=== PATIENT | female | born 1950 | race Caucasian/White ===

== ENCOUNTER 2017-11-03 16:42 | Inpatient (IN) | payer MEDICARE ==
[2017-11-03] MEDS ORDERED: SODIUM CHLORIDE 0.9% 500 ML IV STA (17:08)
[2017-11-03] MEDS ORDERED: SODIUM CHLORIDE 0.9% 1,000 ML IV STA (17:08)
[2017-11-03] MEDS ORDERED: ONDANSETRON 4 MG/2 ML VIAL IVP STA (17:08)
--- NOTE | 2017-11-03 17:12 | ED ---
Nausea/Vomiting/Diarrhea HPI - General Chief complaint: Nausea/Vomiting/Diarrhea Stated complaint: DIARRHEA, VOMITING Time Seen by Provider: 11/03/17 17:03 Source: patient, EMS Mode of arrival: EMS Limitations: no limitations - History of Present Illness Initial comments: 67-year-old female patient presents to the emergency department today for evaluation of vomiting and diarrhea. Patient reports that symptoms started around 5:30 this morning. Daughter reports that around midday she get a neurological checks message from her mother so she called. Reported that she had been vomiting and having diarrhea throughout the day. States that she went to check on her after work and found her on her knees neck to the bed. They're unsure how long she bent down there. Patient reports feeling very weak, having intermittent abdominal pain. Denies any hematemesis, hematochezia, melena. She denies any chest pain, shortness of breath, or dizziness. She denies any fevers or chills. Denies any hematuria, dysuria, urinary frequency, urinary urgency. Patient denies any recent rash, back pain, numbness, tingling, headache, visual changes, or any other complaints. - Related Data Home Medications Medication Instructions Recorded Confirmed ALPRAZolam [Xanax] 0.5 mg PO BID PRN 01/06/16 11/03/17 Aspirin 81 mg PO DAILY 01/06/16 11/03/17 Calcium Carbonate/Vitamin D3 2 tab PO DAILY 01/06/16 11/03/17 [Caltrate 600 Plus D3 Tablet] Fluticasone/Salmeterol [Advair 1 inhalation PO RT-BID 01/06/16 11/03/17 500-50 Diskus] Furosemide [Lasix] 40 mg PO DAILY 01/06/16 11/03/17 Hydrocortisone [Cortef] 10 mg PO BID 01/06/16 11/03/17 Metoprolol Tartrate 12.5 mg PO HS 01/06/16 11/03/17 Montelukast [Singulair] 10 mg PO HS 01/06/16 11/03/17 Multivitamins, Thera [Multivitamin 1 tab PO DAILY 01/06/16 11/03/17 (formulary)] Nitroglycerin Sl Tabs [Nitrostat] 0.4 mg SUBLINGUAL Q5M PRN 01/06/16 11/03/17 Omalizumab [Xolair] 150 mg SQ Q14D 01/06/16 11/03/17 Omeprazole 20 mg PO DAILY 01/06/16 11/03/17 Oxybutynin Chloride 5 mg PO BID 01/06/16 11/03/17 Potassium Chloride [Klor-Con 20] 20 meq PO DAILY 01/06/16 11/03/17 Levothyroxine Sodium [Synthroid] 75 mcg PO DAILY 11/03/17 11/03/17 Allergies Allergy/AdvReac Type Severity Reaction Status Date / Time codeine Allergy Rash/Hives, Verified 11/03/17 16:58 N/V ibuprofen Allergy Anaphylaxis Verified 11/03/17 16:58 lisinopril Allergy Rash/Hives Verified 11/03/17 16:58 naproxen [From Naprosyn] Allergy Anaphylaxis Verified 11/03/17 16:58 streptomycin Allergy Anaphylaxis Verified 11/03/17 16:58 alendronate sodium AdvReac Nausea & Verified 11/03/17 16:58 [From Fosamax] Vomiting Review of Systems ROS Statement: Those systems with pertinent positive or pertinent negative responses have been documented in the HPI. ROS Other: All systems not noted in ROS Statement are negative. Past Medical History Past Medical History: Asthma, COPD, Myocardial Infarction (NM) Additional Past Medical History / Comment(s): See Juan Luis's H&P,uses O2 @ 2 liters NC,urine incont.,daily steroid,pituitary tumor,blind rt eye,loss peripheral vision lt eye Last Myocardial Infarction Date:: 2012 History of Any Multi-Drug Resistant Organisms: MRSA Date of last positivie culture/infection: 2008 MDRO Source:: rt forehead Past Surgical History: Adenoidectomy, Appendectomy, Cholecystectomy, Heart Catheterization With Stent, Hysterectomy, Orthopedic Surgery, Tonsillectomy, Tubal Ligation Additional Past Surgical History / Comment(s): brain surg to remove pituitary tumor,expl lap,vaginal cyst removed,bladder susp,carpel tunnel joseph hands,surg lt foot x3,rt forehead bone removed due to mrsa, artificial cap placed to rt forehead,screws and plate remove from skull,lt cataract,lt breast bx,heart stents x2 Past Anesthesia/Blood Transfusion Reactions: Postoperative Nausea & Vomiting ( PONV) Additional Past Anesthesia/Blood Transfusion Reaction / Comment(s): no hx blood transfusion Date of Last Stent Placement:: 2--2013 Past Psychological History: Anxiety Smoking Status: Former smoker Past Alcohol Use History: None Reported Past Drug Use History: None Reported - Past Family History Mother Family Medical History: Cancer Additional Family Medical History / Comment(s): ovarian Father Family Medical History: COPD Additional Family Medical History / Comment(s): heart problems,emphysema Brother(s) Additional Family Medical History / Comment(s): cabg-4 vessels Sister(s) Family Medical History: Cancer Additional Family Medical History / Comment(s): kidney General Exam Limitations: no limitations General appearance: in no apparent distress, other (This is a well-developed, ill-appearing elderly female patient in no acute distress. Vital signs upon presentation are temperature 97.1F, pulse 113, respirations 18, blood pressure 117/58, pulse ox 94% on room air.) Eye exam: Present: normal appearance, PERRL, EOMI. Absent: scleral icterus, conjunctival injection, periorbital swelling ENT exam: Present: normal exam. Absent: mucous membranes moist (Dry mucous membranes) Respiratory exam: Present: normal lung sounds bilaterally. Absent: respiratory distress, wheezes, rales, rhonchi, stridor Cardiovascular Exam: Present: normal rhythm, tachycardia, normal heart sounds. Absent: systolic murmur, diastolic murmur, rubs, gallop, clicks GI/Abdominal exam: Present: soft, tenderness (Right and left lower quadrant tenderness), normal bowel sounds. Absent: distended, guarding, rebound, rigid Neurological exam: Present: oriented X3, CN II-XII intact. Absent: alert ( Drowsy) Psychiatric exam: Present: normal affect, normal mood Skin exam: Present: warm, dry, intact, normal color. Absent: rash Course Vital Signs 11/03/17 11/03/17 11/03/17 16:45 19:55 20:05 Temperature 97.1 F L 100.1 F H 100.1 F H Pulse Rate 113 H 109 H Respiratory 18 20 Rate Blood Pressure 117/58 124/59 O2 Sat by Pulse 94 L 94 L Oximetry 11/03/17 21:34 Temperature 102.0 F H Pulse Rate 109 H Respiratory 20 Rate Blood Pressure 124/59 O2 Sat by Pulse 96 Oximetry Medical Decision Making - Medical Decision Making 67-year-old female patient presents to the emergency department today for evaluation of vomiting and diarrhea. Patient did have some mild lower abdominal tenderness. Labs reviewed and showed a white blood cell count of 11.3 , BUN of 21, creatinine 1.29. Urinalysis was negative. Patient did develop a temperature towards and of her visit. She'll be admitted to the emergency department today for dehydration, acute on chronic renal failure, gastroenteritis. - Lab Data Result diagrams: 11/03/17 18:05 11/03/17 18:05 Lab Results 11/03/17 11/03/17 11/03/17 Range/Units 18:05 18:05 19:13 WBC 11.3 H (3.8-10.6) k/uL RBC 5.04 (3.80-5.40) m/uL Hgb 15.3 (11.4-16.0) gm/dL Hct 46.3 H (34.0-46.0) % MCV 91.9 (80.0-100.0) fL MCH 30.4 (25.0-35.0) pg MCHC 33.1 (31.0-37.0) g/dL RDW 12.4 (11.5-15.5) % Plt Count 239 (150-450) k/uL Neutrophils % 80 % Lymphocytes % 12 % Monocytes % 5 % Eosinophils % 2 % Basophils % 0 % Neutrophils # 9.1 H (1.3-7.7) k/uL Lymphocytes # 1.3 (1.0-4.8) k/uL Monocytes # 0.5 (0-1.0) k/uL Eosinophils # 0.3 (0-0.7) k/uL Basophils # 0.1 (0-0.2) k/uL Sodium 143 (137-145) mmol/L Potassium 4.3 (3.5-5.1) mmol/L Chloride 108 H (98-107) mmol/L Carbon Dioxide 24 (22-30) mmol/L Anion Gap 11 mmol/L BUN 21 H (7-17) mg/dL Creatinine 1.29 H (0.52-1.04) mg/dL Est GFR (CKD-EPI)AfAm 49 (>60 ml/min/1.73 sqM) Est GFR (CKD-EPI)NonAf 42 (>60 ml/min/1.73 sqM) Glucose 99 (74-99) mg/dL Calcium 8.2 L (8.4-10.2) mg/dL Total Bilirubin 0.6 (0.2-1.3) mg/dL AST 39 H (14-36) U/L ALT 31 (9-52) U/L Alkaline Phosphatase 62 (38-126) U/L Creatine Kinase 109 (30-135) U/L Total Protein 6.1 L (6.3-8.2) g/dL Albumin 3.6 (3.5-5.0) g/dL Amylase 51 (30-110) U/L Lipase 146 (23-300) U/L Urine Color Yellow Urine Appearance Clear (Clear) Urine pH 8.0 (5.0-8.0) Ur Specific [place] 1.012 (1.001-1.035) Urine Protein Trace H (Negative) Urine Glucose (UA) Negative (Negative) Urine Ketones Negative (Negative) Urine Blood Negative (Negative) Urine Nitrite Negative (Negative) Urine Bilirubin Negative (Negative) Urine Urobilinogen <2.0 (<2.0) mg/dL Ur Leukocyte Esterase Negative (Negative) - Radiology Data Radiology results: report reviewed, image reviewed Two-view x-ray of the abdomen shows bowel gas pattern is normal. There is no sign of intestinal obstruction or pneumoperitoneum. Fecal pattern is normal. There are clips from cholecystectomy. Lung bases are clear. There are no pathologic calcifications over the kidneys. Impression by Dr. Marinelli shows nonacute abdomen. Disposition Clinical Impression: Gastroenteritis, Altered mental status, unspecified Disposition: ADMITTED IP TO THIS [facility] Condition: Serious Decision to Admit Reason: Admit from EC Decision Date: 11/03/17 Decision Time: 19:52
[2017-11-03 18:22] LABS: Basophils # (A) 0.1 k/uL (0-0.2); Basophils % (A) 0 %; Eosinophils # (A) 0.3 k/uL (0-0.7); Eosinophils % (A) 2 %; HCT 46.3 % (34.0-46.0); HGB 15.3 gm/dL (11.4-16.0); Lymphocytes # (A) 1.3 k/uL (1.0-4.8); Lymphocytes % (A) 12 %; MCH 30.4 pg (25.0-35.0); MCHC 33.1 g/dL (31.0-37.0); MCV 91.9 fL (80.0-100.0); Mean Platelet Volume 9.5; Monocytes # (A) 0.5 k/uL (0-1.0); Monocytes % (A) 5 %; Neutrophils # (A) 9.1 k/uL (1.3-7.7); Neutrophils % (A) 80 %; Platelet Count 239 k/uL (150-450); RBC 5.04 m/uL (3.80-5.40); RDW 12.4 % (11.5-15.5); WBC 11.3 k/uL (3.8-10.6)
[2017-11-03 18:26] LABS: Albumin 3.6 g/dL (3.5-5.0); Calcium 8.2 mg/dL (8.4-10.2); Potassium 4.3 mmol/L (3.5-5.1); Total Bilirubin 0.6 mg/dL (0.2-1.3); Total Protein 6.1 g/dL (6.3-8.2)
--- NOTE | 2017-11-03 18:46 | XR ---
EXAMINATION TYPE: XR KUB DATE OF EXAM: 11/03/2017 COMPARISON: NONE HISTORY: Fever and weakness TECHNIQUE: 2 views FINDINGS: Bowel gas pattern is normal. There is no sign of intestinal obstruction or pneumoperitoneum . Fecal pattern is normal. There are clips from cholecystectomy. Lung bases are clear. There are no p athologic calcifications over the kidneys. IMPRESSION: Nonacute abdomen.
[2017-11-03 19:31] LABS: Appearance,Urine Clear (Clear); Bilirubin,Urine Negative (Negative); Blood,Urine Negative (Negative); Color,Urine Yellow; Glucose,Urine (UA) Negative (Negative); Ketones,Urine Negative (Negative); Leukocyte Esterase,Urine Negative (Negative); Nitrite,Urine Negative (Negative); Protein,Urine Trace (Negative); Specific Gravity,Urine 1.012 (1.001-1.035); Urobilinogen,Urine <2.0 mg/dL (<2.0)
[2017-11-03] MEDS ORDERED: NALOXONE 0.4 MG/ML 1 ML VIAL IV PRN (19:48)
[2017-11-03] MEDS ORDERED: ONDANSETRON 4 MG/2 ML VIAL IVP PRN (19:48)
[2017-11-03] MEDS ORDERED: ACETAMINOPHEN TAB 500 MG TAB PO STA (20:08)
[2017-11-04] MEDS: SODIUM CHLORIDE 0.9% 1,000 ML IV SCH ×5 (02:58→22:20)
[2017-11-04 09:00] LABS: Basophils # (A) 0.1 k/uL (0-0.2); Basophils % (A) 1 %; Eosinophils # (A) 0.2 k/uL (0-0.7); Eosinophils % (A) 3 %; HCT 40.5 % (34.0-46.0); HGB 13.6 gm/dL (11.4-16.0); Lymphocytes # (A) 1.9 k/uL (1.0-4.8); Lymphocytes % (A) 22 %; MCH 31.4 pg (25.0-35.0); MCHC 33.5 g/dL (31.0-37.0); MCV 93.5 fL (80.0-100.0); Mean Platelet Volume 8.9; Monocytes # (A) 0.5 k/uL (0-1.0); Monocytes % (A) 6 %; Neutrophils # (A) 5.9 k/uL (1.3-7.7); Neutrophils % (A) 68 %; Platelet Count 207 k/uL (150-450); RBC 4.33 m/uL (3.80-5.40); RDW 12.4 % (11.5-15.5); WBC 8.7 k/uL (3.8-10.6)
[2017-11-04 09:41] LABS: Albumin 2.8 g/dL (3.5-5.0); Calcium 7.1 mg/dL (8.4-10.2); Potassium 3.8 mmol/L (3.5-5.1); Total Bilirubin 0.6 mg/dL (0.2-1.3); Total Protein 5.1 g/dL (6.3-8.2)
[2017-11-04] MEDS ORDERED: NITROGLYCERIN SL TABS 0.4 MG TAB SUBLINGUAL PRN (13:15)
[2017-11-04] MEDS ORDERED: OMALIZUMAB 150 MG VIAL SQ SCH (13:15)
[2017-11-04] MEDS: ACETAMINOPHEN TAB 325 MG TAB PO PRN ×2 (14:33→21:19)
[2017-11-04] MEDS: HYDROCORTISONE SUCCINATE 100 MG/2 ML VIAL IV SCH ×2 (16:13→23:11)
--- NOTE | 2017-11-04 18:17 | HP ---
HISTORY AND PHYSICAL CHIEF COMPLAINTS: Nausea and vomiting, diarrhea. HISTORY OF PRESENT ILLNESS: This 67-year-old woman with a past medical history of multiple medical problems including asthma, COPD, history of myocardial infarction, history of steroid dependence adenoidectomy, bladder surgery, CAD stent, brain surgery removed, pituitary tumor, being followed by Dr. Ramon in the outpatient setting complaining of nausea and diarrhea for the last several days and the patient came to [facility] and admitted for further evaluation and treatment. There is no history of fever, rigors. No history of headache, loss of consciousness, seizures. PAST MEDICAL HISTORY: History of asthma, COPD, microinfarction, history of appendectomy, bladder surgery, CAD stent, anxiety. MEDICATIONS: Prior to admission include home medications are: 1. Lasix 40 mg p.o. daily. 2. Klor-Con 20 mEq p.o. daily. 3. Oxybutynin 5 mg p.o. b.i.d. 4. Omeprazole 20 mg p.o. daily. 5. Xolair 150 mg Q 14 days. 6. Nitrostat 0.4 sublingual p.r.n. 7. Multivitamins 1 p.o. daily. 8. Singular 10 mg q.h.s. 9. Metoprolol 12.5 mg q.h.s. 10.Synthroid 75 mcg. 11.Cortef 10 mg p.o. b.i.d. 12.Advair 500/50 1 puff b.i.d. 13.Caltrate 1 to 2 tablets p.o. daily. 14.Aspirin 81 mg p.o. 15.Xanax 0.5 p.o. b.i.d. p.r.n. ALLERGIES: ARE CODEINE, IBUPROFEN, LISINOPRIL, NAPROSYN, STREPTOMYCIN, FOSAMAX. FAMILY HISTORY: History of ovarian cancer. SOCIAL HISTORY: No history of smoking. No history of alcohol intake. Previous history of smoking. REVIEW OF SYSTEMS: ENT: No diminished vision. No diminished hearing. CARDIOVASCULAR: No angina or palpitations. Respiratory: No cough. GI: As mentioned earlier. : No dysuria or retention. NERVOUS SYSTEM: No numbness or weakness. Allergy/Immunology: No asthma or hayfever. Musculoskeletal as mentioned earlier. Hematology/Oncology: No history of anemia. Endocrine: Hypothyroidism. CONSTITUTIONAL: As mentioned earlier. Dermatology: Negative. Rheumatology: As mentioned earlier. Psychiatric: As mentioned earlier. PHYSICAL EXAMINATION: Alert, oriented times three, pulse 92, blood pressure 100/59, respiration 18, temperature 102.8, pulse ox 97% on room air. HEENT: Conjunctivae normal. Oral mucosa dry. Neck is no jugular venous distention. No carotid bruit. No lymph node enlargement. Cardiovascular: S1-S2 muffled. Respiratory: Breath sounds diminished in the bases. No rhonchi. No crackles. ABDOMEN: Soft, nontender. No mass palpable. Legs no edema and no swelling. NERVOUS SYSTEM: Higher functions as mentioned earlier. Moves all four limbs. No focal deficits. Lymphatics: No lymph nodes palpable in the neck, axillae or groin. SKIN: No ulcer, rashes or bleeding. LAB DATA: CBC within normal limits. Otherwise, creatinine is 1.30 and calcium is 7.1 and albumin is 2.8. ASSESSMENT: 1. Nausea and diarrhea possible acute gastroenteritis. 2. Fever for evaluation. 3. Increased creatinine with possibly chronic kidney stage 3. 4. History of pituitary insufficiency. 5. Asthma/chronic obstructive pulmonary disease. 6. History of myocardial infarction. 7. History of adenoidectomy. 8. History of coronary artery disease, stent. 9. History of brain surgery with pituitary tumor removal. 10.History of anxiety. 11.Remote history of nicotine dependence. RECOMMENDATIONS AND DISCUSSION: In this 67-year-old woman with a past history of multiple medical problems, we will monitor the patient closely, continue the current medications, continue symptomatic treatment. I recommend blood cultures and I would also recommend infectious disease evaluation. Otherwise, stress dose IV steroids have been planned at this time. Continue the rest of the medications. Continue IV fluids. We will also check random cortisols tomorrow. Otherwise, C difficile and urine testing is also done and acute hepatitis panel. Stool WBC stool culture. Guarded prognosis because of multiple complex medical issues. Further recommendations to follow. MMODL / IJN: [id number] /
[2017-11-04] MEDS: SYMBICORT 160-4.5 MCG INHALER INHALATION SCH (19:03)
[2017-11-04 20:14] LABS: Hepatitis A Antibody IgM Non-Reactive (Non-Reactive); Hepatitis B Core IgM Non-Reactive (Non-Reactive)
[2017-11-04] MEDS: MONTELUKAST 10 MG TAB PO SCH (21:13)
[2017-11-04] MEDS: OXYBUTYNIN CHLORIDE 5 MG TAB PO SCH (21:13)
[2017-11-04] MEDS: ALPRAZolam 0.5 MG TAB PO PRN (21:19)
[2017-11-04] MEDS: METOPROLOL TARTRATE 12.5 MG TAB PO SCH (23:10)
[2017-11-04] MEDS ORDERED: CEFTRIAXONE IVPB SCH (23:36)
[2017-11-04] MEDS ORDERED: SODIUM CHLORIDE 0.9% IVPB SCH (23:36)
[2017-11-05] MEDS: cefTRIAXone IN SWFI 1,000 MG/10 ML SYRINGE IVP SCH ×2 (00:42→23:57)
[2017-11-05] MEDS: metroNIDAZOLE-NS PMX 500 MG in SALINE 1 100ML.BAG IVPB SCH ×4 (00:52→23:53)
[2017-11-05] MEDS: SODIUM CHLORIDE 0.9% 1,000 ML IV SCH ×4 (04:50→20:55)
[2017-11-05] MEDS: LEVOTHYROXINE 75 MCG TAB PO SCH (04:51)
[2017-11-05] MEDS: SYMBICORT 160-4.5 MCG INHALER INHALATION SCH ×2 (06:58→19:41)
--- NOTE | 2017-11-05 07:18 | CONS ---
CONSULTATION DATE OF SERVICE: 11/04/2017. REASON FOR CONSULTATION: Infection. HISTORY OF PRESENT ILLNESS: The patient is a 67-year-old female who was brought into the ER at [facility] last night with chief complaints of intractable nausea and vomiting. Apparently symptoms started early in the morning and started initially with intractable nausea and vomiting. The patient unable to keep anything down followed by developing of diarrhea multiple loose stools. No blood or mucus in it. The patient denies significant abdominal pain though. The patient did mention that she was taken to a restaurant for her birthday the night before where she ate a hamburger. She was accompanied by her girlfriend, which is currently without any active symptoms. With these symptoms the patient has been brought into the ER. On arrival to the ER, the patient did have a low-grade fever of 100.1. Subsequently did spike a fever of 102, with a fever of 102.8 this afternoon that prompted this infectious disease consultation. Patient is hemodynamically stable though. White count slightly elevated at 11.3, 8.7 today and mild elevated BUN and creatinine. She did have stool for C. difficile, which came back negative. Influenza serology has been negative. Patient did receive Rocephin in the ER and none antibiotic was continued and infectious disease was consulted for further recommendation regarding antibiotic therapy. REVIEW OF SYSTEMS: CONSTITUTIONAL: Positive for weakness along with the fever. Eyes: No complaint. ENT: No complaint. Respiratory: No complaint. Cardiovascular no complaint. Genitourinary no complaint. Gastrointestinal: As per HPI: Musculoskeletal no complaint. Integumentary no complaint. Psychological no complaint. Endocrine no complaint. Neurological no complaint. PAST MEDICAL HISTORY: Significant for asthma and COPD, NC. Previous history of MRSA infection from the right forehead. PAST SURGICAL HISTORY: Adenoidectomy, appendectomy, cholecystectomy, PTCA with stent, tonsillectomy, tubal ligation, brain surgery, cyst removed, pituitary tumor. SOCIAL HISTORY: Remote history of smoking. No drinking or drug use. FAMILY HISTORY: Mother with history of ovarian cancer. Father with history of COPD and emphysema, brother with history of coronary artery disease. ALLERGIES: TO CODEINE, IBUPROFEN, LISINOPRIL, STREPTOMYCIN AND FOSAMAX. MEDICATIONS: Medication includes the patient is currently on: 1Ditropan. 3. Zofran. 4. Nitrostat. 5. Narcan. 6. Theragran. 7. Singulair. 8. Lopressor. 9. Synthroid. 10.Solu-Cortef. 11.Lasix. 12.Symbicort. 13.Xanax. 14.Tylenol. EXAMINATION: Blood pressure 95/58 with a pulse of 72, temperature 98.1, T-max 102.8. She is 95% on 2 L nasal cannula. General description is an elderly female, lying in bed in no distress. No tachypnea or accessory muscles of respiration use. HEENT: Shows no pallor or scleral icterus. Oral mucosal membranes dry. No significant erythema or thrush. Neck trachea central. No thyromegaly. Lungs unlabored breathing. Clear to auscultation. No wheeze or crackles. Heart S1, S2. Regular rate and rhythm. No loud murmur. ABDOMEN: Soft. She has mild tenderness right upper quadrant area. No guarding and no rigidity. No organomegaly. EXTREMITIES: No edema of the feet. Skin examination: No rash or mass palpable. Neurological: Patient is awake, alert, oriented x3. Mood and affect normal. LABS: Hemoglobin 13.6, white count 8.7. Admission white count was 11.1. BUN and creatinine was slightly elevated. Electrolytes has been normal. Urine is negative. Stool for C difficile is negative. Stool cultures currently pending. DIAGNOSTIC IMPRESSION AND PLAN: Patient admitted to the hospital with intractable nausea and vomiting along with diarrhea. The patient's symptoms started abruptly with vomiting. The patient has eaten hamburger the other day, night before likely pointing towards acute gastroenteritis to be likely responsible for this episode of a sepsis of gastrointestinal origin. The concern for possible gram-negative bacterial infection as the patient clinical has no other clinical focus of infection. PLAN: 1. We will start the patient on Rocephin 1 g daily, Flagyl 500 mg q.8 hours. 2. Begin aggressive IV fluid. 3. Depending upon the clinical response as well as cultures we will adjust her medications further if needed. Thank you for this consultation. We will follow this patient along with you. MMODL / IJN: [id number] / MTDD
[2017-11-05] MEDS: OXYBUTYNIN CHLORIDE 5 MG TAB PO SCH ×2 (08:12→20:51)
[2017-11-05] MEDS: HYDROCORTISONE SUCCINATE 100 MG/2 ML VIAL IV SCH ×3 (08:12→23:53)
[2017-11-05] MEDS: FUROSEMIDE 40 MG TAB PO SCH (08:12)
[2017-11-05 08:54] LABS: Basophils % (A) 0 %; Eosinophils % (A) 0 %; HCT 39.3 % (34.0-46.0); Lymphocytes # (A) 0.9 k/uL (1.0-4.8); Lymphocytes % (A) 14 %; MCH 30.9 pg (25.0-35.0); MCHC 33.1 g/dL (31.0-37.0); MCV 93.2 fL (80.0-100.0); Mean Platelet Volume 8.8; Monocytes # (A) 0.3 k/uL (0-1.0); Monocytes % (A) 4 %; Neutrophils # (A) 5.3 k/uL (1.3-7.7); Neutrophils % (A) 80 %; Platelet Count 174 k/uL (150-450); RBC 4.22 m/uL (3.80-5.40); RDW 12.3 % (11.5-15.5); WBC 6.6 k/uL (3.8-10.6)
[2017-11-05 09:05] LABS: Albumin 2.8 g/dL (3.5-5.0); Calcium 7.4 mg/dL (8.4-10.2); Potassium 4.1 mmol/L (3.5-5.1); Total Bilirubin 0.3 mg/dL (0.2-1.3); Total Protein 5.1 g/dL (6.3-8.2)
[2017-11-05] MEDS: MULTIVITAMINS, THERA 1 EACH TAB PO SCH (12:40)
--- NOTE | 2017-11-05 13:55 | P.PN ---
Subjective Progress Note Date: 11/05/17 Progress Note being dictated for Dr. Mcgee. Interval history: This a 67-year-old female admitted with nausea vomiting, renal failure, fever and multiple other medical issues. Maintained on IV antibiotics of Rocephin along with Flagyl as per infectious disease. Tested negative for C. difficile colitis. T-max 102.8. Blood cultures, urine cultures , stool occult pending. Maintained on IV fluid hydration with renal function improving. Continues on stress doses of steroids. Random cortisol level 24. Nausea and vomiting subsided, tolerating clear liquids today. Reports mild diarrhea this morning. Denies chest pain, palpitations or increasing shortness of breath. Objective - Vital Signs Vital signs: Vital Signs Temp 98.1 F 11/05/17 05:55 Pulse 82 11/05/17 05:55 Resp 16 11/05/17 05:55 BP 101/55 11/05/17 05:55 Pulse Ox 93 L 11/05/17 05:55 Intake & Output 11/04/17 11/05/17 11/05/17 18:59 06:59 18:59 Weight 79.5 kg Other: # Voids 3 3 # Bowel Movements 2 - Exam PHYSICAL EXAM: VITAL SIGNS: As above GENERAL: Lying in bed, tired appearing HEENT: Conjunctivae normal. eyes normal. Oral mucosa dry NECK: No JVD. No thyroid enlargement. No LNs CARDIOVASCULAR: S1, S2 muffled. No murmur RESPIRATION: Breath sounds diminished in the bases. No rhonchi or crackles. ABDOMEN: Soft, mild diffuse tenderness . No guarding. no masses palpable. Bowel sounds heard. LEGS: No edema. no swelling PSYCHIATRY: Alert and oriented -3, mood and affect normal. NERVOUS SYSTEM: Cranial N 2-12 grossly normal. Moves all 4 limbs. Diffuse weakness No focal deficits. Skin: no ulcer no rash Joints: No active swelling. No inflammation. Lymphatic system. No LN neck axilla or groin. Microbiology 11/04/17 17:40 Urine,Voided Urine Culture - Preliminary 11/04/17 09:00 Stool Stool for WBCs - Final 11/04/17 09:00 Stool Stool Culture - Preliminary - Labs CBC & Chem 7: 11/05/17 08:02 11/05/17 08:02 Labs: Abnormal Lab Results - Last 24 Hours (Table) 11/05/17 11/05/17 Range/Units 08:02 08:02 Lymphocytes # 0.9 L (1.0-4.8) k/uL Chloride 111 H (98-107) mmol/L Calcium 7.4 L (8.4-10.2) mg/dL AST 45 H (14-36) U/L Total Protein 5.1 L (6.3-8.2) g/dL Albumin 2.8 L (3.5-5.0) g/dL Microbiology - Last 24 Hours (Table) 11/04/17 17:40 Urine Culture - Preliminary Urine,Voided 11/04/17 09:00 Stool for WBCs - Final Stool 11/04/17 09:00 Stool Culture - Preliminary Stool Assessment and Plan Assessment: 1. Nausea, diarrhea, possible acute gastroenteritis 2 fevers for evaluation 3. Acute on possibly chronic renal failure stage III, improving with IV fluid hydration 4. History of pituitary insufficiency. Random cortisol level 24 prior to 10 AM. Plan: Continue on current medication regime , steroids, monitoring and symptomatic treatment. Follow cultures closely. Maintain IV fluid hydration. Antibiotics as per infectious disease. Increase ambulation as tolerated. The impression and plan of care has been dictated as directed. : I performed a history and examination of this patient, discussed the same with the dictator. I agree with the dictator's note ,documented as a scribe. Any additional findings or plans will be noted.
--- NOTE | 2017-11-05 16:24 | PN ---
PROGRESS NOTE DATE OF SERVICE: 11/05/2017. REASON FOR FOLLOWUP: Acute gastroenteritis, questionable food poisoning. INTERVAL HISTORY: The patient is afebrile. She is feeling better. Her nausea and vomiting has improved. She has not thrown up anything. Tolerating clear liquids. She did have some loose stools this morning, though denies any chest pain, shortness or breath or cough, no abdominal pain. EXAMINATION: Blood pressure 101/55, pulse 82, temperature 98.1. She is 93% on 2 L nasal cannula. General description is an elderly female, lying in bed in no distress. Respiratory system: Unlabored breathing, clear to auscultation anteriorly. Heart S1, S2. Regular rate and rhythm. Abdomen soft, no tenderness. No rigidity. Extremities: No edema of the feet. LABS: Hemoglobin is 13.2, white count 6.6 with a BUN of 9, creatinine 0.84. Stool for C difficile was negative. Stool culture currently pending. DIAGNOSTIC IMPRESSION AND PLAN: Patient admitted to the hospital with acute nausea, vomiting and diarrhea with question of possible food poisoning versus gastroenteritis viral versus bacteria. She is responding to Rocephin and Flagyl that will be continued while waiting for the stool culture to finalize. Slowly advance the diet. Continue supportive care. MMODL / IJN: [id number] /
[2017-11-05] MEDS: ALBUTEROL NEBULIZED 2.5 MG/3 ML INHALATION SCH (19:40)
[2017-11-05] MEDS: MONTELUKAST 10 MG TAB PO SCH (20:51)
[2017-11-05] MEDS: ALPRAZolam 0.5 MG TAB PO PRN (20:53)
[2017-11-05] MEDS: METOPROLOL TARTRATE 12.5 MG TAB PO SCH (20:55)
[2017-11-06] MEDS: LEVOTHYROXINE 75 MCG TAB PO SCH (06:32)
[2017-11-06] MEDS: SODIUM CHLORIDE 0.9% 1,000 ML IV SCH ×2 (06:33→12:56)
[2017-11-06] MEDS: SYMBICORT 160-4.5 MCG INHALER INHALATION SCH ×2 (06:55→19:28)
[2017-11-06] MEDS: ALBUTEROL NEBULIZED 2.5 MG/3 ML INHALATION SCH ×2 (06:57→19:28)
[2017-11-06] MEDS: FUROSEMIDE 40 MG TAB PO SCH (07:53)
[2017-11-06] MEDS: metroNIDAZOLE-NS PMX 500 MG in SALINE 1 100ML.BAG IVPB SCH ×3 (07:53→23:51)
[2017-11-06] MEDS: OXYBUTYNIN CHLORIDE 5 MG TAB PO SCH ×2 (07:53→20:42)
[2017-11-06] MEDS: HYDROCORTISONE SUCCINATE 100 MG/2 ML VIAL IV SCH ×3 (07:53→23:40)
[2017-11-06 08:32] LABS: Basophils % (A) 0 %; Eosinophils % (A) 0 %; HCT 35.2 % (34.0-46.0); HGB 11.8 gm/dL (11.4-16.0); Lymphocytes # (A) 1.1 k/uL (1.0-4.8); Lymphocytes % (A) 15 %; MCH 30.8 pg (25.0-35.0); MCHC 33.6 g/dL (31.0-37.0); MCV 91.5 fL (80.0-100.0); Mean Platelet Volume 9.7; Monocytes # (A) 0.3 k/uL (0-1.0); Monocytes % (A) 4 %; Neutrophils # (A) 6.1 k/uL (1.3-7.7); Neutrophils % (A) 80 %; Platelet Count 172 k/uL (150-450); RBC 3.84 m/uL (3.80-5.40); RDW 12.2 % (11.5-15.5); WBC 7.7 k/uL (3.8-10.6)
[2017-11-06 08:45] LABS: Albumin 2.8 g/dL (3.5-5.0); Anion Gap 11 mmol/L; Carbon Dioxide 20 mmol/L (22-30); Chloride 114 mmol/L (98-107); Glucose 116 mg/dL (74-99); Potassium 3.7 mmol/L (3.5-5.1); Sodium 145 mmol/L (137-145)
[2017-11-06 08:46] LABS: ALT 44 U/L (9-52); AST 51 U/L (14-36); Alkaline Phosphatase 61 U/L (38-126); Blood Urea Nitrogen 6 mg/dL (7-17); Calcium 7.9 mg/dL (8.4-10.2); Total Bilirubin 0.3 mg/dL (0.2-1.3)
[2017-11-06] MEDS: MULTIVITAMINS, THERA 1 EACH TAB PO SCH (12:56)
[2017-11-06] MEDS: ACETAMINOPHEN TAB 325 MG TAB PO PRN (18:49)
--- NOTE | 2017-11-06 19:28 | PN ---
PROGRESS NOTE DATE OF SERVICE: 11/06/2017. REASON FOR FOLLOWUP: Acute gastroenteritis, possible bacterial INTERVAL HISTORY: The patient is afebrile. The patient is breathing comfortably. Denies having any chest pain or shortness of breath. No cough. No abdominal pain. Her diarrhea has resolved. Did have soft bowel movement today. Able to tolerate a regular diet. PHYSICAL EXAMINATION: On examination blood pressure 103/49, pulse of 67, temperature of 96.7, he is 98 % on 2 L nasal cannula. General description is an elderly female lying in bed in no distress. Respiratory system: Unlabored breathing, clear to auscultation anteriorly. Heart S1, S2. Regular rate and rhythm. Abdomen soft, no tenderness. LABS: Hemoglobin 11.8, white count 7.7 with BUN of 6, creatinine 0.73. Stool cultures so far negative. DIAGNOSTIC IMPRESSION AND PLAN: Patient admitted to the hospital with acute nausea, vomiting and diarrhea, more likely related to the food poisoning or acute gastritis, could have been viral. The patient's symptom have resolved. May give a short course of oral Flagyl for about 3-5 days to finish her therapy. Continue supportive care. MMODL / IJN: [id number] / MTDD
[2017-11-06] MEDS: METOPROLOL TARTRATE 12.5 MG TAB PO SCH (20:41)
[2017-11-06] MEDS: MONTELUKAST 10 MG TAB PO SCH (20:42)
[2017-11-06] MEDS: ALPRAZolam 0.5 MG TAB PO PRN (20:44)
[2017-11-06] MEDS: cefTRIAXone IN SWFI 1,000 MG/10 ML SYRINGE IVP SCH (23:39)
--- NOTE | 2017-11-06 23:40 | P.PN ---
Subjective Progress Note Date: 11/06/17 Principal diagnosis: Acute gastroenteritis Ms. Keen is a 67-year-old female with a past medical history of CK D, Pitutiary insufficiency admitted to the hospital with a chief complaint of nausea vomiting or diarrhea. She is currently being treated for acute gastroenteritis with IV antibiotics in the form of Flagyl and ceftriaxone. Patient is clinically improving and states that her nausea and vomiting is better. Today she is lying in bed appears to be no acute distress no acute overnight issues. Review of systems; Patient denies having any chest pain, , palpitations, shortness of breath. No abdominal pain. Nausea and vomiting improved. No difficulty in breathing or cough. No fever chills or rigors. No dysuria or hematuria. Objective - Vital Signs Vital signs: Vital Signs Temp 96.7 F L 11/06/17 14:37 Pulse 67 11/06/17 14:37 Resp 16 11/06/17 14:37 BP 103/49 11/06/17 14:37 Pulse Ox 98 11/06/17 14:37 Intake & Output 11/06/17 11/06/17 11/07/17 06:59 18:59 06:59 Intake Total 1800 Balance 1800 Intake: Oral 1800 Other: Voiding Method Bedside Commode # Voids 5 4 1 # Bowel Movements 1 - Exam GENERAL EXAM GEN. APPEARANCE: alert, in no apparent distress HEAD EXAM: atraumatic, normocephalic, normal inspection EYE EXAM: normal appearance, PERRL, EOMI. Absent: scleral icterus, conjunctival injection, periorbital swelling ENT EXAM: normal exam, mucous membranes moist NECK EXAM: normal inspection. Absent: tenderness, meningismus, full ROM, lymphadenopathy RESPIRATORY EXAM: normal lung sounds bilaterally. Absent: respiratory distress , wheezes, rales, rhonchi, stridor CARDIOVASCULAR EXAM: regular rate, normal rhythm, normal heart sounds. Absent : systolic murmur, diastolic murmur, rubs, gallop, clicks GI/ABDOMINAL EXAM: soft, normal bowel sounds. Absent: distended, tenderness, guarding, rebound, rigid EXTREMITIES EXAM: normal inspection, full ROM, normal capillary refill. Absent : tenderness, pedal edema, joint swelling, calf tenderness NEUROLOGICAL EXAM: alert, oriented X3, CN II-XII intact, motor sensory deficit PSYCHIATRIC EXAM: normal affect, normal mood SKIN EXAM: warm, dry, intact, normal color. Absent: rash - Labs CBC & Chem 7: 11/07/17 09:42 11/07/17 09:42 Labs: Abnormal Lab Results - Last 24 Hours (Table) 11/06/17 Range/Units 07:38 Chloride 114 H (98-107) mmol/L Carbon Dioxide 20 L (22-30) mmol/L BUN 6 L (7-17) mg/dL Glucose 116 H (74-99) mg/dL Calcium 7.9 L (8.4-10.2) mg/dL AST 51 H (14-36) U/L Total Protein 5.0 L (6.3-8.2) g/dL Albumin 2.8 L (3.5-5.0) g/dL Microbiology - Last 24 Hours (Table) 11/04/17 13:39 Blood Culture - Preliminary Blood No Growth after 48 hours 11/04/17 09:00 Stool Culture - Preliminary Stool 11/04/17 17:40 Urine Culture - Final Urine,Voided Assessment and Plan Assessment: ASSESSMENT Acute gastroenteritis Acute on chronic kidney injury CK D stage III History of pituitary insufficiency History of MRSA infection History of asthma and COPD Moderate protein calorie malnutrition Plan: Patient will be continued on IV fluids and IV antibiotics and she is showing good response. If clinically patient is better anticipate discharge in the next 24 hours.
[2017-11-07] MEDS: SODIUM CHLORIDE 0.9% 1,000 ML IV SCH ×2 (04:18→12:51)
[2017-11-07] MEDS: LEVOTHYROXINE 75 MCG TAB PO SCH (06:24)
[2017-11-07 07:20] VITALS: BP 100/57; TEMP 97.1
[2017-11-07] MEDS: OXYBUTYNIN CHLORIDE 5 MG TAB PO SCH (08:47)
[2017-11-07] MEDS: HYDROCORTISONE SUCCINATE 100 MG/2 ML VIAL IV SCH (08:47)
[2017-11-07] MEDS: metroNIDAZOLE-NS PMX 500 MG in SALINE 1 100ML.BAG IVPB SCH (08:47)
[2017-11-07] MEDS: FUROSEMIDE 40 MG TAB PO SCH (08:47)
[2017-11-07] MEDS: ALBUTEROL NEBULIZED 2.5 MG/3 ML INHALATION SCH ×2 (09:18→09:57)
[2017-11-07] MEDS: SYMBICORT 160-4.5 MCG INHALER INHALATION SCH ×2 (09:18→09:57)
[2017-11-07 10:02] VITALS: RESP 20
[2017-11-07 10:14] VITALS: PULSE 68
[2017-11-07 10:15] LABS: Basophils % (A) 0 %; Eosinophils % (A) 1 %; HCT 35.9 % (34.0-46.0); HGB 11.9 gm/dL (11.4-16.0); Lymphocytes # (A) 1.6 k/uL (1.0-4.8); Lymphocytes % (A) 16 %; MCH 30.6 pg (25.0-35.0); MCHC 33.3 g/dL (31.0-37.0); MCV 91.8 fL (80.0-100.0); Mean Platelet Volume 10.5; Monocytes # (A) 0.6 k/uL (0-1.0); Monocytes % (A) 6 %; Neutrophils # (A) 7.4 k/uL (1.3-7.7); Neutrophils % (A) 76 %; Platelet Count 192 k/uL (150-450); RBC 3.91 m/uL (3.80-5.40); RDW 12.6 % (11.5-15.5); WBC 9.8 k/uL (3.8-10.6)
[2017-11-07 10:29] LABS: ALT 52 U/L (9-52); AST 52 U/L (14-36); Albumin 2.8 g/dL (3.5-5.0); Alkaline Phosphatase 53 U/L (38-126); Anion Gap 10 mmol/L; Blood Urea Nitrogen 8 mg/dL (7-17); Calcium 7.8 mg/dL (8.4-10.2); Carbon Dioxide 26 mmol/L (22-30); Chloride 113 mmol/L (98-107); Glucose 105 mg/dL (74-99); Potassium 3.1 mmol/L (3.5-5.1); Sodium 149 mmol/L (137-145); Total Bilirubin 0.5 mg/dL (0.2-1.3)
[2017-11-07] MEDS ORDERED: Potassium Replacement Protocol 1 EACH MISC MISCELLANE PRN (12:01)
[2017-11-07] MEDS: MULTIVITAMINS, THERA 1 EACH TAB PO SCH (12:53)
[2017-11-07] MEDS: POTASSIUM CHLORIDE ER 20 MEQ TAB.ER PO SCH ×2 (12:53→13:12)
--- NOTE | 2017-11-07 14:59 | PN ---
PROGRESS NOTE DATE OF SERVICE: 11/07/2017. REASON FOR FOLLOWUP VISIT: Acute gastroenteritis, question for food poisoning or viral. INTERVAL HISTORY: The patient is seen on this morning. The patient has been feeling better. She is breathing comfortably. Denies having any chest pain or shortness of breath or cough. No abdominal pain. She did have 1 slightly loose stool this morning though but no vomiting. EXAMINATION: Blood pressure is 100/57, pulse of 60, temperature 97.1. She is 97% on 2 L nasal cannula. General description is an elderly female lying in bed in no distress. Respiratory system: Unlabored breathing. Clear to auscultation anteriorly. Heart S1, S2. Regular rate and rhythm. Abdomen soft, no tenderness. LABS: Hemoglobin 11.9, white of 9.8. BUN of 8, creatinine 0.77. DIAGNOSTIC IMPRESSION AND PLAN: Patient with acute gastroenteritis, questionably food poisoning versus viral or bacterial, overall improvement on Rocephin and Flagyl with no resistant bacteria. Plan to finish therapy with oral Flagyl for about a week. Continue supportive care. MMODL / IJN: [id number] /
--- NOTE | 2017-11-07 23:47 | P.DS ---
Providers Date of admission: 11/04/17 21:19 Attending physician: Blair Perkins Consults: 11/04/17 12:54 Consult Physician Routine Consulting Provider: Giulia Patel Consult Reason/Comments: infection Do you want consulting provider notified?: Yes Primary care physician: Ora Ramon [facility] Course: Ms. Keen is a 67-year-old female with a past medical history of CKD, P due to insufficiency admitted to the hospital with a chief complaint of nausea vomiting or diarrhea. She is currently being treated for acute gastroenteritis with IV antibiotics in the form of Flagyl and ceftriaxone. Patient is clinically improving and states that her nausea and vomiting is better. Today she is lying in bed appears to be no acute distress no acute overnight issues. Patient was found to have a low potassium at 3.1 this morning will replace the progression and discharge her home. She is advised to complete the 5 day course of Flagyl and follow up with her PCP in 3-4 days. DISCHARGE DIAGNOSIS Acute gastroenteritis Acute on chronic kidney injury CK D stage III History of pituitary insufficiency History of MRSA infection History of asthma and COPD Moderate protein calorie malnutrition Patient Condition at Discharge: Stable Plan - Discharge Summary Discharge Rx Participant: No New Discharge Prescriptions: New metroNIDAZOLE [Flagyl] 500 mg PO Q8HR #15 tab No Action Nitroglycerin Sl Tabs [Nitrostat] 0.4 mg SUBLINGUAL Q5M PRN PRN Reason: Chest Pain Fluticasone/Salmeterol [Advair 500-50 Diskus] 1 inhalation PO RT-BID Multivitamins, Thera [Multivitamin (formulary)] 1 tab PO DAILY Metoprolol Tartrate 12.5 mg PO HS Calcium Carbonate/Vitamin D3 [Caltrate 600 Plus D3 Tablet] 2 tab PO DAILY Montelukast [Singulair] 10 mg PO HS ALPRAZolam [Xanax] 0.5 mg PO BID PRN PRN Reason: Anxiety Oxybutynin Chloride 5 mg PO BID Hydrocortisone [Cortef] 10 mg PO BID Furosemide [Lasix] 40 mg PO DAILY Potassium Chloride [Klor-Con 20] 20 meq PO DAILY Omeprazole 20 mg PO DAILY Aspirin 81 mg PO DAILY Omalizumab [Xolair] 150 mg SQ Q14D Levothyroxine Sodium [Synthroid] 75 mcg PO DAILY Albuterol Nebulized [Ventolin Nebulized] 1 neb INHALATION BID Discharge Medication List ALPRAZolam [Xanax] 0.5 mg PO BID PRN 01/06/16 [History] Aspirin 81 mg PO DAILY 01/06/16 [History] Calcium Carbonate/Vitamin D3 [Caltrate 600 Plus D3 Tablet] 2 tab PO DAILY [History] Fluticasone/Salmeterol [Advair 500-50 Diskus] 1 inhalation PO RT-BID 01/06/16 [ History] Furosemide [Lasix] 40 mg PO DAILY 01/06/16 [History] Hydrocortisone [Cortef] 10 mg PO BID 01/06/16 [History] Metoprolol Tartrate 12.5 mg PO HS 01/06/16 [History] Montelukast [Singulair] 10 mg PO HS 01/06/16 [History] Multivitamins, Thera [Multivitamin (formulary)] 1 tab PO DAILY 01/06/16 [History ] Nitroglycerin Sl Tabs [Nitrostat] 0.4 mg SUBLINGUAL Q5M PRN 01/06/16 [History] Omalizumab [Xolair] 150 mg SQ Q14D 01/06/16 [History] Omeprazole 20 mg PO DAILY 01/06/16 [History] Oxybutynin Chloride 5 mg PO BID 01/06/16 [History] Potassium Chloride [Klor-Con 20] 20 meq PO DAILY 01/06/16 [History] Levothyroxine Sodium [Synthroid] 75 mcg PO DAILY 11/03/17 [History] Albuterol Nebulized [Ventolin Nebulized] 1 neb INHALATION BID 11/05/17 [History] metroNIDAZOLE [Flagyl] 500 mg PO Q8HR #15 tab 11/06/17 [Rx] Follow up Appointment(s)/Referral(s): Ora Ramon MD [Primary Care Provider] - 1-2 days [facility] Visiting Nurse, [NON-STAFF] - Patient Instructions/Handouts: Gastroenteritis (DC)
--- NOTE | 2017-11-13 13:32 | CDI ---
Documentation Clarification Form Date: 11/13/2017 12:00:00 AM From: April Baker Phone: If you have question, contact Jenna Hamptonmegan, Director Of Undergraduate Admissions at Admit Date: 11/04/2017 9:19:00 PM Patient Name: Azul Laughlin Visit Number: [id number] Discharge Date: 11/07/17 ATTENTION: The Clinical Documentation Specialists (CDI) and [facility] Coding Staff appreciate your assistance in clarifying documentation. Please respond to the clarification below the line at the bottom and electronically sign. The CDI & [facility] Coding staff will review the response and follow-up if needed. Please note: Queries are made part of the Legal Health Record. If you have any questions, please contact the author of this message via ITS. Dr. Majo Duarte Ms Laughlin was admitted with Moderate protein calorie malnutrition is documented in the discharge summary. Labs: Total protein is noted to be as low as 5.0 and albumin is noted to be as low as 2.8 Dietary was not consulted and a specific plan of treatment indicated. Please clarify if you can confirm this diagnosis of moderate protein calorie malnutrition or if this condition was documented in error in your query response. Thank you for your time. MTDD
== END 2017-11-07 13:25 | disposition home health service (06) | DRG 392 ==
LOC: EC 16:42 → 4MS4W 21:13 → OBSVTOIN 11-04 21:19
PROVIDERS: ADMIT Internal Medicine; ATTEND Internal Medicine
DX: K52.9 Noninfective gastroenteritis and colitis, unspecified (principal); N17.9 Acute kidney failure, unspecified; E44.0 Moderate protein-calorie malnutrition; N18.3 Chronic kidney disease, stage 3 (moderate); E86.0 Dehydration; F41.9 Anxiety disorder, unspecified; I25.10 Atherosclerotic heart disease of native coronary artery without angina pectoris; J44.9 Chronic obstructive pulmonary disease, unspecified; H54.3 Unqualified visual loss, both eyes; Z79.82 Long term (current) use of aspirin; Z79.899 Other long term (current) drug therapy; Z79.890 Hormone replacement therapy; Z88.6 Allergy status to analgesic agent; Z88.5 Allergy status to narcotic agent; Z88.1 Allergy status to other antibiotic agents; Z88.8 Allergy status to other drugs, medicaments and biological substances; Z87.891 Personal history of nicotine dependence; Z86.14 Personal history of Methicillin resistant Staphylococcus aureus infection; Z90.49 Acquired absence of other specified parts of digestive tract; Z98.890 Other specified postprocedural states; Z82.49 Family history of ischemic heart disease and other diseases of the circulatory system; Z82.5 Family history of asthma and other chronic lower respiratory diseases; Z90.710 Acquired absence of both cervix and uterus; I25.2 Old myocardial infarction; Z95.5 Presence of coronary angioplasty implant and graft; Z79.51 Long term (current) use of inhaled steroids; Z98.51 Tubal ligation status
CPT/HCPCS: 36415; 74018; 80053; 80074; 81003; 82150; 82533; 82550; 83690; 85025; 87040; 87045; 87046; 87086; 87324; 87502; 89055; 94640; 96361; 96374; 99285

== ENCOUNTER → 2020-05-20 | Outpatient (CLI) | payer MEDICARE ==
--- NOTE | 2020-05-20 20:01 | CONS ---
CONSULTATION REASON FOR CONSULTATION: Nocturnal hallucinations. This is a very pleasant 69-year-old female patient who was referred to me for an ongoing problem of visual hallucinations that the patient has been experiencing for the past 8 months. Note that prior to that the patient had no issues with any form of visual hallucinations. The patient underwent pituitary tumor surgery back in 2007. Currently she is on thyroid hormone replacement and hydrocortisone replacement. 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 She also has chronic anxiety and she was receiving Xanax that was recently replaced by her primary care physician with Zoloft 50 mg p.o. daily. She is known to have coronary artery disease with previous coronary stenting and COPD/asthma. In terms of her hallucinations, these are essentially visual hallucinations that are occurring at nighttime. They seem to be hypnopompic hallucinations, as the patient claims to have these hallucinations when she wakes up. She sees people who are walking around in the room. At other times she sees people lying there with her. These individuals or these visual images do not talk, and she does not have any form of auditory hallucinations. Note that she has been also heard to talk on a few occasions while having these hallucinations. This has been recognized by family members. The patient herself has no recollections. No history of any sleep paralysis. No history of any cataplexy. No history of any narcolepsy. No history of any seizure disorder. No history of any dementia. The patient does not have any memory or cognitive impairment. The patient does not have any movement disorder to indicate Parkinson's disease. No history of alcoholism. No history of substance abuse. No history of head trauma. No history of any snoring. She does have a component of insomnia, and it takes her sometimes up to one hour to fall asleep. She goes to bed between 8 and 10 p.m., wakes up between 6 and 8 a.m. in the morning. She is averaging somewhere between 5 and 7 hours of sleep. 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 She drinks around 3 to 5 glasses of caffeinated beverages/coffee on a daily basis. No recent weight gain. She has no television or radio in her bedroom environment. She sleeps on her side, and she prefers that position. She does not take any form of naps during the day. No further impairment in her vision. No memory problems or any cognitive issues. No psychosis. No schizophrenia. No schizoaffective disorder. Her anxiety levels have also been stable at this point in time. PAST MEDICAL HISTORY: 1. Pituitary tumor, status post resection. 2. Coronary artery disease with previous coronary stenting. 3. COPD. 4. Bronchial asthma. 5. Hypothyroidism, currently on replacement. PAST SURGICAL HISTORY: Past surgical history includes a combination of surgeries, and these include tonsillectomy and adenectomy, appendectomy, exploratory laparotomy, hysterectomy, bladder suspension surgery, cholecystectomy, resection of a vaginal cyst, 3 foot surgeries, carpal tunnel in both hands, surgery for a broken wrist with insertion of a pin and plates, trigger finger surgery, brain tumor surgery for a pituitary adenoma in 2007, excision and drainage of an MRSA skin infection on the forehead, surgery for an artificial cap in the forehead and cardiac catheterization and insertion of coronary stent and insertion of a defibrillator. She has also undergone left eye cataract surgery in 2012, breast biopsy, and she has had 2 full pregnancies. SOCIAL HISTORY: No smoking for now. No history of alcoholism. No history of IV drugs. No history of any substance abuse. OUTPATIENT MEDICATION LIST: Outpatient medication list includes: 1. Hydrocortisone 10 mg twice a day. 2. Potassium 20 mEq once a day. 3. Lasix 40 mg p.o. daily. 4. Oxybutynin 5 mg twice a day. 5. Singulair 10 mg p.o. daily. 6. Aspirin 81 mg p.o. daily. 7. Synthroid 112 mcg p.o. daily. 8. Xanax has been discontinued. 9. Metoprolol 25 mg half tablet a day. 10.Omeprazole 20 mg one tablet a day. 11.Albuterol HFA on a p.r.n. basis. 12.Advair Diskus 500/50 one puff twice a day. 13.Calcium with vitamin D supplement. 14.Multivitamin. 15.Nitroglycerin. 16.Zoloft 50 mg p.o. daily. FAMILY HISTORY: Negative; noncontributory to above presentation. REVIEW OF SYSTEMS: Fourteen-point review of systems was done. Positive findings are all mentioned in the history of present illness. PHYSICAL EXAMINATION: VITAL SIGNS: BP is 131/77, pulse 88, respirations 16, temperature 97.7, saturation 96% on room air. Height is 5 feet 3 inches. Weight is 134, BMI 23.3. Neck size 14 inches. GENERAL APPEARANCE: Calm, comfortable. No acute distress. HEAD: Atraumatic, normocephalic. NECK: Supple. No JVD. No goiter or neck masses. LUNGS: Clear to auscultation. HEART: Heart sounds are regular rate and rhythm. Normal S1, S2. No S3, S4. No murmurs. ABDOMEN: Soft, nontender. No organomegaly. EXTREMITIES: No edema. No cyanosis or clubbing at this point in time. 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 The exact etiology is not clear. There is a broad variety of potential etiologies that can cause visual hallucination. My concern is that the patient has undergone previous brain surgery/pituitary surgery, and her pituitary surgery has caused significant amount of visual impairment, and vision impairment by itself has been associated with visual hallucinations, especially if they are also accompanied by other symptoms of pre-existing dementia, cognitive impairment. Unlikely for this patient to be having seizures based on the reported history. Other possibilities such as schizophrenia and schizoaffective disorder are felt to be less likely, as my encounter with the patient today in the office did not reveal or indicate any form of psychiatric disorder. Dementia of an Alzheimer's type or dementia with Lewy bodies and Parkinson's disease may cause this type of visual hallucination, and again this does not seem to be the case in this situation. Recurrent tumors of the brain need to be considered, as tumors of the brain can cause new-onset visual hallucinations. No indication of any drug effects. No indication for delirium or psychosis. Note that her symptoms are associated with some degree of insomnia, also. PLAN: Effective treatment of visual hallucinations at nighttime is dependent on the underlying cause. I think the patient's anxiety levels are low and probably not contributing to her symptoms. I do not see the role for any form of benzodiazepines at this point. No clear indication for any psychiatric disorder, delirium, psychosis. Will give the patient a trial of low-dose neuroleptic medications such as Seroquel, and I would suggest starting the patient on a 50 mg low dose, as previous evidence has showed that this medication can cause adequate control of hallucinations and at the same time be safe and efficacious. This will be given on a trial basis. Meanwhile, if the symptoms continue, it will be useful to get a CT scan of the brain and get a neurologic evaluation, including EEG, to make sure there is no other organic brain disorder contributing to her symptoms. I do not see the need for a sleep study. I gave the patient 30 days' worth of Seroquel 50 mg with refills, and she will see me back during this time to make final recommendations. MMKUNAL / IJN: [id number] /
== END | disposition home or self-care (01) ==
LOC: SLEEP 11:43
PROVIDERS: ATTEND Internal Medicine Critical Care Medicine
DX: G47.00 Insomnia, unspecified (principal); R44.1 Visual hallucinations; H54.7 Unspecified visual loss; R56.9 Unspecified convulsions; G30.9 Alzheimer's disease, unspecified; G20 Parkinson's disease; F02.80 Dementia in other diseases classified elsewhere, unspecified severity, without behavioral disturbance, psychotic disturbance, mood disturbance, and anxiety; Z79.51 Long term (current) use of inhaled steroids; Z79.52 Long term (current) use of systemic steroids; Z79.899 Other long term (current) drug therapy; Z79.82 Long term (current) use of aspirin
CPT/HCPCS: 99211

== ENCOUNTER → 2020-07-01 | Outpatient (CLI) | payer MEDICARE ==
--- NOTE | 2020-07-01 14:40 | PN ---
PROGRESS NOTE Azul is 69 and she is coming in for a followup. I saw this patient in consultation for nocturnal hallucinations. Please refer to my detailed note regarding this patient's symptoms of hallucination. Note that the patient has undergone a previous history of pituitary tumor resection. She is also known to have coronary artery disease, COPD/asthma and hypothyroidism. I started this patient on a low-dose Seroquel 50 mg at bedtime. This was given to her screening for symptoms of visual hallucinations at nighttime and this resulted in adequate control of her symptoms. For now, her visual hallucinations has near completely eliminated and resolved. She is waking up alert and refreshed during the day. She is going to bed around 9 p.m. and waking up 7 a.m. in the morning, averaging around 10 hours of sleep. No side effects related to medication. No agitation. No memory impairment. No cognitive impairment. No seizure activity. Her medications otherwise remain the same. PHYSICAL EXAMINATION: VITAL SIGNS: BP is 98/59, pulse is 88, respirations 18, temperature 97.1, saturation 98% on room air. Height is 5 feet 3 inches. Weight is 134. [place] score is 4, BMI 23.7. GENERAL APPEARANCE: Calm, comfortable. HEAD: Atraumatic, normocephalic. NECK: Supple. No JVD. No goiter or neck masses. LUNGS: Clear to auscultation. HEART: Heart sounds are regular rate and rhythm. Normal S1, S2. No S3. No murmur. ABDOMEN: Soft, nontender. No organomegaly. EXTREMITIES: No edema. No cyanosis or clubbing. NEUROLOGIC: The patient is awake and alert and there is no reported focal neurological deficit. IMPRESSION: Visual hallucination was treated with Seroquel. The patient is having nocturnal visual hallucination hypnopompic. May be a result of her previous brain surgery as the patient has undergone a previous pituitary surgery that can potentially cause visual impairment. No indication for any underlying dementia or cognitive dysfunction. No indication for any underlying psychosis with delirium. No indication for underlying dementia of Lewy bodies or Parkinson disease. PLAN: 1. The patient is responding very well with Seroquel. 2. Continue Seroquel low-dose 50 mg p.o. at bedtime. 3. Maintaining good sleep hygiene measures. 4. The patient will be referred back to her primary care physician who can periodically refill her medication. 5. I would suggest staying on Seroquel for now as the patient's sleep has improved and her visual hallucinations have completely subsided. MMRUBIAL / VASHTIN: [id number] /
== END | disposition home or self-care (01) ==
LOC: SLEEP 13:19
PROVIDERS: ATTEND Internal Medicine Critical Care Medicine
DX: R44.1 Visual hallucinations (principal); R44.2 Other hallucinations; Z99.89 Dependence on other enabling machines and devices

== ENCOUNTER 2021-10-22 17:15 | Inpatient (IN) | payer MEDICARE ==
[2021-10-22] MEDS ORDERED: MORPHINE SULFATE 4 MG/ML SYRINGE IV STA (18:42)
[2021-10-22] MEDS ORDERED: ONDANSETRON 4 MG/2 ML VIAL IVP STA (18:42)
--- NOTE | 2021-10-22 18:48 | ED ---
SOB HPI - General Chief Complaint: Shortness of Breath Stated Complaint: Back pain Time Seen by Provider: 10/22/21 18:34 Source: patient, RN notes reviewed Mode of arrival: wheelchair Limitations: no limitations - History of Present Illness Initial Comments: This is a pleasant 70-year-old female with a history of asthma, COPD, emphysema, myocardial infarction. Patient also has a history of congestive heart failure. Patient presents to the emergency room today with worsening pain to her upper back area. Patient states that she has a T8 compression fracture which was found on a recent admission. Patient also has increased work of breathing which she is actually relating to the pain. However patient has had several admissions for difficulty breathing secondary to CHF and COPD. She was just admitted to [facility] last week and was released on Tuesday after a 5 day stay. It was the daughter's understanding that she would go to rehabilitation because she cannot take care of her at home with the back injury. Patient cannot tolerate the pain despite being on [place] 10's every 4 hours.Pain is exacerbated by movement, alleviated by position and rest to some extent. Sharp in nature. Patient has had a nonproductive cough No headache, no fever or chills, no changes in vision or hearing, no sore throat or difficulty with speech, no neck pain, no abdominal pain, no nausea or vomiting, no changes in urination or bowel movements, no numbness or tingling, no extremity pain, no skin rashes or lesions. MD Complaint: shortness of breath - Related Data Home Medications Medication Instructions Recorded Confirmed Aspirin 81 mg PO DAILY 01/06/16 10/22/21 Furosemide [Lasix] 40 mg PO DAILY 01/06/16 10/22/21 Hydrocortisone [Cortef] 15 mg PO W/BRKFST 01/06/16 10/22/21 Metoprolol Tartrate 12.5 mg PO HS 01/06/16 10/22/21 Montelukast [Singulair] 10 mg PO HS 01/06/16 10/22/21 Multivitamins, Thera [Multivitamin 1 tab PO DAILY 01/06/16 10/22/21 (formulary)] Nitroglycerin Sl Tabs [Nitrostat] 0.4 mg SUBLINGUAL Q5M PRN 01/06/16 10/22/21 Omeprazole 20 mg PO DAILY 01/06/16 10/22/21 Oxybutynin Chloride 5 mg PO BID 01/06/16 10/22/21 Potassium Chloride [Klor-Con 20] 20 meq PO DAILY 01/06/16 10/22/21 Albuterol Nebulized [Ventolin 2.5 mg INHALATION RT-QID 11/05/17 10/22/21 Nebulized] Apixaban [Eliquis] 5 mg PO BID 10/22/21 10/22/21 Baclofen 10 mg PO TID PRN 10/22/21 10/22/21 Budesonide [Pulmicort] 0.5 mg INHALATION RT-BID 10/22/21 10/22/21 Cholecalciferol [Vitamin D3 (25 50 mcg PO DAILY 10/22/21 10/22/21 Mcg = 1000 Iu)] HYDROcodone/APAP 10-325MG [[place] 1 tab PO Q4HR PRN 10/22/21 10/22/21 10-325] Hydrocortisone [Cortef] 5 mg PO W/LUNCH 10/22/21 10/22/21 Levothyroxine Sodium [Synthroid] 112 mcg PO DAILY 10/22/21 10/22/21 Loratadine [Claritin] 10 mg PO HS 10/22/21 10/22/21 QUEtiapine [SEROquel] 50 mg PO HS 10/22/21 10/22/21 Sertraline [Zoloft] 100 mg PO DAILY 10/22/21 10/22/21 Allergies Allergy/AdvReac Type Severity Reaction Status Date / Time codeine Allergy Rash/Hives, Verified 10/22/21 21:09 N/V ibuprofen Allergy Anaphylaxis Verified 10/22/21 21:09 lisinopril Allergy Rash/Hives Verified 10/22/21 21:09 naproxen [From Naprosyn] Allergy Anaphylaxis Verified 10/22/21 21:09 streptomycin Allergy Anaphylaxis Verified 10/22/21 21:09 alendronate sodium AdvReac Nausea & Verified 10/22/21 21:09 [From Fosamax] Vomiting Review of Systems ROS Statement: Those systems with pertinent positive or pertinent negative responses have been documented in the HPI. ROS Other: All systems not noted in ROS Statement are negative. Past Medical History Past Medical History: Asthma, COPD, Myocardial Infarction ([place]) Additional Past Medical History / Comment(s): See [facility]'s H&P,uses O2 @ 2 liters NC,urine incont.,daily steroid,pituitary tumor,blind rt eye,loss peripheral vision lt eye Last Myocardial Infarction Date:: 2012 History of Any Multi-Drug Resistant Organisms: MRSA Date of last positivie culture/infection: 2008 MDRO Source:: rt forehead Past Surgical History: Adenoidectomy, Appendectomy, Bladder Surgery, Cholecystectomy, Heart Catheterization With Stent, Hysterectomy, Orthopedic Surgery, Tonsillectomy, Tubal Ligation Additional Past Surgical History / Comment(s): brain surg to remove pituitary tumor,expl lap,vaginal cyst removed,bladder susp,carpel tunnel joseph hands,surg lt foot x3,rt forehead bone removed due to mrsa, artificial cap placed to rt forehead,screws and plate remove from skull,lt cataract,lt breast bx,heart sten ts x2, defibulator placed 01-08-16 Past Anesthesia/Blood Transfusion Reactions: Postoperative Nausea & Vomiting (PONV) Additional Past Anesthesia/Blood Transfusion Reaction / Comment(s): no hx blood transfusion Date of Last Stent Placement:: 09-01-2012 Past Psychological History: Anxiety Smoking Status: Former smoker Past Alcohol Use History: None Reported Past Drug Use History: None Reported - Past Family History Mother Family Medical History: Cancer Additional Family Medical History / Comment(s): ovarian Father Family Medical History: COPD Additional Family Medical History / Comment(s): heart problems,emphysema Brother(s) Additional Family Medical History / Comment(s): cabg-4 vessels Sister(s) Family Medical History: Cancer Additional Family Medical History / Comment(s): kidney General Exam - General Exam Comments Initial Comments: Female in moderate distress secondary to shortness of breath and upper back pain. Limitations: no limitations General appearance: alert, in distress Head exam: Present: atraumatic, normocephalic, normal inspection Eye exam: Present: normal appearance, PERRL, EOMI. Absent: scleral icterus, conjunctival injection, periorbital swelling ENT exam: Present: normal exam, normal oropharynx, mucous membranes moist, normal external ear exam Neck exam: Present: normal inspection, full ROM. Absent: tenderness, meningismus, lymphadenopathy Respiratory exam: Present: respiratory distress, chest wall tenderness (Posteri or thoracic area, especially over the T8 area. No break in skin integrity. No erythema. No rash or lesion.), accessory muscle use. Absent: wheezes, rales, rhonchi, stridor Cardiovascular Exam: Present: regular rate, normal rhythm, normal heart sounds. Absent: systolic murmur, diastolic murmur, rubs, gallop, clicks GI/Abdominal exam: Present: soft, normal bowel sounds. Absent: distended, tenderness, guarding, rebound, rigid Extremities exam: Present: normal inspection, full ROM, normal capillary refill. Absent: tenderness, pedal edema, joint swelling, calf tenderness Back exam: Present: normal inspection, tenderness, paraspinal tenderness, vertebral tenderness. Absent: full ROM, CVA tenderness (R), CVA tenderness (L), muscle spasm, rash noted Neurological exam: Present: alert, oriented X3, CN II-XII intact Psychiatric exam: Present: normal affect, normal mood Skin exam: Present: warm, dry, intact, normal color. Absent: rash, cyanosis, diaphoretic, erythema, urticaria, vesicles Course Vital Signs 10/22/21 10/22/21 10/22/21 17:22 20:07 22:48 Temperature 97.5 F L Pulse Rate 108 H 89 102 H Respiratory 22 Rate Blood Pressure 133/76 116/66 119/75 O2 Sat by Pulse 94 L 95 95 Oximetry 10/22/21 10/22/21 23:25 23:30 Temperature Pulse Rate 88 88 Respiratory Rate Blood Pressure O2 Sat by Pulse Oximetry - Consultations Consultation #1: Case discussed with [facility] physician group. However, patient was deemed to be consistent with severe sepsis. Case discussed with Michelle from [facility] hospitalist group. She accepted admission. Procedures - Sepsis Sepsis Focused Exam #1 Time Sepsis Criteria Met: 20:41 Sepsis Focused Exam Date: 10/22/21 Sepsis Focused Exam Time: 21:47 Sepsis Focused Exam Complete: Yes Vital Signs & RN Notes Reviewed: Yes Capillary Refill: < 2 Seconds: Fingers, Toes Peripheral Pulses: Strong: Radial (R), Radial (L), Posterior Tibialis (R), Posterior Tibialis (L), Dorsalis Pedis (R), Dorsalis Pedis (L) Skin Color: Normal for Patient Respiratory Exam: rhonchi Cardiovascular Exam: tachycardia Sepsis Focused Exam #2 Sepsis Focused Exam Date: 10/23/21 Sepsis Focused Exam Time: 00:30 Sepsis Focused Exam Complete: Yes (Note that the patient's lactic acid was 2.7 on recheck. Patient never had ) Vital Signs & RN Notes Reviewed: Yes Capillary Refill: > 2 Seconds: Fingers, Toes Peripheral Pulses: Strong: Radial (R), Radial (L), Posterior Tibialis (R), Posterior Tibialis (L), Dorsalis Pedis (R), Dorsalis Pedis (L) Skin Color: Normal for Patient Respiratory Exam: normal lung sounds Cardiovascular Exam: tachycardia Medical Decision Making - Medical Decision Making Patient presents complaining of back pain which is going on about 2 weeks secondary to T8 compression fracture. Pain is sharp and located in the back, Zestril and movement. Also has increasing shortness of breath which is recurrent due to her COPD and CHF history. The case was discussed in detail with ED attending physician. Presentation, findings, treatment plan discussed in detail. Patient admitted to [facility] - Lab Data Result diagrams: 10/22/21 18:41 10/22/21 18:41 Lab Results 10/22/21 10/22/21 10/22/21 Range/Units 18:41 18:41 18:41 WBC 14.3 H (3.8-10.6) k/uL RBC 4.64 (3.80-5.40) m/uL Hgb 14.5 (11.4-16.0) gm/dL Hct 44.6 (34.0-46.0) % MCV 96.2 (80.0-100.0) fL MCH 31.3 (25.0-35.0) pg MCHC 32.5 (31.0-37.0) g/dL RDW 14.0 (11.5-15.5) % Plt Count 203 (150-450) k/uL MPV 8.4 Neutrophils % 88 % Lymphocytes % 6 % Monocytes % 4 % Eosinophils % 1 % Basophils % 1 % Neutrophils # 12.6 H (1.3-7.7) k/uL Lymphocytes # 0.8 L (1.0-4.8) k/uL Monocytes # 0.5 (0-1.0) k/uL Eosinophils # 0.2 (0-0.7) k/uL Basophils # 0.2 (0-0.2) k/uL PT 11.3 (9.0-12.0) sec INR 1.0 (<1.2) APTT 26.3 (22.0-30.0) sec Sodium 138 (137-145) mmol/L Potassium (3.5-5.1) mmol/L Chloride 107 (98-107) mmol/L Carbon Dioxide 24 (22-30) mmol/L Anion Gap 7 mmol/L BUN 18 H (7-17) mg/dL Creatinine 1.25 H (0.52-1.04) mg/dL Est GFR (CKD-EPI)AfAm 50 (>60 ml/min/1.73 sqM) Est GFR (CKD-EPI)NonAf 43 (>60 ml/min/1.73 sqM) Glucose 137 H (74-99) mg/dL Lactic Ac Sepsis Rflx Plasma Lactic Acid Saravanan (0.7-2.0) mmol/L Calcium 8.1 L (8.4-10.2) mg/dL Magnesium 2.5 H (1.6-2.3) mg/dL Total Bilirubin 1.2 (0.2-1.3) mg/dL AST 59 H (14-36) U/L ALT 38 H (4-34) U/L Alkaline Phosphatase 124 (38-126) U/L Troponin I (0.000-0.034) ng/mL C-Reactive Protein (<1.0) mg/dL NT-Pro-B Natriuret Pep pg/mL Total Protein 6.9 (6.3-8.2) g/dL Albumin 3.7 (3.5-5.0) g/dL Coronavirus (PCR) (Not Detectd) 10/22/21 10/22/21 10/22/21 Range/Units 18:41 18:41 19:22 WBC (3.8-10.6) k/uL RBC (3.80-5.40) m/uL Hgb (11.4-16.0) gm/dL Hct (34.0-46.0) % MCV (80.0-100.0) fL MCH (25.0-35.0) pg MCHC (31.0-37.0) g/dL RDW (11.5-15.5) % Plt Count (150-450) k/uL MPV Neutrophils % % Lymphocytes % % Monocytes % % Eosinophils % % Basophils % % Neutrophils # (1.3-7.7) k/uL Lymphocytes # (1.0-4.8) k/uL Monocytes # (0-1.0) k/uL Eosinophils # (0-0.7) k/uL Basophils # (0-0.2) k/uL PT (9.0-12.0) sec INR (<1.2) APTT (22.0-30.0) sec Sodium (137-145) mmol/L Potassium (3.5-5.1) mmol/L Chloride (98-107) mmol/L Carbon Dioxide (22-30) mmol/L Anion Gap mmol/L BUN (7-17) mg/dL Creatinine (0.52-1.04) mg/dL Est GFR (CKD-EPI)AfAm (>60 ml/min/1.73 sqM) Est GFR (CKD-EPI)NonAf (>60 ml/min/1.73 sqM) Glucose (74-99) mg/dL Lactic Ac Sepsis Rflx Plasma Lactic Acid Saravanan (0.7-2.0) mmol/L Calcium (8.4-10.2) mg/dL Magnesium (1.6-2.3) mg/dL Total Bilirubin (0.2-1.3) mg/dL AST (14-36) U/L ALT (4-34) U/L Alkaline Phosphatase (38-126) U/L Troponin I <0.012 (0.000-0.034) ng/mL C-Reactive Protein (<1.0) mg/dL NT-Pro-B Natriuret Pep 890 pg/mL Total Protein (6.3-8.2) g/dL Albumin (3.5-5.0) g/dL Coronavirus (PCR) Not Detected (Not Detectd) 10/22/21 10/22/21 10/22/21 Range/Units 20:20 20:54 21:33 WBC (3.8-10.6) k/uL RBC (3.80-5.40) m/uL Hgb (11.4-16.0) gm/dL Hct (34.0-46.0) % MCV (80.0-100.0) fL MCH (25.0-35.0) pg MCHC (31.0-37.0) g/dL RDW (11.5-15.5) % Plt Count (150-450) k/uL MPV Neutrophils % % Lymphocytes % % Monocytes % % Eosinophils % % Basophils % % Neutrophils # (1.3-7.7) k/uL Lymphocytes # (1.0-4.8) k/uL Monocytes # (0-1.0) k/uL Eosinophils # (0-0.7) k/uL Basophils # (0-0.2) k/uL PT (9.0-12.0) sec INR (<1.2) APTT (22.0-30.0) sec Sodium (137-145) mmol/L Potassium (3.5-5.1) mmol/L Chloride (98-107) mmol/L Carbon Dioxide (22-30) mmol/L Anion Gap mmol/L BUN (7-17) mg/dL Creatinine (0.52-1.04) mg/dL Est GFR (CKD-EPI)AfAm (>60 ml/min/1.73 sqM) Est GFR (CKD-EPI)NonAf (>60 ml/min/1.73 sqM) Glucose (74-99) mg/dL Lactic Ac Sepsis Rflx Y Plasma Lactic Acid Saravnaan 2.4 H* (0.7-2.0) mmol/L Calcium (8.4-10.2) mg/dL Magnesium (1.6-2.3) mg/dL Total Bilirubin (0.2-1.3) mg/dL AST (14-36) U/L ALT (4-34) U/L Alkaline Phosphatase (38-126) U/L Troponin I (0.000-0.034) ng/mL C-Reactive Protein 15.6 H (<1.0) mg/dL NT-Pro-B Natriuret Pep pg/mL Total Protein (6.3-8.2) g/dL Albumin (3.5-5.0) g/dL Coronavirus (PCR) (Not Detectd) - EKG Data -: EKG Interpreted by Me (As well as ED attending physician) EKG shows normal: sinus rhythm, axis (Left axis deviation), intervals (Normal intervals), QRS complexes (Left anterior fascicular block), ST-T waves (No acute changes) Rate: tachycardia EKG Comments: No comparison study Critical Care Time Critical Care Time: Yes Total Critical Care Time: 32 Critical Care Time: Reevaluation of patient. Reassessment. Assessment of the patient's response to treatment. Evaluation and diagnostic testing. Sepsis criteria. Disposition Clinical Impression: Left lower lobe pneumonia, Thoracic compression fracture, Intractable back pain, Lumbar compression fracture, Severe sepsis Narrative: Back pain with thoracic compression fracture, T8, by history, intractable back pain Disposition: ADMITTED IP TO THIS [facility] Time of Disposition: 20:11 Decision to Admit Reason: Admit from EC Decision Time: 20:11
[2021-10-22 19:06] LABS: Basophils # (A) 0.2 k/uL (0-0.2); Basophils % (A) 1 %; Eosinophils # (A) 0.2 k/uL (0-0.7); Eosinophils % (A) 1 %; HCT 44.6 % (34.0-46.0); HGB 14.5 gm/dL (11.4-16.0); Lymphocytes # (A) 0.8 k/uL (1.0-4.8); Lymphocytes % (A) 6 %; MCH 31.3 pg (25.0-35.0); MCHC 32.5 g/dL (31.0-37.0); MCV 96.2 fL (80.0-100.0); Mean Platelet Volume 8.4; Monocytes # (A) 0.5 k/uL (0-1.0); Monocytes % (A) 4 %; Neutrophils # (A) 12.6 k/uL (1.3-7.7); Neutrophils % (A) 88 %; Platelet Count 203 k/uL (150-450); RBC 4.64 m/uL (3.80-5.40); WBC 14.3 k/uL (3.8-10.6)
[2021-10-22 19:13] LABS: Albumin 3.7 g/dL (3.5-5.0); Calcium 8.1 mg/dL (8.4-10.2); Total Bilirubin 1.2 mg/dL (0.2-1.3); Total Protein 6.9 g/dL (6.3-8.2)
[2021-10-22 19:15] LABS: Partial Thromboplastin Time 26.3 sec (22.0-30.0); Prothrombin Time 11.3 sec (9.0-12.0)
[2021-10-22 19:31] LABS: Magnesium 2.5 mg/dL (1.6-2.3)
[2021-10-22] MEDS ORDERED: HYDROmorphone 0.5 MG/0.5 ML SYRINGE IVP STA (20:01)
--- NOTE | 2021-10-22 20:05 | XR ---
EXAMINATION TYPE: XR chest 2V DATE OF EXAM: 10/22/2021 7:46 PM COMPARISON:Chest radiographs from 01/09/2016 TECHNIQUE: XR chest 2V Frontal and lateral views of the chest. CLINICAL INDICATION:Female, 70 years old with history of difficulty breathing; FINDINGS: Lungs/Pleura: Hazy opacities within the left lung base are new from prior. There is increased lucency within the upper lungs. No evidence of pleural effusion or pneumothorax. Pulmonary vascularity: Unremarkable. Heart/mediastinum: Cardiomediastinal silhouette is unremarkable. Musculoskeletal: No acute osseous pathology. IMPRESSION: 1. Hazy opacities within left lung base are new from prior may represent atelectasis and/or evolving airspace disease. 2. COPD changes.
[2021-10-22] MEDS ORDERED: SODIUM CHLORIDE 0.9% 500 ML 500 ML IV STA (20:06)
[2021-10-22] MEDS ORDERED: AZITHROMYCIN 500 MG in SODIUM CHLORIDE 0.9% 250 ML IVPB STA (20:07)
[2021-10-22] MEDS ORDERED: PNEUMONIA PROTOCOL UTILIZED 1 EACH MISC PO PRN (20:07)
--- NOTE | 2021-10-22 21:26 | CT ---
EXAMINATION TYPE: CT angio chest CT DLP: 282.9 mGycm, Automated exposure control for dose reduction was used. DATE OF EXAM: 10/22/2021 8:49 PM COMPARISON: Chest radiograph from same day. CLINICAL INDICATION:Female, 70 years old with history of Dyspnea, tachycardia; Chest and back pain. TECHNIQUE/CONTRAST: CTA scan of the thorax is performed with IV Contrast, patient injected with 49ml mL of Isovue 370, pu lmonary embolism protocol. MIP images are created and reviewed. FINDINGS: Pulmonary Artery: There is no evidence for a filling defect within the pulmonary vasculature to sugge st acute pulmonary embolism. The pulmonary artery is of normal size. Lungs/Pleura: Left upper lobe lower consolidation changes superimposed on centrilobular emphysema. Airway: Large airways are patent. Heart: The heart is mildly enlarged for size. Cardiac conduction device with leads terminating in the right ventricle. Vasculature: No evidence of aortic aneurysm. Mild to moderate atherosclerotic disease throughout the arterial vasculature. Mediastinum: No gross evidence of adenopathy. Musculoskeletal:. Multilevel disc degeneration changes throughout the spine with T8 compression defor mity as well as L1 compression deformity with near complete height loss of L1 in at least 70% height loss of T8. Soft Tissues: Unremarkable. Lower neck: No significant findings. Upper Abdomen: The gallbladder is surgically absent. IMPRESSION: 1. No evidence of pulmonary embolism. 2. Consolidation changes within the inferior aspect of the left upper lobe superimposed on emphysema changes, correlate for pneumonia. 3. Compression deformities of T8 and L1 of at least 70% and near complete height loss of L1. These ap pear chronic. Correlation priors would be of benefit.
[2021-10-22] MEDS ORDERED: IPRATROPIUM-ALBUTEROL 3 ML NEB INHALATION STA (21:29)
[2021-10-22] MEDS ORDERED: ACETAMINOPHEN TAB 325 MG TAB PO PRN (22:19)
[2021-10-22] MEDS ORDERED: NALOXONE 0.4 MG/ML 1 ML VIAL IV PRN (22:19)
[2021-10-22] MEDS: SODIUM CHLORIDE 0.9% 1,000 ML IV SCH (22:42)
[2021-10-23] MEDS: HYDROmorphone 1 MG/ML 1 ML SYRINGE IVP PRN ×4 (04:04→17:19)
[2021-10-23 06:12] LABS: Basophils # (A) 0.1 k/uL (0-0.2); Basophils % (A) 1 %; Eosinophils # (A) 0.2 k/uL (0-0.7); Eosinophils % (A) 2 %; HCT 39.9 % (34.0-46.0); HGB 12.3 gm/dL (11.4-16.0); Hypochromasia Slight; Lymphocytes % (A) 18 %; MCH 30.9 pg (25.0-35.0); MCHC 30.8 g/dL (31.0-37.0); MCV 100.3 fL (80.0-100.0); Mean Platelet Volume 8.3; Monocytes # (A) 0.7 k/uL (0-1.0); Monocytes % (A) 6 %; Neutrophils % (A) 71 %; Platelet Count 175 k/uL (150-450); RBC 3.98 m/uL (3.80-5.40); RDW 13.8 % (11.5-15.5); WBC 11.2 k/uL (3.8-10.6)
[2021-10-23 06:29] LABS: Albumin 3.2 g/dL (3.5-5.0); Calcium 7.5 mg/dL (8.4-10.2); Magnesium 2.4 mg/dL (1.6-2.3); Total Bilirubin 0.5 mg/dL (0.2-1.3)
[2021-10-23] MEDS: SODIUM CHLORIDE 0.9% 1,000 ML IV SCH ×2 (07:24→17:15)
--- NOTE | 2021-10-23 08:30 | XR ---
EXAMINATION TYPE: XR chest 2V DATE OF EXAM: 10/23/2021 COMPARISON: 10/22/2021 TECHNIQUE: PA and lateral views submitted. HISTORY: Cough FINDINGS: Cardiac device seen and there is left lower lobe infiltrate and small effusion. Biapical pleural thic kening. There is a coarsened interstitium. Hyperinflation suggests COPD and there is degenerative suki nges of the spine. IMPRESSION: 1. COPD with left lower lobe infiltrate and small effusion stable.
[2021-10-23] MEDS: PANTOPRAZOLE 40 MG/10 ML VIAL IV SCH ×2 (08:38→08:40)
[2021-10-23] MEDS ORDERED: ENOXAPARIN 40 MG/0.4 ML SYRINGE SQ SCH (09:00)
[2021-10-23] MEDS ORDERED: NITROGLYCERIN SL TABS 0.4 MG TAB SUBLINGUAL PRN (09:08)
[2021-10-23] MEDS ORDERED: NON FORMULARY DRUG (Omeprazole [Omeprazole] 20 MG Capsule.Dr) PO SCH (09:15)
[2021-10-23] MEDS: ASPIRIN 81 MG PO SCH (09:29)
[2021-10-23] MEDS: MULTIVITAMINS, THERA 1 EACH TAB PO SCH (09:29)
[2021-10-23] MEDS: APIXABAN 5 MG TAB PO SCH ×2 (09:29→21:28)
[2021-10-23] MEDS: FUROSEMIDE 40 MG TAB PO SCH (09:29)
[2021-10-23] MEDS: CHOLECALCIFEROL 25 MCG (1000 IU) TABLET PO SCH (09:29)
[2021-10-23] MEDS: OXYBUTYNIN CHLORIDE 5 MG TAB PO SCH ×2 (09:29→21:28)
[2021-10-23] MEDS: SERTRALINE 100 MG TAB PO SCH (09:29)
[2021-10-23] MEDS: LEVOTHYROXINE 112 MCG TAB PO SCH (09:29)
[2021-10-23] MEDS: HYDROCORTISONE 10 MG TAB PO SCH ×2 (09:57→12:53)
[2021-10-23] MEDS: HYDROcodone/APAP 10-325MG 1 EACH TAB PO PRN (10:44)
[2021-10-23] MEDS: BACLOFEN 10 MG TAB PO PRN (10:45)
[2021-10-23] MEDS: ALBUTEROL NEBULIZED 2.5 MG/3 ML INHALATION SCH ×3 (11:59→19:33)
--- NOTE | 2021-10-23 14:08 | P.HPIM ---
History of Present Illness H&P Date: 10/23/21 Chief Complaint: Back pain Patient is a 70-year-old female with known history of asthma/COPD, history NC, on home oxygen at 2 L via nasal cannula, history of pituitary tumor status post resection, chronic renal insufficiency, coronary artery disease with history of stent placement, anxiety and appears active smoking and other multiple medical problems came to the ER with complaints of upper back pain. Patient states that she has a T8 compression fracture which was found during recent admission. Due to severe pain patient was also having trouble breathing and and was having shortness of breath due to severe pain. She was recently admitted to [facility] last week and was released after a 5-day stay. Apparently as per her daughter patient is not taking able to take care of herself at home with the back surgery. Patient is on [facility] tens every 4 hourly at home. No complaints of chest pain. No nausea vomiting abdominal pain or diarrhea. No cough or sputum production. Patient has been afebrile. Chest x-ray showed hazy opacities within the left lung base are new from prior may represent atelectasis and evolving airspace disease. COPD changes CT angiogram of the chest was done due to sharp pain showed no evidence of PE. Consolidation changes within the inferior aspect of the left upper lobe superimposed on emphysema changes correlate for pneumonia. Compression deformities of T8 and L1 of at least 70% and near complete height loss of L1. L1 . appears to be chronic. Laboratory data showed WBC 14.3 hemoglobin 14.5 and platelets 203 and neutrophils 12 Sodium 138 chloride 107 bicarb is 24 BUN 18 and creatinine 1.25 Calcium 8.1 magnesium 2.5 AST 59 ALT 38 alk phos 124 troponin less than 0.012 proBNP 890 Coronavirus PCR not detected Lactic acid 2.4 and CRP 15.6 Review of Systems Constitutional: Patient denies any fever or chills . No generalized weakness or weight loss. Abdomen: Patient denied nausea vomiting and diarrhea and abdominal pain. Cardiovascular: Patient denies any chest pain or short of breath no palpitations. Respiratory: Patient does have cough without any sputum production. Does have shortness of breath Neurologic: Patient denied any numbness or tingling headache. Musculoskeletal: Patient denies any complaints of joint swelling or deformity. Severe back pain. Skin: Negative Psychiatric: Negative Endocrine: No heat or cold intolerance. No recent weight gain. Genitourinary: No dysuria or hematuria. All other 14 point ROS negative except the above Past Medical History Past Medical History: Asthma, COPD, Myocardial Infarction ([place]) Additional Past Medical History / Comment(s): See Juan Luis's H&P,uses O2 @ 2 liters NC,urine incont.,daily steroid,pituitary tumor,blind rt eye,loss peripheral vision lt eye Last Myocardial Infarction Date:: 2012 History of Any Multi-Drug Resistant Organisms: MRSA Date of last positivie culture/infection: 2008 MDRO Source:: rt forehead Past Surgical History: Adenoidectomy, Appendectomy, Bladder Surgery, Cholecyst ectomy, Heart Catheterization With Stent, Hysterectomy, Orthopedic Surgery, Tonsillectomy, Tubal Ligation Additional Past Surgical History / Comment(s): brain surg to remove pituitary tumor,expl lap,vaginal cyst removed,bladder susp,carpel tunnel joseph hands,surg lt foot x3,rt forehead bone removed due to mrsa, artificial cap placed to rt forehead,screws and plate remove from skull,lt cataract,lt breast bx,heart stents x2, defibulator placed 01-08-16 Past Anesthesia/Blood Transfusion Reactions: Postoperative Nausea & Vomiting (PONV) Additional Past Anesthesia/Blood Transfusion Reaction / Comment(s): no hx blood transfusion Date of Last Stent Placement:: 09-01-2012 Past Psychological History: Anxiety Smoking Status: Former smoker Past Alcohol Use History: None Reported Past Drug Use History: None Reported - Past Family History Mother Family Medical History: Cancer Additional Family Medical History / Comment(s): ovarian Father Family Medical History: COPD Additional Family Medical History / Comment(s): heart problems,emphysema Brother(s) Additional Family Medical History / Comment(s): cabg-4 vessels Sister(s) Family Medical History: Cancer Additional Family Medical History / Comment(s): kidney Medications and Allergies Home Medications Medication Instructions Recorded Confirmed Type Aspirin 81 mg PO DAILY 01/06/16 10/22/21 History Furosemide [Lasix] 40 mg PO DAILY 01/06/16 10/22/21 History Hydrocortisone [Cortef] 15 mg PO W/BRKFST 01/06/16 10/22/21 History Metoprolol Tartrate 12.5 mg PO HS 01/06/16 10/22/21 History Montelukast [Singulair] 10 mg PO HS 01/06/16 10/22/21 History Multivitamins, Thera [Multivitamin 1 tab PO DAILY 01/06/16 10/22/21 History (formulary)] Nitroglycerin Sl Tabs [Nitrostat] 0.4 mg SUBLINGUAL Q5M PRN 01/06/16 10/22/21 History Omeprazole 20 mg PO DAILY 01/06/16 10/22/21 History Oxybutynin Chloride 5 mg PO BID 01/06/16 10/22/21 History Potassium Chloride [Klor-Con 20] 20 meq PO DAILY 01/06/16 10/22/21 History Albuterol Nebulized [Ventolin 2.5 mg INHALATION RT-QID 11/05/17 10/22/21 History Nebulized] Apixaban [Eliquis] 5 mg PO BID 10/22/21 10/22/21 History Baclofen 10 mg PO TID PRN 10/22/21 10/22/21 History Budesonide [Pulmicort] 0.5 mg INHALATION RT-BID 10/22/21 10/22/21 History Cholecalciferol [Vitamin D3 (25 50 mcg PO DAILY 10/22/21 10/22/21 History Mcg = 1000 Iu)] HYDROcodone/APAP 10-325MG [[facility] 1 tab PO Q4HR PRN 10/22/21 10/22/21 History 10-325] Hydrocortisone [Cortef] 5 mg PO W/LUNCH 10/22/21 10/22/21 History Levothyroxine Sodium [Synthroid] 112 mcg PO DAILY 10/22/21 10/22/21 History Loratadine [Claritin] 10 mg PO HS 10/22/21 10/22/21 History QUEtiapine [SEROquel] 50 mg PO HS 10/22/21 10/22/21 History Sertraline [Zoloft] 100 mg PO DAILY 10/22/21 10/22/21 History Allergies Allergy/AdvReac Type Severity Reaction Status Date / Time codeine Allergy Rash/Hives, Verified 10/22/21 21:09 N/V ibuprofen Allergy Anaphylaxis Verified 10/22/21 21:09 lisinopril Allergy Rash/Hives Verified 10/22/21 21:09 naproxen [From Naprosyn] Allergy Anaphylaxis Verified 10/22/21 21:09 streptomycin Allergy Anaphylaxis Verified 10/22/21 21:09 alendronate sodium AdvReac Nausea & Verified 10/22/21 21:09 [From Fosamax] Vomiting Physical Exam Vitals: Vital Signs Temp Pulse Pulse Resp BP BP Pulse Ox 10/23/21 07:12 98.7 F 78 17 118/61 96 10/23/21 00:20 97.9 F 99 19 144/77 96 10/22/21 23:30 88 10/22/21 23:25 88 10/22/21 22:48 102 H 22 119/75 95 10/22/21 20:07 89 22 116/66 95 10/22/21 17:22 97.5 F L 108 H 22 133/76 94 L Intake and Output 10/22/21 10/23/21 10/23/21 22:59 06:59 14:59 Other: Voiding Method Toilet # Voids 1 Weight 74.843 kg PHYSICAL EXAMINATION: Patient is lying in the bed comfortably, no acute distress, awake alert and oriented.. HEENT: Normocephalic. Neck is supple. Pupils reactive. Nostrils clear. Oral cavity is moist. Neck reveals no JVD, carotid bruits, or thyromegaly. CHEST EXAMINATION: Trachea is central. Symmetrical expansion. Bibasilar diminis hed sounds otherwise Lung carrion clear to auscultation and percussion. CARDIAC: Normal S1, S2 with no gallops. No murmurs ABDOMEN: Soft. Bowel sounds normal. No organomegaly. No abdominal bruits. Extremities: reveal no edema. No clubbing or cyanosis Neurologically awake, alert, oriented x3 with well-coordinated movements. No focal deficits noted Skin: No rash or skin lesions. Psychiatric: Coperative. Nonsuicidal Musculoskeletal: No joint swelling or deformity. Normal range of motion. Results CBC & Chem 7: 10/23/21 05:45 10/23/21 05:45 Labs: Abnormal Lab Results - Last 24 Hours (Table) 10/22/21 10/22/21 10/22/21 Range/Units 18:41 18:41 20:20 WBC 14.3 H (3.8-10.6) k/uL MCV (80.0-100.0) fL MCHC (31.0-37.0) g/dL Neutrophils # 12.6 H (1.3-7.7) k/uL Lymphocytes # 0.8 L (1.0-4.8) k/uL Chloride (98-107) mmol/L BUN 18 H (7-17) mg/dL Creatinine 1.25 H (0.52-1.04) mg/dL Glucose 137 H (74-99) mg/dL Plasma Lactic Acid Saravanan (0.7-2.0) mmol/L Calcium 8.1 L (8.4-10.2) mg/dL Magnesium 2.5 H (1.6-2.3) mg/dL AST 59 H (14-36) U/L ALT 38 H (4-34) U/L C-Reactive Protein 15.6 H (<1.0) mg/dL Total Protein (6.3-8.2) g/dL Albumin (3.5-5.0) g/dL 10/22/21 10/22/21 10/23/21 Range/Units 20:54 23:53 05:45 WBC 11.2 H (3.8-10.6) k/uL MCV 100.3 H (80.0-100.0) fL MCHC 30.8 L (31.0-37.0) g/dL Neutrophils # 8.0 H (1.3-7.7) k/uL Lymphocytes # (1.0-4.8) k/uL Chloride (98-107) mmol/L BUN (7-17) mg/dL Creatinine (0.52-1.04) mg/dL Glucose (74-99) mg/dL Plasma Lactic Acid Saravanan 2.4 H* 2.7 H* (0.7-2.0) mmol/L Calcium (8.4-10.2) mg/dL Magnesium (1.6-2.3) mg/dL AST (14-36) U/L ALT (4-34) U/L C-Reactive Protein (<1.0) mg/dL Total Protein (6.3-8.2) g/dL Albumin (3.5-5.0) g/dL 10/23/21 Range/Units 05:45 WBC (3.8-10.6) k/uL MCV (80.0-100.0) fL MCHC (31.0-37.0) g/dL Neutrophils # (1.3-7.7) k/uL Lymphocytes # (1.0-4.8) k/uL Chloride 108 H (98-107) mmol/L BUN (7-17) mg/dL Creatinine 1.13 H (0.52-1.04) mg/dL Glucose 70 L (74-99) mg/dL Plasma Lactic Acid Saravanan (0.7-2.0) mmol/L Calcium 7.5 L (8.4-10.2) mg/dL Magnesium 2.4 H (1.6-2.3) mg/dL AST 41 H (14-36) U/L ALT 35 H (4-34) U/L C-Reactive Protein (<1.0) mg/dL Total Protein 6.0 L (6.3-8.2) g/dL Albumin 3.2 L (3.5-5.0) g/dL Thrombosis Risk Factor Assmnt - DVT/VTE Prophylaxis DVT/VTE Prophylaxis: Pharmacologic Prophylaxis ordered - Choose All That Apply Any of the Below Risk Factors Present?: Yes Each Factor Represents 1 point: Abnormal pulmonary function (COPD) Other Risk Factors: Yes Each Risk Factor Represents 2 Points: Age 61-74 years Other congenital or acquired thrombophilia - If yes, enter type in comment: No Thrombosis Risk Factor Assessment Total Risk Factor Score: 3 Thrombosis Risk Factor Assessment Level: Moderate Risk Assessment and Plan Assessment: Acute on chronic back pain with T8 compression fracture. Changes seem to be chronic as per CTA chest. Left lower lobe pneumonia Sepsis secondary to above Mild acute kidney injury likely prerenal Mild transaminitis History NC Coronary disease with history of stent placement COPD on home oxygen at 2 L via nasal cannula History of pituitary tumor s/p resection. On Cortef Right eye blindness Anxiety Previous history of smoking DVT prophylaxis on Eliquis already. Plan: Patient will be continued on pain management with Dilaudid IV and gradually transition to by mouth. Continue with antibiotics ceftriaxone and azithromycin. Repeat chest x-ray showed left lower lobe infiltrate. Current with home medications and follow-up closely. ID was consulted. PT OT consulted. Prognosis is patient may need guarded. Patient may need rehab transfer. Time with Patient: Greater than 30
[2021-10-23 16:58] LABS: Glucose,Whole Blood 139 mg/dL (75-99)
[2021-10-23] MEDS: AZITHROMYCIN 500 MG TAB PO SCH (17:16)
[2021-10-23] MEDS: BUDESONIDE 0.5 MG/2 ML NEBU INHALATION SCH (19:34)
--- NOTE | 2021-10-23 21:24 | P.CONS ---
History of Present Illness - Reason for Consult Consult date: 10/23/21 Sepsis Requesting physician: Michelle Posada - Chief Complaint Left-sided chest pain x few days - History of Present Illness Patient is a 70-year female with a past medical significant for asthma/COPD history of CO and congestive heart failure presenting to the ER last evening for evaluation of the left lower chest pain patient mentioned symptom has been getting worse for few days before presentation to the hospital no history of any trauma has been complaining of pain to be sharp and worse with taking a deep breath intense is almost 8 out of 10 and no radiation patient also have a cough but not bringing up any sputum patient denies having any nausea or vomiting no abdominal pain or any diarrhea with the symptom the patient was evaluated by ER physician on arrival to the ER patient was afebrile patient did have white count of 14.3 with a left shift creatinine was mildly elevated liver enzymes mildly elevated COVID testing was negative urine for the general is negative blood cultures obtained which are currently pending sputum requested not collected patient did have a chest x-ray hazy opacity within the left lung base is new compared to previous exam patient did have a CT angiogram of the chest that was negative for PE, however did shows consolidative changes within the inferior aspect of the left upper lobe superimposed on emphysema patient was admitted to the hospital started on Rocephin and Zithromax infectious disease consulted for further management of antibiotic therapy Review of Systems Positive point has been mentioned in the HPI rest of the systems are negative Past Medical History Past Medical History: Asthma, COPD, Myocardial Infarction ([place]) Additional Past Medical History / Comment(s): See Juan Luis's H&P,uses O2 @ 2 liters NC,urine incont.,daily steroid,pituitary tumor,blind rt eye,loss peripheral vision lt eye Last Myocardial Infarction Date:: 2012 History of Any Multi-Drug Resistant Organisms: MRSA Year Discovered:: 2008 MDRO Source:: rt forehead Past Surgical History: Adenoidectomy, Appendectomy, Bladder Surgery, Cholecystectomy, Heart Catheterization With Stent, Hysterectomy, Orthopedic Surgery, Tonsillectomy, Tubal Ligation Additional Past Surgical History / Comment(s): brain surg to remove pituitary tumor,expl lap,vaginal cyst removed,bladder susp,carpel tunnel joseph hands,surg lt foot x3,rt forehead bone removed due to mrsa, artificial cap placed to rt for ehead,screws and plate remove from skull,lt cataract,lt breast bx,heart stents x2, defibulator placed 01-08-16 Past Anesthesia/Blood Transfusion Reactions: Postoperative Nausea & Vomiting (PONV) Additional Past Anesthesia/Blood Transfusion Reaction / Comm: no hx blood transfusion Date of Last Stent Placement:: 09-01-2012 Past Psychological History: Anxiety Smoking Status: Former smoker Past Alcohol Use History: None Reported Past Drug Use History: None Reported - Past Family History Mother Family Medical History: Cancer Additional Family Medical History / Comment(s): ovarian Father Family Medical History: COPD Additional Family Medical History / Comment(s): heart problems,emphysema Brother(s) Additional Family Medical History / Comment(s): cabg-4 vessels Sister(s) Family Medical History: Cancer Additional Family Medical History / Comment(s): kidney Medications and Allergies Home Medications Medication Instructions Recorded Confirmed Type Aspirin 81 mg PO DAILY 01/06/16 10/22/21 History Furosemide [Lasix] 40 mg PO DAILY 01/06/16 10/22/21 History Hydrocortisone [Cortef] 15 mg PO W/BRKFST 01/06/16 10/22/21 History Metoprolol Tartrate 12.5 mg PO HS 01/06/16 10/22/21 History Montelukast [Singulair] 10 mg PO HS 01/06/16 10/22/21 History Multivitamins, Thera [Multivitamin 1 tab PO DAILY 01/06/16 10/22/21 History (formulary)] Nitroglycerin Sl Tabs [Nitrostat] 0.4 mg SUBLINGUAL Q5M PRN 01/06/16 10/22/21 History Omeprazole 20 mg PO DAILY 01/06/16 10/22/21 History Oxybutynin Chloride 5 mg PO BID 01/06/16 10/22/21 History Potassium Chloride [Klor-Con 20] 20 meq PO DAILY 01/06/16 10/22/21 History Albuterol Nebulized [Ventolin 2.5 mg INHALATION RT-QID 11/05/17 10/22/21 History Nebulized] Apixaban [Eliquis] 5 mg PO BID 10/22/21 10/22/21 History Baclofen 10 mg PO TID PRN 10/22/21 10/22/21 History Budesonide [Pulmicort] 0.5 mg INHALATION RT-BID 10/22/21 10/22/21 History Cholecalciferol [Vitamin D3 (25 50 mcg PO DAILY 10/22/21 10/22/21 History Mcg = 1000 Iu)] HYDROcodone/APAP 10-325MG [[place] 1 tab PO Q4HR PRN 10/22/21 10/22/21 History 10-325] Hydrocortisone [Cortef] 5 mg PO W/LUNCH 10/22/21 10/22/21 History Levothyroxine Sodium [Synthroid] 112 mcg PO DAILY 10/22/21 10/22/21 History Loratadine [Claritin] 10 mg PO HS 10/22/21 10/22/21 History QUEtiapine [SEROquel] 50 mg PO HS 10/22/21 10/22/21 History Sertraline [Zoloft] 100 mg PO DAILY 10/22/21 10/22/21 History Allergies Allergy/AdvReac Type Severity Reaction Status Date / Time codeine Allergy Rash/Hives, Verified 10/22/21 21:09 N/V ibuprofen Allergy Anaphylaxis Verified 10/22/21 21:09 lisinopril Allergy Rash/Hives Verified 10/22/21 21:09 naproxen [From Naprosyn] Allergy Anaphylaxis Verified 10/22/21 21:09 streptomycin Allergy Anaphylaxis Verified 10/22/21 21:09 alendronate sodium AdvReac Nausea & Verified 10/22/21 21:09 [From Fosamax] Vomiting Physical Exam Vitals: Vital Signs Temp Pulse Pulse Resp BP BP Pulse Ox 10/23/21 07:12 98.7 F 78 17 118/61 96 10/23/21 00:20 97.9 F 99 19 144/77 96 10/22/21 23:30 88 10/22/21 23:25 88 10/22/21 22:48 102 H 22 119/75 95 10/22/21 20:07 89 22 116/66 95 10/22/21 17:22 97.5 F L 108 H 22 133/76 94 L Intake and Output 10/22/21 10/23/21 10/23/21 22:59 06:59 14:59 Other: Voiding Method Toilet # Voids 1 Weight 74.843 kg GENERAL DESCRIPTION: Elderly female lying in bed, no distress. No tachypnea or accessory muscle of respiration use. HEENT: Shows Pallor , no scleral icterus. Oral mucous membrane is dry. No pharyngeal erythema or thrush NECK: Trachea central, no thyromegaly. LUNGS: Unlabored breathing. Coarse breath sounds at base. No wheeze or crackle. HEART: S1, S2, regular rate and rhythm. No loud murmur ABDOMEN: Soft, no tenderness , guarding or rigidity, no organomegaly EXTREMITIES: No edema of feet. SKIN: No rash, no masses palpable. NEUROLOGICAL: The patient is awake, alert, oriented x3, mood and affect normal. Results CBC & Chem 7: 10/23/21 05:45 10/23/21 05:45 Labs: Abnormal Lab Results - Last 24 Hours (Table) 10/22/21 10/22/21 10/22/21 Range/Units 18:41 18:41 20:20 WBC 14.3 H (3.8-10.6) k/uL MCV (80.0-100.0) fL MCHC (31.0-37.0) g/dL Neutrophils # 12.6 H (1.3-7.7) k/uL Lymphocytes # 0.8 L (1.0-4.8) k/uL Chloride (98-107) mmol/L BUN 18 H (7-17) mg/dL Creatinine 1.25 H (0.52-1.04) mg/dL Glucose 137 H (74-99) mg/dL Plasma Lactic Acid Saravanan (0.7-2.0) mmol/L Calcium 8.1 L (8.4-10.2) mg/dL Magnesium 2.5 H (1.6-2.3) mg/dL AST 59 H (14-36) U/L ALT 38 H (4-34) U/L C-Reactive Protein 15.6 H (<1.0) mg/dL Total Protein (6.3-8.2) g/dL Albumin (3.5-5.0) g/dL 10/22/21 10/22/21 10/23/21 Range/Units 20:54 23:53 05:45 WBC 11.2 H (3.8-10.6) k/uL MCV 100.3 H (80.0-100.0) fL MCHC 30.8 L (31.0-37.0) g/dL Neutrophils # 8.0 H (1.3-7.7) k/uL Lymphocytes # (1.0-4.8) k/uL Chloride (98-107) mmol/L BUN (7-17) mg/dL Creatinine (0.52-1.04) mg/dL Glucose (74-99) mg/dL Plasma Lactic Acid Saravanan 2.4 H* 2.7 H* (0.7-2.0) mmol/L Calcium (8.4-10.2) mg/dL Magnesium (1.6-2.3) mg/dL AST (14-36) U/L ALT (4-34) U/L C-Reactive Protein (<1.0) mg/dL Total Protein (6.3-8.2) g/dL Albumin (3.5-5.0) g/dL 10/23/21 Range/Units 05:45 WBC (3.8-10.6) k/uL MCV (80.0-100.0) fL MCHC (31.0-37.0) g/dL Neutrophils # (1.3-7.7) k/uL Lymphocytes # (1.0-4.8) k/uL Chloride 108 H (98-107) mmol/L BUN (7-17) mg/dL Creatinine 1.13 H (0.52-1.04) mg/dL Glucose 70 L (74-99) mg/dL Plasma Lactic Acid Saravanan (0.7-2.0) mmol/L Calcium 7.5 L (8.4-10.2) mg/dL Magnesium 2.4 H (1.6-2.3) mg/dL AST 41 H (14-36) U/L ALT 35 H (4-34) U/L C-Reactive Protein (<1.0) mg/dL Total Protein 6.0 L (6.3-8.2) g/dL Albumin 3.2 L (3.5-5.0) g/dL Assessment and Plan (1) Pneumonia Current Visit: Yes Status: Acute Code(s): J18.9 - PNEUMONIA, UNSPECIFIED ORGANISM SNOMED Code(s): 357004765 Plan: 1patient presented hospital with left-sided chest pain cough did have elevated white count in this patient with underlying emphysema CT did shows consolidative change in the left lung suspicious for pneumonia possible community-acquired as patient white count responded to the Rocephin and Zithromax 2-we will try to obtain sputum for gram stain and culture 3-continue with Rocephin and Zithromax We will follow on clinical condition and cultures to further adjust medication if needed Thank you for this consultation will follow this patient along with you Time with Patient: Greater than 30
[2021-10-23] MEDS: MONTELUKAST 10 MG TAB PO SCH (21:28)
[2021-10-23] MEDS: METOPROLOL TARTRATE 12.5 MG TAB PO SCH (21:28)
[2021-10-23] MEDS: LORATADINE 10 MG TAB PO SCH (21:29)
[2021-10-23] MEDS: QUEtiapine 50 MG TAB PO SCH (21:29)
[2021-10-23] MEDS: HYDROmorphone 0.5 MG/0.5 ML SYRINGE IVP PRN (22:02)
[2021-10-24] MEDS: HYDROmorphone 0.5 MG/0.5 ML SYRINGE IVP PRN ×2 (03:14→20:24)
[2021-10-24] MEDS: SODIUM CHLORIDE 0.9% 1,000 ML IV SCH ×2 (03:15→16:24)
[2021-10-24] MEDS: LEVOTHYROXINE 112 MCG TAB PO SCH (05:57)
[2021-10-24] MEDS: HYDROcodone/APAP 10-325MG 1 EACH TAB PO PRN ×3 (06:08→16:25)
[2021-10-24] MEDS: ALBUTEROL NEBULIZED 2.5 MG/3 ML INHALATION SCH ×4 (07:30→19:37)
[2021-10-24] MEDS: BUDESONIDE 0.5 MG/2 ML NEBU INHALATION SCH ×2 (07:30→19:37)
[2021-10-24] MEDS: SERTRALINE 100 MG TAB PO SCH (09:09)
[2021-10-24] MEDS: ASPIRIN 81 MG PO SCH (09:09)
[2021-10-24] MEDS: APIXABAN 5 MG TAB PO SCH ×2 (09:09→20:07)
[2021-10-24] MEDS: CHOLECALCIFEROL 25 MCG (1000 IU) TABLET PO SCH (09:09)
[2021-10-24] MEDS: OXYBUTYNIN CHLORIDE 5 MG TAB PO SCH ×2 (09:09→20:06)
[2021-10-24] MEDS: MULTIVITAMINS, THERA 1 EACH TAB PO SCH (09:09)
[2021-10-24] MEDS: POTASSIUM CHLORIDE ER 20 MEQ TAB.ER PO SCH (09:09)
[2021-10-24] MEDS: FUROSEMIDE 40 MG TAB PO SCH (09:09)
[2021-10-24] MEDS: PANTOPRAZOLE 40 MG TABLET PO SCH (09:10)
[2021-10-24] MEDS: HYDROmorphone 1 MG/ML 1 ML SYRINGE IVP PRN (09:10)
[2021-10-24] MEDS: AZITHROMYCIN 500 MG TAB PO SCH (09:14)
[2021-10-24] MEDS: HYDROCORTISONE 10 MG TAB PO SCH ×2 (09:15→12:43)
--- NOTE | 2021-10-24 17:56 | P.PN ---
Subjective Progress Note Date: 10/24/21 Principal diagnosis: Pneumonia Patient is a 70-year-old female presenting to the hospital with left- sided chest pain and cough in this patient did have a CT suspicious for pneumonia possible community acquired On today's evaluation her that is 10/24/2021, the patient denies having any fever or any chills, the patient denies any chest pain is currently controlled the patient did have cough but not bringing up any sputum, no nausea no vomiting no abdominal pain no diarrhea Objective - Vital Signs Vital signs: Vital Signs Temp 98.1 F 10/24/21 08:00 Pulse 93 10/24/21 15:46 Resp 18 10/24/21 08:00 BP 111/67 10/24/21 08:00 Pulse Ox 92 L 10/24/21 08:00 Intake & Output 10/23/21 10/24/21 10/24/21 18:59 06:59 18:59 Intake Total 50 Balance 50 Intake: Intake, IV Titration 50 Amount cefTRIAXone 1 gm In 50 Sodium Chloride 0.9% 50 ml @ 100 mls/hr IVPB Q24HR [facility] Rx#:[id number] Other: Voiding Method Toilet Bedside Commode External Catheter # Voids 6 1 2 - Exam GENERAL DESCRIPTION: An elderly female lying in bed in no distress RESPIRATORY SYSTEM: Unlabored breathing , decreased breath sounds at bases HEART: S1 S2 regular rate and rhythm , ABDOMEN: Soft , no tenderness EXTREMITIES: No edema feet - Labs CBC & Chem 7: 10/23/21 05:45 10/23/21 05:45 Labs: Abnormal Lab Results - Last 24 Hours (Table) 10/23/21 Range/Units 16:57 POC Glucose (mg/dL) 139 H (75-99) mg/dL Microbiology - Last 24 Hours (Table) 10/22/21 20:20 Blood Culture - Preliminary Blood No Growth after 24 hours 10/22/21 20:35 Blood Culture - Preliminary Blood No Growth after 24 hours Assessment and Plan (1) Pneumonia Current Visit: Yes Status: Acute Code(s): J18.9 - PNEUMONIA, UNSPECIFIED ORGANISM SNOMED Code(s): 388454626 Plan: 1patient presented hospital with left-sided chest pain cough did have elevated white count in this patient with underlying emphysema CT did shows consolidative change in the left lung suspicious for pneumonia possible community-acquired as patient white count responded to the Rocephin and Zithromax 2- sputum for gram stain and culture have not been collected yet 3-patient to continue with Rocephin and Zithromax Time with Patient: Less than 30
[2021-10-24] MEDS: MONTELUKAST 10 MG TAB PO SCH (20:06)
[2021-10-24] MEDS: METOPROLOL TARTRATE 12.5 MG TAB PO SCH (20:07)
[2021-10-24] MEDS: QUEtiapine 50 MG TAB PO SCH (20:07)
[2021-10-24] MEDS: LORATADINE 10 MG TAB PO SCH (20:07)
[2021-10-25] MEDS: HYDROmorphone 1 MG/ML 1 ML SYRINGE IVP PRN (00:38)
[2021-10-25] MEDS: HYDROmorphone 0.5 MG/0.5 ML SYRINGE IVP PRN ×4 (05:06→17:52)
[2021-10-25] MEDS: SODIUM CHLORIDE 0.9% 1,000 ML IV SCH ×2 (05:14→19:54)
[2021-10-25] MEDS: LEVOTHYROXINE 112 MCG TAB PO SCH (05:14)
[2021-10-25] MEDS: SERTRALINE 100 MG TAB PO SCH (08:30)
[2021-10-25] MEDS: POTASSIUM CHLORIDE ER 20 MEQ TAB.ER PO SCH (08:30)
[2021-10-25] MEDS: PANTOPRAZOLE 40 MG TABLET PO SCH (08:30)
[2021-10-25] MEDS: MULTIVITAMINS, THERA 1 EACH TAB PO SCH (08:30)
[2021-10-25] MEDS: CHOLECALCIFEROL 25 MCG (1000 IU) TABLET PO SCH (08:30)
[2021-10-25] MEDS: FUROSEMIDE 40 MG TAB PO SCH (08:30)
[2021-10-25] MEDS: ASPIRIN 81 MG PO SCH (08:30)
[2021-10-25] MEDS: APIXABAN 5 MG TAB PO SCH ×2 (08:30→19:54)
[2021-10-25] MEDS: OXYBUTYNIN CHLORIDE 5 MG TAB PO SCH ×2 (08:30→19:54)
[2021-10-25] MEDS: BUDESONIDE 0.5 MG/2 ML NEBU INHALATION SCH ×2 (08:32→19:08)
[2021-10-25] MEDS: ALBUTEROL NEBULIZED 2.5 MG/3 ML INHALATION SCH ×4 (08:32→19:07)
[2021-10-25] MEDS: HYDROCORTISONE 10 MG TAB PO SCH ×2 (08:32→11:16)
[2021-10-25] MEDS: AZITHROMYCIN 500 MG TAB PO SCH (08:32)
[2021-10-25] MEDS: BACLOFEN 10 MG TAB PO PRN (08:36)
[2021-10-25] MEDS: DOCUSATE 100 MG CAP PO PRN ×2 (08:37→19:55)
[2021-10-25 08:51] LABS: Basophils # (A) 0.04 X 10*3/uL (0.00-0.10); Basophils % (A) 0.3 %; Eosinophils # (A) 0.23 X 10*3/uL (0.04-0.35); Eosinophils % (A) 1.9 %; HCT 37.6 % (37.2-46.3); HGB 11.2 g/dL (12.0-15.0); Immature Grans, Automated 2.4 %; Lymphocytes # (A) 2.52 X 10*3/uL (0.90-5.00); Lymphocytes % (A) 21.4 %; MCH 29.6 pg (27.0-32.0); MCHC 29.8 g/dL (32.0-37.0); MCV 99.5 fL (80.0-97.0); Mean Platelet Volume 11.4 fL (9.5-12.2); Monocytes # (A) 0.78 X 10*3/uL (0.20-1.00); Monocytes % (A) 6.6 %; NRBC Per 100 WBC 0 /100 WBCS (0.0-0.0); Neutrophils # (A) 7.95 X 10*3/uL (1.80-7.70); Neutrophils % (A) 67.4 %; Platelet Count 208 X 10*3/uL (140-440); RBC 3.78 X 10*6/uL (4.10-5.20); RDW 14.3 % (11.5-14.5)
[2021-10-25 08:56] LABS: African American GFR (CKD) 64.4 (60.0-200.0); Anion Gap 11.8 mmol/L (10.00-18.00); BUN/Creat Ratio 5.19 Ratio (12.00-20.00); Blood Urea Nitrogen 5.2 mg/dL (9.0-27.0); Calcium 8.3 mg/dL (8.7-10.3); Carbon Dioxide 25.3 mmol/L (20.0-27.5); Non-African American GFR(CKD) 55.6 (60.0-200.0); Potassium 3.2 mmol/L (3.5-5.5)
[2021-10-25] MEDS: HYDROcodone/APAP 10-325MG 1 EACH TAB PO PRN (10:28)
--- NOTE | 2021-10-25 13:03 | P.CNOR ---
History of Present Illness - [facility] Consult date: 10/25/21 Requesting physician: Blair Perkins Consult reason: fracture (T8 and L1 compression fracture deformities) History of present illness: Patient is a very pleasant 70-year-old female who is seen and examined at bedside for further evaluation of compression fracture deformities at T8 and L1. Patient states she was admitted to [facility] a few weeks ago and was admitted for 5 days due to pain. She was diagnosed with the fractures at that time. She states she has a known L1 compression fracture of indeterminate age but her T8 compression fracture was newly diagnosed. She was not fitted with a brace at the time of her admission. She states she was schedu led for further evaluation with a spine surgeon in the outpatient setting but she states the day of the appointment it was icy and she was unable to make it to her vehicle to make it to the appointment. She does not recall who she was scheduled to see in the outpatient setting. She presented to [facility] on 10/22/2021 for shortness of breath. She felt some of her trouble breathing may be due to her compression fracture. During her admission she has been seen by medicine and infectious disease. She was found to have left lower lobe pneumonia and sepsis. She is currently on antibiotics with Rocephin and azithromycin. She is known have COPD is on 2 L of O2 nasal cannula while at home. She is currently on Eliquis for DVT prophylaxis. She does have a defibrillator placed. She has a history of coronary artery disease with cardiac stent placement. She also has a history of pituitary tumor with resection, history of asthma, history of previous smoking, anxiety, history of [place], mild acute kidney injury, and mild transaminitis. Patient denies any changes in her lower extremities bilaterally. She states her pain is most significant at her midthoracic spine and some of the upper lumbar spine. She denies any injuries. She states her pain is exacerbated with coughing, sneezing, and increased activities. Her pain is better controlled at rest. She states following her discharge from [facility] she has followed with her primary care provider. She has been taking Gila 10 mg/325 mg and a muscle relaxer in the outpatient setting as prescribed for pain control by her primary care provider. Patient has had some constipation with oral Gila. She is currently on Colace for constipation. Past Medical History Past Medical History: Asthma, COPD, Myocardial Infarction ([place]) Additional Past Medical History / Comment(s): See [facility] H&P,uses O2 @ 2 liters NC,urine incont.,daily steroid,pituitary tumor,blind rt eye,loss peripheral vision lt eye Last Myocardial Infarction Date:: 2012 History of Any Multi-Drug Resistant Organisms: MRSA Year Discovered:: 2008 MDRO Source:: rt forehead Past Surgical History: Adenoidectomy, Appendectomy, Bladder Surgery, Cholecystectomy, Heart Catheterization With Stent, Hysterectomy, Orthopedic Surgery, Tonsillectomy, Tubal Ligation Additional Past Surgical History / Comment(s): brain surg to remove pituitary tumor,expl lap,vaginal cyst removed,bladder susp,carpel tunnel joseph hands,surg lt foot x3,rt forehead bone removed due to mrsa, artificial cap placed to rt forehead,screws and plate remove from skull,lt cataract,lt breast bx,heart stents x2, defibulator placed 01-08-16 Past Anesthesia/Blood Transfusion Reactions: Postoperative Nausea & Vomiting (PONV) Additional Past Anesthesia/Blood Transfusion Reaction / Comm: no hx blood transfusion Date of Last Stent Placement:: 09-01-2012 Past Psychological History: Anxiety Smoking Status: Former smoker Past Alcohol Use History: None Reported Past Drug Use History: None Reported - Past Family History Mother Family Medical History: Cancer Additional Family Medical History / Comment(s): ovarian Father Family Medical History: COPD Additional Family Medical History / Comment(s): heart problems,emphysema Brother(s) Additional Family Medical History / Comment(s): cabg-4 vessels Sister(s) Family Medical History: Cancer Additional Family Medical History / Comment(s): kidney Medications and Allergies Home Medications Medication Instructions Recorded Confirmed Type Aspirin 81 mg PO DAILY 01/06/16 10/22/21 History Furosemide [Lasix] 40 mg PO DAILY 01/06/16 10/22/21 History Hydrocortisone [Cortef] 15 mg PO W/BRKFST 01/06/16 10/22/21 History Metoprolol Tartrate 12.5 mg PO HS 01/06/16 10/22/21 History Montelukast [Singulair] 10 mg PO HS 01/06/16 10/22/21 History Multivitamins, Thera [Multivitamin 1 tab PO DAILY 01/06/16 10/22/21 History (formulary)] Nitroglycerin Sl Tabs [Nitrostat] 0.4 mg SUBLINGUAL Q5M PRN 01/06/16 10/22/21 History Omeprazole 20 mg PO DAILY 01/06/16 10/22/21 History Oxybutynin Chloride 5 mg PO BID 01/06/16 10/22/21 History Potassium Chloride [Klor-Con 20] 20 meq PO DAILY 01/06/16 10/22/21 History Albuterol Nebulized [Ventolin 2.5 mg INHALATION RT-QID 11/05/17 10/22/21 History Nebulized] Apixaban [Eliquis] 5 mg PO BID 10/22/21 10/22/21 History Baclofen 10 mg PO TID PRN 10/22/21 10/22/21 History Budesonide [Pulmicort] 0.5 mg INHALATION RT-BID 10/22/21 10/22/21 History Cholecalciferol [Vitamin D3 (25 50 mcg PO DAILY 10/22/21 10/22/21 History Mcg = 1000 Iu)] HYDROcodone/APAP 10-325MG [Gila 1 tab PO Q4HR PRN 10/22/21 10/22/21 History 10-325] Hydrocortisone [Cortef] 5 mg PO W/LUNCH 10/22/21 10/22/21 History Levothyroxine Sodium [Synthroid] 112 mcg PO DAILY 10/22/21 10/22/21 History Loratadine [Claritin] 10 mg PO HS 10/22/21 10/22/21 History QUEtiapine [SEROquel] 50 mg PO HS 10/22/21 10/22/21 History Sertraline [Zoloft] 100 mg PO DAILY 10/22/21 10/22/21 History Allergies Allergy/AdvReac Type Severity Reaction Status Date / Time codeine Allergy Rash/Hives, Verified 10/22/21 21:09 N/V ibuprofen Allergy Anaphylaxis Verified 10/22/21 21:09 lisinopril Allergy Rash/Hives Verified 10/22/21 21:09 naproxen [From Naprosyn] Allergy Anaphylaxis Verified 10/22/21 21:09 streptomycin Allergy Anaphylaxis Verified 10/22/21 21:09 alendronate sodium AdvReac Nausea & Verified 10/22/21 21:09 [From Fosamax] Vomiting Physical Examination Physical exam: Patient is awake, alert, and oriented 3 Vital signs stable Adequate chest excursion with deep inspiration and expiration; O2 nasal cannula intact Examination of thoracic and lumbar spine reveals skin is intact with no gallo sions, lacerations, or bruises; no erythema, purulence or signs of infection Significant pain with palpation along the mid thoracic spine Some pain with palpation over the upper lumbar spine Dorsiflexion, plantarflexion, and extensor hallucis longus positive sustained bilaterally She does have difficulty performing hip flexion bilaterally Patellar reflex 2+ bilaterally and Achilles reflexes 1+ bilaterally No lower extremity hyperreflexia bilaterally Straight leg test negative bilateral lower extremities Negative Lasegue's test bilaterally No signs or symptoms of DVT; no calf pain No pain with internal and external rotation of the hips bilaterally Neurovascularly intact Results Pertinent studies: Chest CTA taken on 10/22/2021: Wedging T8 wedging compression fracture deformity at approximately 50% height loss; L1 wedge compression fracture deformity with approximately 80% height loss; mid lower thoracic degenerative disc disease; degenerative scoliosis of the thoracic and lumbar spines; consolidation changes within the inferior aspect of the left upper lobe - Labs Labs: Abnormal Lab Results - Last 24 Hours (Table) 10/25/21 10/25/21 10/25/21 Range/Units 04:59 04:59 04:59 WBC 11.80 H (4.50-10.00) X 10*3/uL RBC 3.78 L (4.10-5.20) X 10*6/uL Hgb 11.2 L (12.0-15.0) g/dL MCV 99.5 H (80.0-97.0) fL MCHC 29.8 L (32.0-37.0) g/dL Immature Gran # 0.28 H (0.00-0.04) X 10*3/uL Neutrophils # 7.95 H (1.80-7.70) X 10*3/uL Potassium 3.2 L (3.5-5.5) mmol/L BUN 5.2 L (9.0-27.0) mg/dL Est GFR (CKD-EPI)NonAf 55.6 L (60.0-200.0) BUN/Creatinine Ratio 5.19 L (12.00-20.00) Ratio Calcium 8.3 L (8.7-10.3) mg/dL Procalcitonin 0.11 H (0.02-0.09) ng/mL Microbiology - Last 24 Hours (Table) 10/22/21 20:35 Blood Culture - Preliminary Blood No Growth after 48 hours 10/22/21 20:20 Blood Culture - Preliminary Blood No Growth after 48 hours H & H 10/22/21 10/23/21 10/25/21 Range/Units 18:41 05:45 04:59 Hgb 14.5 12.3 11.2 L (11.4-16.0) gm/dL Hct 44.6 39.9 37.6 (34.0-46.0) % Coagulation 10/22/21 Range/Units 18:41 INR 1.0 (<1.2) Result Diagrams: 10/25/21 04:59 10/25/21 04:59 Assessment and Plan Assessment: Assessment: T8 acute to subacute compression fracture deformity with no known injury L1 compression fracture deformity of indeterminate age with no known injury Significant thoracic pain Mild lumbar pain Thoracic and lumbar degenerative scoliosis Midthoracic degenerative disc disease COPD on 2 L O2 nasal cannula in the outpatient setting Sepsis Left lower lobe pneumonia currently on antibiotics History of defibrillator placement History of coronary artery disease with cardiac stent placement Anticoagulation use with Eliquis History of myocardial infarction History of smoking History of pituitary tumor with resection History of asthma Anxiety Mild acute kidney injury Mild transaminitis Opioid-induced constipation (1) Wedge compression fracture of T8 vertebra Current Visit: Yes Status: Acute Code(s): S22.060A - WEDGE COMPRESSION FRACTURE OF T7-T8 VERTEBRA, INIT SNOMED Code(s): 197926101 (2) Compression fracture of L1 lumbar vertebra Current Visit: Yes Status: Acute Code(s): S32.010A - WEDGE COMPRESSION FRACTURE OF FIRST LUMBAR VERTEBRA, INIT SNOMED Code(s): 459222552 (3) Thoracic back pain Current Visit: Yes Status: Acute Code(s): M54.6 - PAIN IN THORACIC SPINE SNOMED Code(s): 205128810 (4) Lumbar pain Current Visit: Yes Status: Acute Code(s): M54.50 - LOW BACK PAIN, UNSPECIFIED SNOMED Code(s): 751114547 (5) Thoracic degenerative disc disease Current Visit: Yes Status: Acute Code(s): M51.34 - OTHER INTERVERTEBRAL DISC DEGENERATION, THORACIC REGION SNOMED Code(s): 49552248 (6) Scoliosis of thoracolumbar spine Current Visit: Yes Status: Acute Code(s): M41.9 - SCOLIOSIS, UNSPECIFIED SNOMED Code(s): 659356090 (7) Cardiac defibrillator in place Current Visit: Yes Status: Acute Code(s): Z95.810 - PRESENCE OF AUTOMATIC (IMPLANTABLE) CARDIAC DEFIBRILLATOR SNOMED Code(s): 562014656 (8) Coronary artery disease Current Visit: Yes Status: Acute Code(s): I25.10 - ATHSCL HEART DISEASE OF [place] CORONARY ARTERY W/O ANG PCTRS SNOMED Code(s): 11391463 (9) History of heart artery stent Current Visit: Yes Status: Acute Code(s): Z95.5 - PRESENCE OF CORONARY ANGIOPLASTY IMPLANT AND GRAFT SNOMED Code(s): 639367016 (10) Current use of entry examiner anticoagulation Current Visit: Yes Status: Acute Code(s): Z79.01 - BOOTH CLEANER (CURRENT) USE OF ANTICOAGULANTS SNOMED Code(s): 053336529 (11) On home O2 Current Visit: Yes Status: Acute Code(s): Z99.81 - DEPENDENCE ON SUPPLEMENTAL OXYGEN SNOMED Code(s): 708749878277 (12) Sepsis Current Visit: Yes Status: Acute Code(s): A41.9 - SEPSIS, UNSPECIFIED ORGANISM SNOMED Code(s): 76125812 (13) History of asthma Current Visit: Yes Status: Acute Code(s): Z87.09 - PERSONAL HISTORY OF OTHER DISEASES OF THE RESPIRATORY SYSTEM SNOMED Code(s): 617188583 (14) History of smoking Current Visit: Yes Status: Acute Code(s): Z87.891 - PERSONAL HISTORY OF NICOTINE DEPENDENCE SNOMED Code(s): 513746882 (15) History of pituitary tumor Current Visit: Yes Status: Acute Code(s): Z87.898 - PERSONAL HISTORY OF OTHER SPECIFIED CONDITIONS SNOMED Code(s): 04147453104685 (16) Anxiety Current Visit: Yes Status: Acute Code(s): F41.9 - ANXIETY DISORDER, U NSPECIFIED SNOMED Code(s): 94548330 (17) Acute kidney injury Current Visit: Yes Status: Acute Code(s): N17.9 - ACUTE KIDNEY FAILURE, UNSPECIFIED SNOMED Code(s): 18637112 (18) Transaminitis Current Visit: Yes Status: Acute Code(s): R74.01 - ELEVATION OF LEVELS OF LIVER TRANSAMINASE LEVELS SNOMED Code(s): 820242284 (19) Therapeutic opioid induced constipation Current Visit: Yes Status: Acute Code(s): K59.03 - DRUG INDUCED CONS TIPATION; T40.2X5A - ADVERSE EFFECT OF OTHER OPIOIDS, INITIAL ENCOUNTER SNOMED Code(s): 558120235713637 (20) Intractable back pain Current Visit: Yes Status: Acute Code(s): M54.9 - DORSALGIA, UNSPECIFIED SNOMED Code(s): 088832333 (21) Left lower lobe pneumonia Current Visit: Yes Status: Acute Code(s): J18.9 - PNEUMONIA, UNSPECIFIED ORGANISM SNOMED Code(s): 163729513 (22) COPD (chronic obstructive pulmonary disease) Current Visit: No Status: Acute Code(s): J44.9 - CHRONIC OBSTRUCTIVE PULMONARY DISEASE, UNSPECIFIED SNOMED Code(s): 25644797 (23) History of myocardial infarction Current Visit: No Status: Acute Code(s): I25.2 - OLD MYOCARDIAL INFARCTION SNOMED Code(s): 223739900 Plan: Plan: 1. After reviewing of imaging, physical examination the patient, and further discussion with the patient, will currently plan to continue with conservative treatment at this time. Reviewing of CTA imaging of the chest does show evidence of compression fracture deformities at T8 and L1. Patient has reported the T8 was a new compression fracture deformity while the L1 compression fracture deformity may be chronic. We do not have previous imaging to compare these fractures. On physical examination she does have significant pain in her thoracic spine with some pain in her lumbar spine as well. We did discuss she has significant other medical diagnoses including sepsis, left lower lobe pneumonia currently on antibiotics, COPD currently on O2 nasal cannula, mild acute kidney injury, and mild transaminitis along with her other medical diagnoses. She is currently being seen by medicine and infectious disease. Given her other significant medical diagnoses, we would not plan for acute surgical intervention in regards to her thoracic or lumbar spine. At this time we'll plan for bracing. A prescription has been written and will be provided to case management for a Spinomed TLSO brace. This brace will most likely be acquired and fitted tomorrow. Once this brace is delivered and fitted appropriately, patient should wear this brace while sitting upright at greater than 45, during increase activities, during ambulation. Brace does not have to or while lying in bed or while bathing. Following fitting of this brace, patient is clear for discharge from an orthopedic spine standpoint. Following discharge, patient may follow-up with Arash Duron PA-C or Dr. Darryl Hernandez at [facility]. If the patient were to fail conservative treatment, we would discuss the possibility of kyphoplasty at T8 and/or L1. Patient currently has a defibrillator in place and we are unable to obtain MRI imaging. We'll plan to obtain a nuclear medicine whole-body bone scan prior to surgical intervention to evaluate the acuteness or chronicity of her fractures at T8 and L1. Patient feels is a good plan of care. 2. Patient will continue be seen and examined by medicine and infectious disease for treatment and evaluation of her other medical diagnoses 3. Patient may continue with oral Gila 10 mg/325 mg and IV Dilaudid as prescribed as needed for pain control. Time with Patient: Greater than 30 (Including obtaining history, physical examination, reviewing of imaging, and dictation.)
--- NOTE | 2021-10-25 17:53 | P.PN ---
Subjective Progress Note Date: 10/25/21 Principal diagnosis: Pneumonia Patient is a 70-year-old female presenting to the hospital with left- sided chest pain and cough in this patient did have a CT suspicious for pneumonia possible community acquired On today's evaluation her that is 10/25/2021, the patient remains to be afebrile, the patient left-sided chest pain is controlled the patient did have cough and was unable to bring up the sputum for simple, denies any nausea no vomiting no abdominal pain no diarrhea Objective - Vital Signs Vital signs: Vital Signs Temp 98.4 F 10/25/21 14:00 Pulse 104 H 10/25/21 15:16 Resp 16 10/25/21 14:00 BP 105/57 10/25/21 14:00 Pulse Ox 93 L 10/25/21 14:00 Intake & Output 10/24/21 10/25/21 10/25/21 18:59 06:59 18:59 Intake Total 1320 Output Total 2300 1900 900 Balance -980 -1900 -900 Intake: Intake, IV Titration 50 Amount cefTRIAXone 1 gm In 50 Sodium Chloride 0.9% 50 ml @ 100 mls/hr IVPB Q24HR [facility] Rx#:[id number] Oral 1270 Output: Urine 2300 1900 900 Other: Voiding Method External Catheter External Catheter External Catheter # Voids 2 - Exam GENERAL DESCRIPTION: An elderly female lying in bed in no distress RESPIRATORY SYSTEM: Unlabored breathing , decreased breath sounds at bases HEART: S1 S2 regular rate and rhythm , ABDOMEN: Soft , no tenderness EXTREMITIES: No edema feet - Labs CBC & Chem 7: 10/25/21 04:59 10/25/21 04:59 Labs: Abnormal Lab Results - Last 24 Hours (Table) 10/25/21 10/25/21 10/25/21 Range/Units 04:59 04:59 04:59 WBC 11.80 H (4.50-10.00) X 10*3/uL RBC 3.78 L (4.10-5.20) X 10*6/uL Hgb 11.2 L (12.0-15.0) g/dL MCV 99.5 H (80.0-97.0) fL MCHC 29.8 L (32.0-37.0) g/dL Immature Gran # 0.28 H (0.00-0.04) X 10*3/uL Neutrophils # 7.95 H (1.80-7.70) X 10*3/uL Potassium 3.2 L (3.5-5.5) mmol/L BUN 5.2 L (9.0-27.0) mg/dL Est GFR (CKD-EPI)NonAf 55.6 L (60.0-200.0) BUN/Creatinine Ratio 5.19 L (12.00-20.00) Ratio Calcium 8.3 L (8.7-10.3) mg/dL Procalcitonin 0.11 H (0.02-0.09) ng/mL Microbiology - Last 24 Hours (Table) 10/22/21 20:35 Blood Culture - Preliminary Blood No Growth after 48 hours 10/22/21 20:20 Blood Culture - Preliminary Blood No Growth after 48 hours Assessment and Plan (1) Pneumonia Current Visit: Yes Status: Acute Code(s): J18.9 - PNEUMONIA, UNSPECIFIED ORGANISM SNOMED Code(s): 507926216 Plan: 1patient presented hospital with left-sided chest pain cough did have elevated white count in this patient with underlying emphysema CT did shows consolidative change in the left lung suspicious for pneumonia possible community-acquired as patient white count responded to the Rocephin and Zithromax 2- sputum for gram stain and culture has been collected and results will be followed 3-patient to continue with Rocephin and Zithromax, adjusting antibiotics on the basis of culture report
[2021-10-25] MEDS: QUEtiapine 50 MG TAB PO SCH (19:54)
[2021-10-25] MEDS: MONTELUKAST 10 MG TAB PO SCH (19:54)
[2021-10-25] MEDS: LORATADINE 10 MG TAB PO SCH (19:54)
[2021-10-25] MEDS: METOPROLOL TARTRATE 12.5 MG TAB PO SCH (19:54)
[2021-10-26] MEDS: HYDROmorphone 1 MG/ML 1 ML SYRINGE IVP PRN (00:41)
[2021-10-26] MEDS: LEVOTHYROXINE 112 MCG TAB PO SCH (05:25)
[2021-10-26] MEDS: HYDROmorphone 0.5 MG/0.5 ML SYRINGE IVP PRN (05:25)
[2021-10-26] MEDS: ALBUTEROL NEBULIZED 2.5 MG/3 ML INHALATION SCH ×4 (07:37→20:55)
[2021-10-26] MEDS: BUDESONIDE 0.5 MG/2 ML NEBU INHALATION SCH ×2 (07:37→20:55)
[2021-10-26] MEDS: HYDROcodone/APAP 10-325MG 1 EACH TAB PO PRN ×3 (08:11→18:27)
[2021-10-26] MEDS: BACLOFEN 10 MG TAB PO PRN ×2 (08:12→18:28)
[2021-10-26] MEDS: SODIUM CHLORIDE 0.9% 1,000 ML IV SCH (08:14)
[2021-10-26] MEDS: APIXABAN 5 MG TAB PO SCH ×2 (08:52→21:57)
[2021-10-26] MEDS: MULTIVITAMINS, THERA 1 EACH TAB PO SCH (08:52)
[2021-10-26] MEDS: CHOLECALCIFEROL 25 MCG (1000 IU) TABLET PO SCH (08:52)
[2021-10-26] MEDS: PANTOPRAZOLE 40 MG TABLET PO SCH (08:52)
[2021-10-26] MEDS: SERTRALINE 100 MG TAB PO SCH (08:53)
[2021-10-26] MEDS: FUROSEMIDE 40 MG TAB PO SCH (08:53)
[2021-10-26] MEDS: ASPIRIN 81 MG PO SCH (08:53)
[2021-10-26] MEDS: OXYBUTYNIN CHLORIDE 5 MG TAB PO SCH ×2 (08:53→21:57)
[2021-10-26] MEDS: POTASSIUM CHLORIDE ER 20 MEQ TAB.ER PO SCH (08:53)
[2021-10-26] MEDS: HYDROCORTISONE 10 MG TAB PO SCH ×2 (08:54→13:11)
[2021-10-26] MEDS ORDERED: KETOROLAC 15 MG/ML 1 ML VIAL IVP PRN (10:59)
[2021-10-26] MEDS ORDERED: HYDROmorphone 0.5 MG/0.5 ML SYRINGE IVP PRN (11:01)
[2021-10-26] MEDS: ONDANSETRON 4 MG/2 ML VIAL IVP PRN (11:07)
--- NOTE | 2021-10-26 11:37 | P.PN ---
Progress Note - Text Progress Note Date: 10/26/21 Orthopedic spine: History of present illness: Patient is a very pleasant 70-year-old female who is seen and examined at bedside for follow-up of compression fracture deformities at T8 and L1. Patient states she was admitted to [facility] a few weeks ago and was admitted for 5 days due to pain. She was diagnosed with the fractures at that time. She states she has a known L1 compression fracture of indeterminate age but her T8 compression fracture was newly diagnosed. She was not fitted with a brace at the time of her admission. She states she was scheduled for further evaluation with a spine surgeon in the outpatient setting but she states the day of the appointment it was icy and she was unable to make it to her vehicle to make it to the appointment. She does not recall who she was scheduled to see in the outpatient setting. She presented to [facility] on 10/22/2021 for shortness of breath. She felt some of her trouble breathing may be due to her compression fracture. During her admission she has been seen by medicine and infectious disease. She was found to have left lower lobe pneumonia and sepsis. She is currently on antibiotics with Rocephin and azithromycin. She is known have COPD is on 2 L of O2 nasal cannula while at home. She is currently on Eliquis for DVT prophylaxis. She does have a defibrillator placed. She has a history of coronary artery disease with cardiac stent placement. She also has a history of pituitary tumor with resection, history of asthma, history of previous smoking, anxiety, history of MO, mild acute kidney injury, and mild transaminitis. She has not had any change in her symptoms since being seen and examined yesterday. Patient denies any changes in her lower extremities bilaterally. She states her pain is most significant at her midthoracic spine and some of the upper lumbar spine. She denies any injuries. She states her pain is exacerbated with coughing, sneezing, and increased activities. Her pain is better controlled at rest. She states following her discharge from [facility] she has followed with her primary care provider. She has been taking White Oak 10 mg/325 mg and a muscle relaxer in the outpatient setting as prescribed for pain control by her primary care provider. She has been receiving baclofen, White Oak 10 mg/325 mg and Dilaudid for pain control during her admission does not feel her pain has been inadequately controlled. Patient has had some constipation with oral White Oak. She is currently on Colace for constipation. A prescription has been signed and given to case management to obtain a Spinomed TLSO brace. This brace is supposed to be delivered and fitted appropriately today. Physical exam: Patient is awake, alert, and oriented 3 Vital signs stable Adequate chest excursion with deep inspiration and expiration; O2 nasal cannula intact Examination of thoracic and lumbar spine reveals skin is intact with no abrasions, lacerations, or bruises; no erythema, purulence or signs of infection Significant pain with palpation along the mid thoracic spine Some pain with palpation over the upper lumbar spine Dorsiflexion, plantarflexion, and extensor hallucis longus positive sustained bilaterally She does have difficulty performing hip flexion bilaterally Patellar reflex 2+ bilaterally and Achilles reflexes 1+ bilaterally No lower extremity hyperreflexia bilaterally Straight leg test negative bilateral lower extremities Negative Lasegue's test bilaterally No signs or symptoms of DVT; no calf pain No pain with internal and external rotation of the hips bilaterally Neurovascularly intact Pertinent studies: Chest CTA taken on 10/22/2021: Wedging T8 wedging compression fracture deformity at approximately 50% height loss; L1 wedge compression fracture deformity with approximately 80% height loss; mid lower thoracic degenerative disc disease; degenerative scoliosis of the thoracic and lumbar spines; consolidation changes within the inferior aspect of the left upper lobe Assessment: T8 acute to subacute compression fracture deformity with no known injury L1 compression fracture deformity of indeterminate age with no known injury Significant thoracic pain Mild lumbar pain Thoracic and lumbar degenerative scoliosis Midthoracic degenerative disc disease COPD on 2 L O2 nasal cannula in the outpatient setting Sepsis Left lower lobe pneumonia currently on antibiotics History of defibrillator placement History of coronary artery disease with cardiac stent placement Anticoagulation use with Eliquis History of myocardial infarction History of smoking History of pituitary tumor with resection History of asthma Anxiety Mild acute kidney injury Mild transaminitis Opioid-induced constipation Plan: 1. We will continue with our plan as set forth yesterday. Today patient is seen and examined at the bedside by myself and Dr. Darryl Hernandez. After reviewing of imaging, physical examination the patient, and further discussion with the patient, will currently plan to continue with conservative treatment at this time. Reviewing of CTA imaging of the chest does show evidence of compression fracture deformities at T8 and L1. Patient has reported the T8 was a new compression fracture deformity while the L1 compression fracture deformity may be chronic. We do not have previous imaging to compare these fractures. On physical examination she does have significant pain in her thoracic spine with some pain in her lumbar spine as well. We did discuss she has significant other medical diagnoses including sepsis, left lower lobe pneumonia currently on antibiotics, COPD currently on O2 nasal cannula, mild acute kidney injury, and mild transaminitis along with her other medical diagnoses. She is currently being seen by medicine and infectious disease. Given her other significant medical diagnoses, we would not plan for acute surgical intervention in regards to her thoracic or lumbar spine. At this time we'll plan for bracing. A prescription has been written and will be provided to case management for a Spinomed TLSO brace. This brace has been given to case management and the brace is scheduled to be delivered and fitted appropriately today. Once this brace is delivered and fitted appropriately, patient should wear this brace while sitting upright at greater than 45, during increase activities, during ambulation. Brace does not have to or while lying in bed or while bathing. Patient should avoid excessive activities with her thoracic and lumbar spines. She may transfer to a bedside chair and ambulate to the restroom but should avoid working with formal physical therapy or other increased activities until her Spinomed TLSO brace is delivered and fitted appropriately. Following fitting of this brace, patient is clear for discharge from an orthopedic spine standpoint. Following discharge, patient may follow-up with Arash Duron PA-C or Dr. Darryl Hernandez at [facility]. If the patient were to fail conservative treatment, we would discuss the possibility of kyphoplasty at T8 and/or L1. Patient currently has a defib rillator in place and we are unable to obtain MRI imaging. We'll plan to obtain a nuclear medicine whole-body bone scan prior to surgical intervention to evaluate the acuteness or chronicity of her fractures at T8 and L1. Patient feels is a good plan of care. 2. Patient will continue be seen and examined by medicine and infectious disease for treatment and evaluation of her other medical diagnoses 3. Patient may continue with oral White Oak 10 mg/325 mg and IV Dilaudid as prescribed as needed for pain control. We will plan to prescribe Toradol 50 mg IVPB every 8 hours as needed for breakthrough pain up to 3 doses.
--- NOTE | 2021-10-26 11:41 | CDI ---
Documentation Clarification Form Date: 10/26/2021 11:21:50 AM From: Yoselin Youngblood RN, CCDS Admit Date: 10/22/2021 10:55:00 PM Patient Name: Azul Laughlin Visit Number: [id number] Discharge Date: ATTENTION: The Clinical Documentation Specialists (CDI) and [facility] Coding Staff appreciate your assistance in clarifying documentation. Please respond to the clarification below the line at the bottom and electronically sign. The CDI & [facility] Coding staff will review the response and follow-up if needed. Please note: Queries are made part of the Legal Health Record. If you have any questions, please contact the author of this message via ITS. Dr. Blair Perkins Your patient has history of Asthma and COPD uses O2 @ 2 liters NC. Based on this information and the findings below, is there an additional diagnosis that is clinically appropriate for this patient? History/Risk Factors: Asthma, COPD, Congestive heart failure Tobacco use: Former smoker Home oxygen: 2/L NC Clinical Indicators: 70-year-old female in moderate distress secondary to shortness of breath and upper back pain on presentation to ED. 10/22 vital sign: 133/76 108 22 97.5 94 % 2/L NC, 116/89 22 95 % 2/L NC Lung/Breathing assessment: respiratory distress, chest wall tenderness. 10/22 CXR: showed hazy opacities within the left lung base are new from prior may represent atelectasis and evolving airspace disease. COPD changes. 10/22 CT angiogram: Consolidation changes within the inferior aspect of the left upper lobe superimposed on emphysema changes correlate for pneumonia. Compression deformities of T8 and L1 of at least 70 % and near complete height loss of L1, appears to be chronic. 10/22 Labs WBC 14.3 Treatment: Telemetry monitoring Monitor O2 Sat's (titrate) Breathing tx: Ventolin Nebulized inhalation 2.5 mg QID, Pulmicort 0.5 MG Inhalation BID Lasix 40 MG PO Daily, hydrocortisone 15MG PO W/BRK, 5 MG W/Lunch; Claritin 10 MG PO HS Is there an additional diagnosis that is clinically appropriate for this patient? [ ] Acute on Chronic Hypoxic respiratory failure [ x ] Chronic Hypoxic Respiratory Failure [ ] Other Diagnosis, please specify [ ] Unable to determine (Template Last Revised: September 2020) MTDD
--- NOTE | 2021-10-26 21:15 | P.PN ---
Subjective Progress Note Date: 10/26/21 Principal diagnosis: Pneumonia Patient is a 70-year-old female presenting to the hospital with left- sided chest pain and cough in this patient did have a CT suspicious for pneumonia possible community acquired On today's evaluation her that is 10/26/2021, the patient denies any fever or any chills, the patient has been complaining of left-sided chest pain and across the back area, the patient did have cough and with minimal sputum, the patient denies having any nausea vomiting abdominal pain no diarrhea Objective - Vital Signs Vital signs: Vital Signs Temp 98.3 F 10/26/21 08:00 Pulse 98 10/26/21 11:49 Resp 22 10/26/21 08:00 BP 106/69 10/26/21 08:00 Pulse Ox 93 L 10/26/21 08:00 Intake & Output 10/25/21 10/26/21 10/26/21 18:59 06:59 18:59 Intake Total 1270 855 Output Total 900 550 Balance 370 -550 855 Intake: Intake, IV Titration 75 Amount Sodium Chloride 0.9% 1, 75 000 ml @ 75 mls/hr IV . [id number] [facility] Rx#:[id number] Oral 1270 780 Output: Urine 900 550 Other: Voiding Method External Catheter External Catheter External Catheter - Exam GENERAL DESCRIPTION: An elderly female lying in bed in no distress RESPIRATORY SYSTEM: Unlabored breathing , decreased breath sounds at bases HEART: S1 S2 regular rate and rhythm , ABDOMEN: Soft , no tenderness EXTREMITIES: No edema feet - Labs CBC & Chem 7: 10/25/21 04:59 10/25/21 04:59 Labs: Microbiology - Last 24 Hours (Table) 10/25/21 15:05 Gram Stain - Preliminary Sputum Sputum Culture - Preliminary 10/22/21 20:20 Blood Culture - Preliminary Blood No Growth after 72 hours 10/22/21 20:35 Blood Culture - Preliminary Blood No Growth after 72 hours Assessment and Plan (1) Pneumonia Current Visit: Yes Status: Acute Code(s): J18.9 - PNEUMONIA, UNSPECIFIED ORGANISM SNOMED Code(s): 659703266 Plan: 1patient presented hospital with left-sided chest pain cough did have elevated white count in this patient with underlying emphysema CT did shows consolidative change in the left lung suspicious for pneumonia possible community-acquired as patient white count responded to the Rocephin and Zithromax 2- sputum for gram stain and culture has been collected and cultures are currently pending her finalize blood culture has been negative 3-patient seemed to have some clinical improvement and will continue with Rocephin and Zithromax, adjusting antibiotics on the basis of culture report Time with Patient: Less than 30
[2021-10-26] MEDS: LORATADINE 10 MG TAB PO SCH (21:57)
[2021-10-26] MEDS: QUEtiapine 50 MG TAB PO SCH (21:57)
[2021-10-26] MEDS: METOPROLOL TARTRATE 12.5 MG TAB PO SCH (21:57)
[2021-10-26] MEDS: MONTELUKAST 10 MG TAB PO SCH (21:57)
--- NOTE | 2021-10-26 22:46 | P.PN ---
Subjective Progress Note Date: 10/24/21 Patient is a 70-year-old female with known history of asthma/COPD, history MS, on home oxygen at 2 L via nasal cannula, history of pituitary tumor status post resection, chronic renal insufficiency, coronary artery disease with history of stent placement, anxiety and appears active smoking and other multiple medical problems came to the ER with complaints of upper back pain. Patient states that she has a T8 compression fracture which was found during recent admission. Due to severe pain patient was also having trouble breathing and and was having shortness of breath due to severe pain. She was recently admitted to [facility] last week and was released after a 5-day stay. Apparently as per her daughter patient is not taking able to take care of herself at home with the back surgery. Patient is on Corona tens every 4 hourly at home. No complaints of chest pain. No nausea vomiting abdominal pain or diarrhea. No cough or sputum production. Patient has been afebrile. Chest x-ray showed hazy opacities within the left lung base are new from prior may represent atelectasis and evolving airspace disease. COPD changes CT angiogram of the chest was done due to sharp pain showed no evidence of PE. Consolidation changes within the inferior aspect of the left upper lobe ashton perimposed on emphysema changes correlate for pneumonia. Compression deformities of T8 and L1 of at least 70% and near complete height loss of L1. L1 . appears to be chronic. Laboratory data showed WBC 14.3 hemoglobin 14.5 and platelets 203 and neutrophils 12 Sodium 138 chloride 107 bicarb is 24 BUN 18 and creatinine 1.25 Calcium 8.1 magnesium 2.5 AST 59 ALT 38 alk phos 124 troponin less than 0.012 proBNP 890 Coronavirus PCR not detected Lactic acid 2.4 and CRP 15.6 10/24/2021 Patient is currently resting in the bed. Awake alert and oriented x3. Still complains of back pain requiring IV pain medications. Patient does have cough and unable to bring out any sputum. No nausea vomiting or abdominal pain. Tolerating oral diet slowly. No fever no chills. Laboratory data showed BUN 39 creatinine 1.13 AST 41 ALT 35. ID is on board. Patient is being current on antibiotics in the form of ce ftriaxone and. Anticoagulation in the form of Eliquis. Cultures have been negative so far. Current medications reviewed.. Objective - Vital Signs Vital signs: Vital Signs Temp 98.1 F 10/24/21 08:00 Pulse 92 10/24/21 11:15 Resp 18 10/24/21 08:00 BP 111/67 10/24/21 08:00 Pulse Ox 92 L 10/24/21 08:00 Intake & Output 10/23/21 10/24/21 10/24/21 18:59 06:59 18:59 Intake Total 50 Balance 50 Intake: Intake, IV Titration 50 Amount cefTRIAXone 1 gm In 50 Sodium Chloride 0.9% 50 ml @ 100 mls/hr IVPB Q24HR [facility] Rx#:[id number] Other: Voiding Method Toilet Bedside Commode External Catheter # Voids 6 1 2 - Exam PHYSICAL EXAMINATION: Patient is lying in the bed comfortably, no acute distress, awake alert and oriented.. HEENT: Normocephalic. Neck is supple. Pupils reactive. Nostrils clear. Oral cavity is moist. Neck reveals no JVD, carotid bruits, or thyromegaly. CHEST EXAMINATION: Trachea is central. Symmetrical expansion. Bibasilar diminished sounds otherwise Lung carrion clear to auscultation and percussion. CARDIAC: Normal S1, S2 with no gallops. No murmurs ABDOMEN: Soft. Bowel sounds normal. No organomegaly. No abdominal bruits. Extremities: reveal no edema. No clubbing or cyanosis Neurologically awake, alert, oriented x3 with well-coordinated movements. No focal deficits noted Skin: No rash or skin lesions. Psychiatric: Coperative. Nonsuicidal Musculoskeletal: No joint swelling or deformity. Normal range of motion. - Labs CBC & Chem 7: 10/25/21 04:59 10/25/21 04:59 Labs: Abnormal Lab Results - Last 24 Hours (Table) 10/23/21 Range/Units 16:57 POC Glucose (mg/dL) 139 H (75-99) mg/dL Microbiology - Last 24 Hours (Table) 10/22/21 20:20 Blood Culture - Preliminary Blood No Growth after 24 hours 10/22/21 20:35 Blood Culture - Preliminary Blood No Growth after 24 hours Assessment and Plan Assessment: Acute on chronic back pain with T8 compression fracture. Changes seem to be chronic as per CTA chest. Left lower lobe pneumonia Sepsis secondary to above Mild acute kidney injury likely prerenal Mild transaminitis History MS Coronary disease with history of stent placement COPD on home oxygen at 2 L via nasal cannula History of pituitary tumor s/p resection. On Cortef Right eye blindness Anxiety Previous history of smoking DVT prophylaxis on Eliquis already. Plan: Patient will be continued on pain management with Dilaudid IV and gradually transition to by mouth. Continue with antibiotics ceftriaxone and azithromycin. Repeat chest x-ray showed left lower lobe infiltrate. Current with home medications and follow-up closely. ID is following. PT OT consulted. Prognosis is patient may need guarded. Patient may need rehab transfer. Time with Patient: Greater than 30
--- NOTE | 2021-10-26 22:47 | P.PN ---
Subjective Progress Note Date: 10/25/21 Patient is a 70-year-old female with known history of asthma/COPD, history RI, on home oxygen at 2 L via nasal cannula, history of pituitary tumor status post resection, chronic renal insufficiency, coronary artery disease with history of stent placement, anxiety and appears active smoking and other multiple medical problems came to the ER with complaints of upper back pain. Patient states that she has a T8 compression fracture which was found during recent admission. Due to severe pain patient was also having trouble breathing and and was having shortness of breath due to severe pain. She was recently admitted to [facility] last week and was released after a 5-day stay. Apparently as per her daughter patient is not taking able to take care of herself at home with the back surgery. Patient is on Marcellus tens every 4 hourly at home. No complaints of chest pain. No nausea vomiting abdominal pain or diarrhea. No cough or sputum production. Patient has been afebrile. Chest x-ray showed hazy opacities within the left lung base are new from prior may represent atelectasis and evolving airspace disease. COPD changes CT angiogram of the chest was done due to sharp pain showed no evidence of PE. Consolidation changes within the inferior aspect of the left upper lobe ashton perimposed on emphysema changes correlate for pneumonia. Compression deformities of T8 and L1 of at least 70% and near complete height loss of L1. L1 . appears to be chronic. Laboratory data showed WBC 14.3 hemoglobin 14.5 and platelets 203 and neutrophils 12 Sodium 138 chloride 107 bicarb is 24 BUN 18 and creatinine 1.25 Calcium 8.1 magnesium 2.5 AST 59 ALT 38 alk phos 124 troponin less than 0.012 proBNP 890 Coronavirus PCR not detected Lactic acid 2.4 and CRP 15.6 10/24/2021 Patient is currently resting in the bed. Awake alert and oriented x3. Still complains of back pain requiring IV pain medications. Patient does have cough and unable to bring out any sputum. No nausea vomiting or abdominal pain. Tolerating oral diet slowly. No fever no chills. Laboratory data showed BUN 39 creatinine 1.13 AST 41 ALT 35. ID is on board. Patient is being current on antibiotics in the form of ce ftriaxone and. Anticoagulation in the form of Eliquis. Cultures have been negative so far. 10/25/2021 Patient is lying bed. Awake alert oriented x3. Afebrile. Current on antibiotics now on ceftriaxone. Patient does have cough. Also complaining of shortness of breath. No nausea vomiting abdominal pain or diarrhea. Patient was seen by orthopedic surgery and back brace was ordered. Continued pain management with Dilaudid. Cultures have been negative. Laboratory data showed WBC 11.8 hemoglobin 11.2 and platelets 208 sodium 145 potassium 3.2 chloride 108 bicarb is 24.3 BUN 5.1 creatinine 1.0 procalcitonin level is 0.11. Legionella urine antigen negative. ID is on board. Current medications reviewed.. Objective - Vital Signs Vital signs: Vital Signs Temp 98.0 F 10/25/21 19:32 Pulse 100 10/25/21 20:20 Resp 20 10/25/21 20:20 BP 123/72 10/25/21 19:32 Pulse Ox 97 10/25/21 19:32 Intake & Output 10/25/21 10/25/21 10/26/21 06:59 18:59 06:59 Intake Total 1270 Output Total 1900 900 400 Balance -1900 370 -400 Intake: Oral 1270 Output: Urine 1900 900 400 Other: Voiding Method External Catheter External Catheter External Catheter - Exam PHYSICAL EXAMINATION: Patient is lying in the bed comfortably, no acute distress, awake alert and oriented.. HEENT: Normocephalic. Neck is supple. Pupils reactive. Nostrils clear. Oral cavity is moist. Neck reveals no JVD, carotid bruits, or thyromegaly. CHEST EXAMINATION: Trachea is central. Symmetrical expansion. Bibasilar diminished sounds otherwise Lung carrion clear to auscultation and percussion. CARDIAC: Normal S1, S2 with no gallops. No murmurs ABDOMEN: Soft. Bowel sounds normal. No organomegaly. No abdominal bruits. Extremities: reveal no edema. No clubbing or cyanosis Neurologically awake, alert, oriented x3 with well-coordinated movements. No focal deficits noted Skin: No rash or skin lesions. Psychiatric: Coperative. Nonsuicidal Musculoskeletal: No joint swelling or deformity. Normal range of motion. - Labs CBC & Chem 7: 10/25/21 04:59 10/25/21 04:59 Labs: Abnormal Lab Results - Last 24 Hours (Table) 10/25/21 10/25/21 10/25/21 Range/Units 04:59 04:59 04:59 WBC 11.80 H (4.50-10.00) X 10*3/uL RBC 3.78 L (4.10-5.20) X 10*6/uL Hgb 11.2 L (12.0-15.0) g/dL MCV 99.5 H (80.0-97.0) fL MCHC 29.8 L (32.0-37.0) g/dL Immature Gran # 0.28 H (0.00-0.04) X 10*3/uL Neutrophils # 7.95 H (1.80-7.70) X 10*3/uL Potassium 3.2 L (3.5-5.5) mmol/L BUN 5.2 L (9.0-27.0) mg/dL Est GFR (CKD-EPI)NonAf 55.6 L (60.0-200.0) BUN/Creatinine Ratio 5.19 L (12.00-20.00) Ratio Calcium 8.3 L (8.7-10.3) mg/dL Procalcitonin 0.11 H (0.02-0.09) ng/mL Microbiology - Last 24 Hours (Table) 10/22/21 20:35 Blood Culture - Preliminary Blood No Growth after 72 hours 10/22/21 20:20 Blood Culture - Preliminary Blood No Growth after 48 hours Assessment and Plan Assessment: Acute on chronic back pain with T8 compression fracture. Changes seem to be chronic as per CTA chest. Left lower lobe pneumonia Sepsis secondary to above Mild acute kidney injury likely prerenal Mild transaminitis History RI Coronary disease with history of stent placement COPD on home oxygen at 2 L via nasal cannula History of pituitary tumor s/p resection. On Cortef Right eye blindness Anxiety Previous history of smoking DVT prophylaxis on Eliquis already. Plan: Patient will be continued on pain management with Dilaudid IV and gradually transition to by mouth. Continue with antibiotics ceftriaxone and azithromycin. Repeat chest x-ray showed left lower lobe infiltrate. Current with home medications and follow-up closely. ID is following. PT OT consulted. Prognosis is patient may need guarded. Patient may need rehab transfer. Time with Patient: Greater than 30
--- NOTE | 2021-10-26 22:50 | P.PN ---
Subjective Progress Note Date: 10/26/21 Patient is a 70-year-old female with known history of asthma/COPD, history TX, on home oxygen at 2 L via nasal cannula, history of pituitary tumor status post resection, chronic renal insufficiency, coronary artery disease with history of stent placement, anxiety and appears active smoking and other multiple medical problems came to the ER with complaints of upper back pain. Patient states that she has a T8 compression fracture which was found during recent admission. Due to severe pain patient was also having trouble breathing and and was having shortness of breath due to severe pain. She was recently admitted to [facility] last week and was released after a 5-day stay. Apparently as per her daughter patient is not taking able to take care of herself at home with the back surgery. Patient is on [place] tens every 4 hourly at home. No complaints of chest pain. No nausea vomiting abdominal pain or diarrhea. No cough or sputum production. Patient has been afebrile. Chest x-ray showed hazy opacities within the left lung base are new from prior may represent atelectasis and evolving airspace disease. COPD changes CT angiogram of the chest was done due to sharp pain showed no evidence of PE. Consolidation changes within the inferior aspect of the left upper lobe ashton perimposed on emphysema changes correlate for pneumonia. Compression deformities of T8 and L1 of at least 70% and near complete height loss of L1. L1 . appears to be chronic. Laboratory data showed WBC 14.3 hemoglobin 14.5 and platelets 203 and neutrophils 12 Sodium 138 chloride 107 bicarb is 24 BUN 18 and creatinine 1.25 Calcium 8.1 magnesium 2.5 AST 59 ALT 38 alk phos 124 troponin less than 0.012 proBNP 890 Coronavirus PCR not detected Lactic acid 2.4 and CRP 15.6 10/24/2021 Patient is currently resting in the bed. Awake alert and oriented x3. Still complains of back pain requiring IV pain medications. Patient does have cough and unable to bring out any sputum. No nausea vomiting or abdominal pain. Tolerating oral diet slowly. No fever no chills. Laboratory data showed BUN 39 creatinine 1.13 AST 41 ALT 35. ID is on board. Patient is being current on antibiotics in the form of ce ftriaxone and. Anticoagulation in the form of Eliquis. Cultures have been negative so far. 10/25/2021 Patient is lying bed. Awake alert oriented x3. Afebrile. Current on antibiotics now on ceftriaxone. Patient does have cough. Also complaining of shortness of breath. No nausea vomiting abdominal pain or diarrhea. Patient was seen by orthopedic surgery and back brace was ordered. Continued pain management with Dilaudid. Cultures have been negative. Laboratory data showed WBC 11.8 hemoglobin 11.2 and platelets 208 sodium 145 potassium 3.2 chloride 108 bicarb is 24.3 BUN 5.1 creatinine 1.0 procalcitonin level is 0.11. Legionella urine antigen negative. ID is on board. 10/26/2020 Patient is complaining of back pain and shortness of breath. Unable to get herself out of the bed. PT OT was consulted. Patient does have cough with minimal sputum production. No nausea vomiting abdo mariela pain or diarrhea. No fever no chills currently requiring oxygen at 2 L via nasal cannula. Laboratory data reviewed. Orthopedic surgery and ID is on board. Sputum cultures and blood cultures have been negative. PT OT is on board and possible discharge to rehab. Current medications reviewed.. Objective - Vital Signs Vital signs: Vital Signs Temp 98.6 F 10/26/21 21:56 Pulse 72 10/26/21 21:56 Resp 18 10/26/21 21:56 BP 102/62 10/26/21 21:56 Pulse Ox 94 L 10/26/21 21:56 Intake & Output 10/26/21 10/26/21 10/27/21 06:59 18:59 06:59 Intake Total 855 Output Total 550 750 Balance -550 105 Intake: Intake, IV Titration 75 Amount Sodium Chloride 0.9% 1, 75 000 ml @ 75 mls/hr IV . [id number] [facility] Rx#:[id number] Oral 780 Output: Urine 550 750 Other: Voiding Method External Catheter External Catheter # Bowel Movements 1 - Exam PHYSICAL EXAMINATION: Patient is lying in the bed comfortably, no acute distress, awake alert and oriented.. HEENT: Normocephalic. Neck is supple. Pupils reactive. Nostrils clear. Oral cavity is moist. Neck reveals no JVD, carotid bruits, or thyromegaly. CHEST EXAMINATION: Trachea is central. Symmetrical expansion. Bibasilar diminished sounds otherwise Lung carrion clear to auscultation and percussion. CARDIAC: Normal S1, S2 with no gallops. No murmurs ABDOMEN: Soft. Bowel sounds normal. No organomegaly. No abdominal bruits. Extremities: reveal no edema. No clubbing or cyanosis Neurologically awake, alert, oriented x3 with well-coordinated movements. No focal deficits noted Skin: No rash or skin lesions. Psychiatric: Coperative. Nonsuicidal Musculoskeletal: No joint swelling or deformity. Normal range of motion. - Labs CBC & Chem 7: 10/25/21 04:59 10/25/21 04:59 Labs: Microbiology - Last 24 Hours (Table) 10/25/21 15:05 Gram Stain - Preliminary Sputum Sputum Culture - Preliminary 10/22/21 20:20 Blood Culture - Preliminary Blood No Growth after 72 hours 10/22/21 20:35 Blood Culture - Preliminary Blood No Growth after 72 hours Assessment and Plan Assessment: Acute on chronic back pain with T8 compression fracture. Changes seem to be chronic as per CTA chest.Patient was seen by orthopedic surgery. Continued on pain management and back brace. Left lower lobe pneumonia Sepsis secondary to above Mild acute kidney injury likely prerenal Mild transaminitis History TX Coronary disease with history of stent placement COPD on home oxygen at 2 L via nasal cannula History of pituitary tumor s/p resection. On Cortef Right eye blindness Anxiety Previous history of smoking DVT prophylaxis on Eliquis already. Plan: Patient will be continued on pain management with Dilaudid IV and gradually transition to by mouth. Continue with antibiotics ceftriaxone and azithromycin. Repeat chest x-ray showed left lower lobe infiltrate. Current with home medications and follow-up closely. ID is following. PT OT consulted. Prognosis is patient may need guarded. Patient may need rehab transfer. Time with Patient: Greater than 30
[2021-10-27] MEDS: LEVOTHYROXINE 112 MCG TAB PO SCH (05:05)
[2021-10-27] MEDS: HYDROcodone/APAP 10-325MG 1 EACH TAB PO PRN ×3 (05:58→17:11)
[2021-10-27] MEDS: BACLOFEN 10 MG TAB PO PRN ×2 (05:58→12:15)
[2021-10-27] MEDS: ALBUTEROL NEBULIZED 2.5 MG/3 ML INHALATION SCH ×4 (08:18→21:03)
[2021-10-27] MEDS: BUDESONIDE 0.5 MG/2 ML NEBU INHALATION SCH ×2 (08:18→21:03)
[2021-10-27] MEDS: HYDROCORTISONE 10 MG TAB PO SCH ×2 (08:22→12:14)
[2021-10-27] MEDS: OXYBUTYNIN CHLORIDE 5 MG TAB PO SCH ×2 (08:22→20:03)
[2021-10-27] MEDS: MULTIVITAMINS, THERA 1 EACH TAB PO SCH (08:23)
[2021-10-27] MEDS: SERTRALINE 100 MG TAB PO SCH (08:23)
[2021-10-27] MEDS: PANTOPRAZOLE 40 MG TABLET PO SCH (08:23)
[2021-10-27] MEDS: APIXABAN 5 MG TAB PO SCH ×2 (08:23→20:03)
[2021-10-27] MEDS: ASPIRIN 81 MG PO SCH (08:23)
[2021-10-27] MEDS: POTASSIUM CHLORIDE ER 20 MEQ TAB.ER PO SCH (08:23)
[2021-10-27] MEDS: CHOLECALCIFEROL 25 MCG (1000 IU) TABLET PO SCH (08:25)
[2021-10-27] MEDS ORDERED: POTASSIUM CHLORIDE ER 20 MEQ TAB.ER PO STA (08:57)
[2021-10-27] MEDS: FUROSEMIDE 40 MG TAB PO SCH (09:01)
--- NOTE | 2021-10-27 09:02 | P.PN ---
Progress Note - Text Progress Note Date: 10/27/21 Orthopedic spine: History of present illness: Patient is a very pleasant 70-year-old female who is seen and examined at bedside for follow-up of compression fracture deformities at T8 and L1. Patient states she was admitted to [facility] a few weeks ago and was admitted for 5 days due to pain. She was diagnosed with the fractures at that time. She states she has a known L1 compression fracture of indeterminate age but her T8 compression fracture was newly diagnosed. She was not fitted with a brace at the time of her admission. She states she was scheduled for further evaluation with a spine surgeon in the outpatient setting but she states the day of the appointment it was icy and she was unable to make it to her vehicle to make it to the appointment. She does not recall who she was scheduled to see in the outpatient setting. She presented to [facility] on 10/22/2021 for shortness of breath. She felt some of her trouble breathing may be due to her compression fracture. During her admission she has been seen by medicine and infectious disease. She was found to have left lower lobe pneumonia and sepsis. She is currently on antibiotics with Rocephin and azithromycin. She is known have COPD is on 2 L of O2 nasal cannula while at home. She is currently on Eliquis for DVT prophylaxis. She does have a defibrillator placed. She has a history of coronary artery disease with cardiac stent placement. She also has a history of pituitary tumor with resection, history of asthma, history of previous smoking, anxiety, history of NE, mild acute kidney injury, and mild transaminitis. Since being seen and examined yesterday, her TLSO brace has been delivered and fitted appropriately. She states her pain is better controlled but she does continue to have some mid thoracic spine pain and some upper lumbar pain. Nursing states patient has been able to dramatically reduce her narcotic intake. Patient denies any changes in her lower extremities bilaterally. She denies any injuries. She states her pain is exacerbated with coughing, sneezing, and increased activities. Her pain is better controlled at rest. She states following her discharge from [facility] she has followed with her primary care provider. She has been taking [place] 10 mg/325 mg and a muscle relaxer in the outpatient setting as prescribed for pain control by her primary care provider. She has been receiving baclofen, [place] 10 mg/325 mg and Dilaudid for pain control during her admission and was prescribed Toradol for breakthrough pain. Nursing states patient is currently planning for discharge today to a rehabilitation facility. Physical exam: Patient is awake, alert, and oriented 3; patient is lying comfortably in bed Vital signs stable Adequate chest excursion with deep inspiration and expiration; O2 nasal cannula intact Dorsiflexion, plantarflexion, and extensor hallucis longus positive sustained bilaterally She does have difficulty performing hip flexion bilaterally Patellar reflex 2+ bilaterally and Achilles reflexes 1+ bilaterally No lower extremity hyperreflexia bilaterally Straight leg test negative bilateral lower extremities Negative Lasegue's test bilaterally No signs or symptoms of DVT; no calf pain No pain with internal and external rotation of the hips bilaterally Neurovascularly intact Pertinent studies: Chest CTA taken on 10/22/2021: Wedging T8 wedging compression fracture deformity at approximately 50% height loss; L1 wedge compression fracture deformity with approximately 80% height loss; mid lower thoracic degenerative disc disease; degenerative scoliosis of the thoracic and lumbar spines; consolidation changes within the inferior aspect of the left upper lobe Assessment: T8 acute to subacute compression fracture deformity with no known injury L1 compression fracture deformity of indeterminate age with no known injury Significant thoracic pain Mild lumbar pain Thoracic and lumbar degenerative scoliosis Midthoracic degenerative disc disease COPD on 2 L O2 nasal cannula in the outpatient setting Sepsis Left lower lobe pneumonia currently on antibiotics History of defibrillator placement History of coronary artery disease with cardiac stent placement Anticoagulation use with Eliquis History of myocardial infarction History of smoking History of pituitary tumor with resection History of asthma Anxiety Mild acute kidney injury Mild transaminitis Opioid-induced constipation Plan: 1. We will continue with our plan as set forth yesterday. After reviewing of imaging, physical examination the patient, and further discussion with the patient, will currently plan to continue with conservative treatment at this time. Reviewing of CTA imaging of the chest does show evidence of compression fracture deformities at T8 and L1. Patient has reported the T8 was a new compression fracture deformity while the L1 compression fracture deformity may be chronic. We do not have previous imaging to compare these fractures. On physical examination she does have significant pain in her thoracic spine with some pain in her lumbar spine as well. We did discuss she has significant other medical diagnoses including sepsis, left lower lobe pneumonia currently on antibiotics, COPD currently on O2 nasal cannula, mild acute kidney injury, and mild transaminitis along with her other medical diagnoses. She is currently being seen by medicine and infectious disease. Given her other significant medical diagnoses, we would not plan for acute surgical intervention in regards to her thoracic or lumbar spine. At this time we'll plan for bracing. A prescription has been written and will be provided to case management for a Spinomed TLSO brace. This brace has been given to case management and the brace was delivered and fitted appropriately yesterday. Once this brace is delivered and fitted appropriately, patient should wear this brace while sitting upright at greater than 45, during increase activities, during ambulation. Brace does not have to or while lying in bed or while bathing. Patient should avoid excessive activities with her thoracic and lumbar spines. Following fitting of this brace, patient is clear for discharge from an orthopedic spine standpoint. Following discharge, patient may follow-up with Arash Duron PA-C or Dr. Darryl Hernandez at [facility]. If the patient were to fail conservative treatment, we would discuss the possibility of kyphoplasty at T8 and/or L1. Patient currently has a defibrillator in place and we are unable to obtain MRI imaging. We'll plan to obtain a nuclear medicine whole-body bone scan prior to surgical intervention to evaluate the acuteness or chronicity of her fractures at T8 and L1. Patient feels is a good plan of care. 2. Patient will continue be seen and examined by medicine and infectious disease for treatment and evaluation of her other medical diagnoses 3. Patient may continue with oral [place] 10 mg/325 mg and IV Dilaudid as prescribed as needed for pain control. We will plan to prescribe Toradol 50 mg IVPB every 8 hours as needed for breakthrough pain up to 3 doses.
[2021-10-27 09:15] LABS: Basophils # (A) 0.05 X 10*3/uL (0.00-0.10); Basophils % (A) 0.4 %; Eosinophils # (A) 0.06 X 10*3/uL (0.04-0.35); Eosinophils % (A) 0.5 %; HCT 35.2 % (37.2-46.3); HGB 10.8 g/dL (12.0-15.0); Immature Grans, Automated 1.8 %; Lymphocytes # (A) 2.13 X 10*3/uL (0.90-5.00); Lymphocytes % (A) 16.4 %; MCH 30.3 pg (27.0-32.0); MCHC 30.7 g/dL (32.0-37.0); MCV 98.9 fL (80.0-97.0); Mean Platelet Volume 11.5 fL (9.5-12.2); Monocytes # (A) 0.68 X 10*3/uL (0.20-1.00); Monocytes % (A) 5.2 %; NRBC Per 100 WBC 0 /100 WBCS (0.0-0.0); Neutrophils # (A) 9.84 X 10*3/uL (1.80-7.70); Neutrophils % (A) 75.7 %; Platelet Count 222 X 10*3/uL (140-440); RBC 3.56 X 10*6/uL (4.10-5.20); RDW 14.6 % (11.5-14.5); WBC 12.99 X 10*3/uL (4.50-10.00)
[2021-10-27 09:39] LABS: African American GFR (CKD) 56.8 (60.0-200.0); Anion Gap 11.5 mmol/L (10.00-18.00); BUN/Creat Ratio 10.89 Ratio (12.00-20.00); Blood Urea Nitrogen 12.2 mg/dL (9.0-27.0); Calcium 8.3 mg/dL (8.7-10.3); Carbon Dioxide 25.3 mmol/L (20.0-27.5); Potassium 3.6 mmol/L (3.5-5.5)
[2021-10-27] MEDS: ONDANSETRON 4 MG/2 ML VIAL IVP PRN (10:06)
[2021-10-27] MEDS: MONTELUKAST 10 MG TAB PO SCH (20:02)
[2021-10-27] MEDS: METOPROLOL TARTRATE 12.5 MG TAB PO SCH (20:03)
[2021-10-27] MEDS: QUEtiapine 50 MG TAB PO SCH (20:03)
[2021-10-27] MEDS: LORATADINE 10 MG TAB PO SCH (20:03)
--- NOTE | 2021-10-27 21:20 | P.PN ---
Subjective Progress Note Date: 10/27/21 Principal diagnosis: Pneumonia Patient is a 70-year-old female presenting to the hospital with left- sided chest pain and cough in this patient did have a CT suspicious for pneumonia possible community acquired On today's evaluation her that is 10/27/2021, the patient remains to be afebrile, the patient is previous study comfortably, cough is decreased intensity not bringing up any sputum no nausea no vomiting no abdominal pain no diarrhea Objective - Vital Signs Vital signs: Vital Signs Temp 97.8 F 10/27/21 06:52 Pulse 94 10/27/21 11:54 Resp 16 10/27/21 06:52 BP 105/62 10/27/21 06:52 Pulse Ox 92 L 10/27/21 06:52 Intake & Output 10/26/21 10/27/21 10/27/21 18:59 06:59 18:59 Intake Total 855 Output Total 750 50 Balance 105 -50 Intake: Intake, IV Titration 75 Amount Sodium Chloride 0.9% 1, 75 000 ml @ 75 mls/hr IV . [id number] [facility] Rx#:[id number] Oral 780 Output: Urine 750 Emesis 50 Other: Voiding Method External Catheter Diaper Incontinent # Voids 3 2 # Bowel Movements 1 1 1 - Exam GENERAL DESCRIPTION: An elderly female lying in bed in no distress RESPIRATORY SYSTEM: Unlabored breathing , decreased breath sounds at bases HEART: S1 S2 regular rate and rhythm , ABDOMEN: Soft , no tenderness EXTREMITIES: No edema feet - Labs CBC & Chem 7: 10/27/21 05:01 10/27/21 05:01 Labs: Abnormal Lab Results - Last 24 Hours (Table) 10/27/21 10/27/21 Range/Units 05:01 05:01 WBC 12.99 H (4.50-10.00) X 10*3/uL RBC 3.56 L (4.10-5.20) X 10*6/uL Hgb 10.8 L (12.0-15.0) g/dL Hct 35.2 L (37.2-46.3) % MCV 98.9 H (80.0-97.0) fL MCHC 30.7 L (32.0-37.0) g/dL RDW 14.6 H (11.5-14.5) % Immature Gran # 0.23 H (0.00-0.04) X 10*3/uL Neutrophils # 9.84 H (1.80-7.70) X 10*3/uL Est GFR (CKD-EPI)AfAm 56.8 L (60.0-200.0) Est GFR (CKD-EPI)NonAf 49.0 L (60.0-200.0) BUN/Creatinine Ratio 10.89 L (12.00-20.00) Ratio Calcium 8.3 L (8.7-10.3) mg/dL Microbiology - Last 24 Hours (Table) 10/22/21 20:35 Blood Culture - Preliminary Blood No Growth after 96 hours 10/22/21 20:20 Blood Culture - Preliminary Blood No Growth after 96 hours Assessment and Plan (1) Pneumonia Current Visit: Yes Status: Acute Code(s): J18.9 - PNEUMONIA, UNSPECIFIED ORGANISM SNOMED Code(s): 744780114 Plan: 1patient presented hospital with left-sided chest pain cough did have elevated white count in this patient with underlying emphysema CT did shows consolidative change in the left lung suspicious for pneumonia possible community-acquired as patient white count responded to the Rocephin and Zithromax 2- sputum for gram stain and culture has been collected and cultures are growing Daily likely colonizer 3-patient has clinical improvement and will continue with Rocephin and Zithromax, finishing therapy with oral Ceftin Time with Patient: Less than 30
[2021-10-28 03:21] VITALS: RESP 18
[2021-10-28] MEDS: LEVOTHYROXINE 112 MCG TAB PO SCH (05:50)
[2021-10-28] MEDS: HYDROcodone/APAP 10-325MG 1 EACH TAB PO PRN ×2 (05:50→10:58)
[2021-10-28] MEDS: BACLOFEN 10 MG TAB PO PRN (05:50)
[2021-10-28 06:45] VITALS: BP 111/67; TEMP 98.2
[2021-10-28] MEDS: ALBUTEROL NEBULIZED 2.5 MG/3 ML INHALATION SCH ×2 (07:19→11:06)
[2021-10-28] MEDS: BUDESONIDE 0.5 MG/2 ML NEBU INHALATION SCH (07:19)
[2021-10-28] MEDS: OXYBUTYNIN CHLORIDE 5 MG TAB PO SCH (09:06)
[2021-10-28] MEDS: ASPIRIN 81 MG PO SCH (09:07)
[2021-10-28] MEDS: FUROSEMIDE 40 MG TAB PO SCH (09:07)
[2021-10-28] MEDS: SERTRALINE 100 MG TAB PO SCH (09:07)
[2021-10-28] MEDS: PANTOPRAZOLE 40 MG TABLET PO SCH (09:07)
[2021-10-28] MEDS: CHOLECALCIFEROL 25 MCG (1000 IU) TABLET PO SCH (09:08)
[2021-10-28] MEDS: MULTIVITAMINS, THERA 1 EACH TAB PO SCH (09:08)
[2021-10-28] MEDS: APIXABAN 5 MG TAB PO SCH (09:08)
[2021-10-28] MEDS: POTASSIUM CHLORIDE ER 20 MEQ TAB.ER PO SCH (09:08)
[2021-10-28] MEDS: HYDROCORTISONE 10 MG TAB PO SCH ×2 (09:09→10:58)
[2021-10-28 09:31] LABS: African American GFR (CKD) 47.5 (60.0-200.0); Anion Gap 7.8 mmol/L (10.00-18.00); BUN/Creat Ratio 10.92 Ratio (12.00-20.00); Blood Urea Nitrogen 14.2 mg/dL (9.0-27.0); Calcium 8.1 mg/dL (8.7-10.3); Carbon Dioxide 27.2 mmol/L (20.0-27.5); Potassium 4.1 mmol/L (3.5-5.5)
[2021-10-28] MEDS: ONDANSETRON 4 MG/2 ML VIAL IVP PRN (09:39)
--- NOTE | 2021-10-28 09:42 | P.PN ---
Subjective Progress Note Date: 10/27/21 Patient is a 70-year-old female with known history of asthma/COPD, history NM, on home oxygen at 2 L via nasal cannula, history of pituitary tumor status post resection, chronic renal insufficiency, coronary artery disease with history of stent placement, anxiety and appears active smoking and other multiple medical problems came to the ER with complaints of upper back pain. Patient states that she has a T8 compression fracture which was found during recent admission. Due to severe pain patient was also having trouble breathing and and was having shortness of breath due to severe pain. She was recently admitted to [facility] last week and was released after a 5-day stay. Apparently as per her daughter patient is not taking able to take care of herself at home with the back surgery. Patient is on [place] tens every 4 hourly at home. No complaints of chest pain. No nausea vomiting abdominal pain or diarrhea. No cough or sputum production. Patient has been afebrile. Chest x-ray showed hazy opacities within the left lung base are new from prior may represent atelectasis and evolving airspace disease. COPD changes CT angiogram of the chest was done due to sharp pain showed no evidence of PE. Consolidation changes within the inferior aspect of the left upper lobe ashton perimposed on emphysema changes correlate for pneumonia. Compression deformities of T8 and L1 of at least 70% and near complete height loss of L1. L1 . appears to be chronic. Laboratory data showed WBC 14.3 hemoglobin 14.5 and platelets 203 and neutrophils 12 Sodium 138 chloride 107 bicarb is 24 BUN 18 and creatinine 1.25 Calcium 8.1 magnesium 2.5 AST 59 ALT 38 alk phos 124 troponin less than 0.012 proBNP 890 Coronavirus PCR not detected Lactic acid 2.4 and CRP 15.6 10/24/2021 Patient is currently resting in the bed. Awake alert and oriented x3. Still complains of back pain requiring IV pain medications. Patient does have cough and unable to bring out any sputum. No nausea vomiting or abdominal pain. Tolerating oral diet slowly. No fever no chills. Laboratory data showed BUN 39 creatinine 1.13 AST 41 ALT 35. ID is on board. Patient is being current on antibiotics in the form of ce ftriaxone and. Anticoagulation in the form of Eliquis. Cultures have been negative so far. 10/25/2021 Patient is lying bed. Awake alert oriented x3. Afebrile. Current on antibiotics now on ceftriaxone. Patient does have cough. Also complaining of shortness of breath. No nausea vomiting abdominal pain or diarrhea. Patient was seen by orthopedic surgery and back brace was ordered. Continued pain management with Dilaudid. Cultures have been negative. Laboratory data showed WBC 11.8 hemoglobin 11.2 and platelets 208 sodium 145 potassium 3.2 chloride 108 bicarb is 24.3 BUN 5.1 creatinine 1.0 procalcitonin level is 0.11. Legionella urine antigen negative. ID is on board. 10/26/2021 Patient is complaining of back pain and shortness of breath. Unable to get herself out of the bed. PT OT was consulted. Patient does have cough with minimal sputum production. No nausea vomiting abdo mariela pain or diarrhea. No fever no chills currently requiring oxygen at 2 L via nasal cannula. Laboratory data reviewed. Orthopedic surgery and ID is on board. Sputum cultures and blood cultures have been negative. PT OT is on board and possible discharge to rehab. Patient is currently lying in the bed. Denies any complaints of difficulty breathing today. Patient does have cough without any sputum production., Improved. No fever no chills. Otherwise patient did have was seen by orthopedic surgery and back brace was fitted. Back pain is improving slowly. Recommends to continue with current management and if conservative measures fail orthopedic surgery recommends kyphoplasty surgery. PT OT is following. Patient is being continued on antibiotics in the form of ceftriaxone and azithromycin. Sputum culture showed Daily species likely colonization. Laboratory showed WBC 12.9 hemoglobin 10.8 and platelets 222 Sodium 144 potassium 3.6 chloride 107 bicarb is 25 BUN 12.1 creatinine 1.1 and calcium 8.3. Anticipate discharge to rehab. Current medications reviewed.. Objective - Vital Signs Vital signs: Vital Signs Temp 97.8 F 10/27/21 06:52 Pulse 94 10/27/21 11:54 Resp 16 10/27/21 06:52 BP 105/62 10/27/21 06:52 Pulse Ox 92 L 10/27/21 06:52 Intake & Output 10/26/21 10/27/21 10/27/21 18:59 06:59 18:59 Intake Total 855 Output Total 750 50 Balance 105 -50 Intake: Intake, IV Titration 75 Amount Sodium Chloride 0.9% 1, 75 000 ml @ 75 mls/hr IV . [id number] [facility] Rx#:[id number] Oral 780 Output: Urine 750 Emesis 50 Other: Voiding Method External Catheter Diaper Incontinent # Voids 3 2 # Bowel Movements 1 1 1 - Exam PHYSICAL EXAMINATION: Patient is lying in the bed comfortably, no acute distress, awake alert and oriented.. HEENT: Normocephalic. Neck is supple. Pupils reactive. Nostrils clear. Oral cavity is moist. Neck reveals no JVD, carotid bruits, or thyromegaly. CHEST EXAMINATION: Trachea is central. Symmetrical expansion. Bibasilar diminished sounds otherwise Lung carrion clear to auscultation and percussion. CARDIAC: Normal S1, S2 with no gallops. No murmurs ABDOMEN: Soft. Bowel sounds normal. No organomegaly. No abdominal bruits. Extremities: reveal no edema. No clubbing or cyanosis Neurologically awake, alert, oriented x3 with well-coordinated movements. No focal deficits noted Skin: No rash or skin lesions. Psychiatric: Coperative. Nonsuicidal Musculoskeletal: No joint swelling or deformity. Normal range of motion. - Labs CBC & Chem 7: 10/27/21 05:01 10/28/21 04:31 Labs: Abnormal Lab Results - Last 24 Hours (Table) 10/27/21 10/27/21 Range/Units 05:01 05:01 WBC 12.99 H (4.50-10.00) X 10*3/uL RBC 3.56 L (4.10-5.20) X 10*6/uL Hgb 10.8 L (12.0-15.0) g/dL Hct 35.2 L (37.2-46.3) % MCV 98.9 H (80.0-97.0) fL MCHC 30.7 L (32.0-37.0) g/dL RDW 14.6 H (11.5-14.5) % Immature Gran # 0.23 H (0.00-0.04) X 10*3/uL Neutrophils # 9.84 H (1.80-7.70) X 10*3/uL Est GFR (CKD-EPI)AfAm 56.8 L (60.0-200.0) Est GFR (CKD-EPI)NonAf 49.0 L (60.0-200.0) BUN/Creatinine Ratio 10.89 L (12.00-20.00) Ratio Calcium 8.3 L (8.7-10.3) mg/dL Microbiology - Last 24 Hours (Table) 10/25/21 15:05 Gram Stain - Final Sputum Sputum Culture - Final Daily sp,not albicans/galbr 10/22/21 20:35 Blood Culture - Preliminary Blood No Growth after 96 hours 10/22/21 20:20 Blood Culture - Preliminary Blood No Growth after 96 hours Assessment and Plan Assessment: Acute on chronic back pain with T8 compression fracture. Changes seem to be chronic as per CTA chest.Patient was seen by orthopedic surgery. Continued on pain management and back brace. Left lower lobe pneumonia Sepsis secondary to above Mild acute kidney injury likely prerenal Mild transaminitis History NM Coronary disease with history of stent placement COPD on home oxygen at 2 L via nasal cannula History of pituitary tumor s/p resection. On Cortef Right eye blindness Anxiety Previous history of smoking DVT prophylaxis on Eliquis already. Plan: Patient will be continued on pain management with Dilaudid IV and gradually transition to by mouth. Continue with antibiotics ceftriaxone and azithromycin. Repeat chest x-ray showed left lower lobe infiltrate. Current with home medications and follow-up closely. ID is following. PT OT consulted. Prognosis is patient may need guarded. Patient may need rehab transfer. Time with Patient: Greater than 30
[2021-10-28 11:18] VITALS: PULSE 82
[2021-10-28 13:19] LABS: Basophils # (M) 0 X 10*3/uL (0.00-0.10); HGB 9.7 g/dL (12.0-15.0); Lymphocytes # (M) 1.79 X 10*3/uL (0.90-5.00); MCH 30.6 pg (27.0-32.0); MCHC 30.3 g/dL (32.0-37.0); MCV 100.9 fL (80.0-97.0); Mean Platelet Volume 11.6 fL (9.5-12.2); NRBC Per 100 WBC 0.2 /100 WBCS (0.0-0.0); Neutrophils # (M) 7.36 X 10*3/uL (2.00-8.90); Neutrophils % (M) 74 %; Platelet Count 233 X 10*3/uL (140-440); RBC 3.17 X 10*6/uL (4.10-5.20); RBC Morphology NORMAL; RDW 14.6 % (11.5-14.5); WBC 9.95 X 10*3/uL (4.50-10.00)
--- NOTE | 2021-10-28 13:26 | P.DS ---
Providers Date of admission: 10/22/21 22:55 Expected date of discharge: 10/28/21 Attending physician: Kateryna Bautista Consults: 10/23/21 09:13 Consult Physician Urgent Consulting Provider: Giulia Patel Consult Reason/Comments: sepsis Do you want consulting provider notified?: Yes 10/25/21 10:17 Consult Physician Routine Consulting Provider: Frida Hernandez Consult Reason/Comments: Severe back pain Do you want consulting provider notified?: Yes Primary care physician: Ora Ramon Hospital Course: Discharge Diagnosis Acute on chronic back pain with T8 compression fracture. Changes seem to be chronic as per CTA chest.Patient was seen by orthopedic surgery. Continued on pain management and back brace. Left lower lobe pneumonia Sepsis secondary to above Mild acute kidney injury likely prerenal Mild transaminitis History NH Coronary disease with history of stent placement COPD on home oxygen at 2 L via nasal cannula hx of ICD placement History of pituitary tumor s/p resection. On Cortef Right eye blindness Anxiety Previous history of smoking DVT prophylaxis on Eliquis already. Hospital course Patient is a 70-year-old female with known history of asthma/COPD, history NH, on home oxygen at 2 L via nasal cannula, history of pituitary tumor status post resection, chronic renal insufficiency, coronary artery disease with history of stent placement, anxiety and appears active smoking and other multiple medical problems came to the ER with complaints of upper back pain. Patient states that she has a T8 compression fracture which was found during recent admission. Due to severe pain patient was also having trouble breathing and and was having shortness of breath due to severe pain. She was recently admitted to [facility] last week and was released after a 5-day stay. Apparently as per her daughter patient is not taking able to take care of herself at home with the back surgery. Patient is on [place] tens every 4 hourly at home. No complaints of chest pain. No nausea vomiting abdominal pain or diarrhea. No cough or sputum production. Patient has been afebrile. Chest x-ray showed hazy opacities within the left lung base are new from prior may represent atelectasis and evolving airspace disease. COPD changes CT angiogram of the chest was done due to sharp pain showed no evidence of PE. Consolidation changes within the inferior aspect of the left upper lobe superimposed on emphysema changes correlate for pneumonia. Compression deformities of T8 and L1 of at least 70% and near complete height loss of L1. L1 . appears to be chronic. Laboratory data showed WBC 14.3 hemoglobin 14.5 and platelets 203 and neutrophils 12 Sodium 138 chloride 107 bicarb is 24 BUN 18 and creatinine 1.25 Calcium 8.1 magnesium 2.5 AST 59 ALT 38 alk phos 124 troponin less than 0.012 proBNP 890 Coronavirus PCR not detected Lactic acid 2.4 and CRP 15.6 10/24/2021 Patient is currently resting in the bed. Awake alert and oriented x3. Still c omplains of back pain requiring IV pain medications. Patient does have cough and unable to bring out any sputum. No nausea vomiting or abdominal pain. Tolerating oral diet slowly. No fever no chills. Laboratory data showed BUN 39 creatinine 1.13 AST 41 ALT 35. ID is on board. Patient is being current on antibiotics in the form of ceftriaxone and. Anticoagulation in the form of Eliquis. Cultures have been negative so far. 10/25/2021 Patient is lying bed. Awake alert oriented x3. Afebrile. Current on antibiotics now on ceftriaxone. Patient does have cough. Also complaining of shortness of breath. No nausea vomiting abdominal pain or diarrhea. Patient was seen by orthopedic surgery and back brace was ordered. Continued pain management with Dilaudid. Cultures have been negative. Laboratory data showed WBC 11.8 hemoglobin 11.2 and platelets 208 sodium 145 potassium 3.2 chloride 108 bicarb is 24.3 BUN 5.1 creatinine 1.0 procalcitonin level is 0.11. Legionella urine antigen negative. ID is on board. 10/26/2021 Patient is complaining of back pain and shortness of breath. Unable to get herself out of the bed. PT OT was consulted. Patient does have cough with minimal sputum production. No nausea vomiting abdominal pain or diarrhea. No fever no chills currently requiring oxygen at 2 L via nasal cannula. Laboratory data reviewed. Orthopedic surgery and ID is on board. Sputum cultures and blood cultures have been negative. PT OT is on board and possible discharge to rehab. Patient is currently lying in the bed. Denies any complaints of difficulty breathing today. Patient does have cough without any sputum production., Improved. No fever no chills. Otherwise patient did have was seen by orthopedic surgery and back brace was fitted. Back pain is improving slowly. Recommends to continue with current management and if conservative measures fail orthopedic surgery recommends kyphoplasty surgery. PT OT is following. Patient is being continued on antibiotics in the form of ceftriaxone and azithromycin. Sputum culture showed Daily species likely colonization. Laboratory showed WBC 12.9 hemoglobin 10.8 and platelets 222 Sodium 144 potassium 3.6 chloride 107 bicarb is 25 BUN 12.1 creatinine 1.1 and calcium 8.3. Anticipate discharge to rehab. 10/28/2021 Patient is currently resting in the bed. Awake alert oriented x3. No complaints of chest pain or worsening shortness of breath. Breathing status is improved today. No cough or sputum production. Otherwise back pain is also controlled with medications. Patient does have back brace. Patient will be continued on PT OT and transferred to rehab likely today. No other acute overnight issues. No nausea vomiting abdominal pain or diarrhea. Patient is tolerating oral diet. Patient will need to follow-up with primary care physician upon discharge. And also orthopedic surgery due to her chronic back pain. - Exam PHYSICAL EXAMINATION: Patient is lying in the bed comfortably, no acute distress, awake alert and oriented.. HEENT: Normocephalic. Neck is supple. Pupils reactive. Nostrils clear. Oral cavity is moist. Neck reveals no JVD, carotid bruits, or thyromegaly. CHEST EXAMINATION: Trachea is central. Symmetrical expansion. bilateral improved air entry. CARDIAC: Normal S1, S2 with no gallops. No murmurs ABDOMEN: Soft. Bowel sounds normal. No organomegaly. No abdominal bruits. Extremities: reveal no edema. No clubbing or cyanosis Neurologically awake, alert, oriented x3 with well-coordinated movements. No focal deficits noted Skin: No rash or skin lesions. Psychiatric: Coperative. Nonsuicidal Musculoskeletal: No joint swelling or deformity. Normal range of motion. Vital Signs 10/28/21 10/28/21 10/28/21 06:44 07:21 07:33 Temperature 98.2 F Pulse Rate 84 80 Pulse Rate [ 89 Pulse Oximetery ] Respiratory 18 Rate Blood Pressure 111/67 [Right Arm] O2 Sat by Pulse 93 L 93 L Oximetry 10/28/21 10/28/21 11:07 11:17 Temperature Pulse Rate 88 82 Pulse Rate [ Pulse Oximetery ] Respiratory Rate Blood Pressure [Right Arm] O2 Sat by Pulse Oximetry time taken >35 min Patient Condition at Discharge: Good Plan - Discharge Summary Discharge Rx Participant: No New Discharge Prescriptions: New Cefuroxime Axetil [Ceftin] 500 mg PO BID 4 Days #8 tab Continue Nitroglycerin Sl Tabs [Nitrostat] 0.4 mg SUBLINGUAL Q5M PRN PRN Reason: Chest Pain Multivitamins, Thera [Multivitamin (formulary)] 1 tab PO DAILY Metoprolol Tartrate 12.5 mg PO HS Montelukast [Singulair] 10 mg PO HS Oxybutynin Chloride 5 mg PO BID Hydrocortisone [Cortef] 15 mg PO W/BRKFST Furosemide [Lasix] 40 mg PO DAILY Potassium Chloride [Klor-Con 20] 20 meq PO DAILY Omeprazole 20 mg PO DAILY Aspirin 81 mg PO DAILY Albuterol Nebulized [Ventolin Nebulized] 2.5 mg INHALATION RT-QID Baclofen 10 mg PO TID PRN PRN Reason: Pain Budesonide [Pulmicort] 0.5 mg INHALATION RT-BID Loratadine [Claritin] 10 mg PO HS Apixaban [Eliquis] 5 mg PO BID Cholecalciferol [Vitamin D3 (25 Mcg = 1000 Iu)] 50 mcg PO DAILY Sertraline [Zoloft] 100 mg PO DAILY QUEtiapine [SEROquel] 50 mg PO HS Levothyroxine Sodium [Synthroid] 112 mcg PO DAILY Hydrocortisone [Cortef] 5 mg PO W/LUNCH HYDROcodone/APAP 10-325MG [[place] 10-325] 1 tab PO Q4HR PRN 3 Days #12 tab PRN Reason: Pain Discharge Medication List Aspirin 81 mg PO DAILY 01/06/16 [History] Furosemide [Lasix] 40 mg PO DAILY 01/06/16 [History] Hydrocortisone [Cortef] 15 mg PO W/BRKFST 01/06/16 [History] Metoprolol Tartrate 12.5 mg PO HS 01/06/16 [History] Montelukast [Singulair] 10 mg PO HS 01/06/16 [History] Multivitamins, Thera [Multivitamin (formulary)] 1 tab PO DAILY 01/06/16 [His tory] Nitroglycerin Sl Tabs [Nitrostat] 0.4 mg SUBLINGUAL Q5M PRN 01/06/16 [History] Omeprazole 20 mg PO DAILY 01/06/16 [History] Oxybutynin Chloride 5 mg PO BID 01/06/16 [History] Potassium Chloride [Klor-Con 20] 20 meq PO DAILY 01/06/16 [History] Albuterol Nebulized [Ventolin Nebulized] 2.5 mg INHALATION RT-QID 11/05/17 [History] Apixaban [Eliquis] 5 mg PO BID 10/22/21 [History] Baclofen 10 mg PO TID PRN 10/22/21 [History] Budesonide [Pulmicort] 0.5 mg INHALATION RT-BID 10/22/21 [History] Cholecalciferol [Vitamin D3 (25 Mcg = 1000 Iu)] 50 mcg PO DAILY 10/22/21 [History] Hydrocortisone [Cortef] 5 mg PO W/LUNCH 10/22/21 [History] Levothyroxine Sodium [Synthroid] 112 mcg PO DAILY 10/22/21 [History] Loratadine [Claritin] 10 mg PO HS 10/22/21 [History] QUEtiapine [SEROquel] 50 mg PO HS 10/22/21 [History] Sertraline [Zoloft] 100 mg PO DAILY 10/22/21 [History] Cefuroxime Axetil [Ceftin] 500 mg PO BID 4 Days #8 tab 10/28/21 [Rx] HYDROcodone/APAP 10-325MG [[place] 10-325] 1 tab PO Q4HR PRN 3 Days #12 tab 10/28/21 [Rx] Follow up Appointment(s)/Referral(s): Ora Ramon MD [Primary Care Provider] - 1-2 days Arash Duron PAC [PHYSICIAN [employer]ER] - 2 Weeks (Patient may follow-up with Arash Duron PA-C or Dr. Darryl Hernandez at [facility] in 2-3 weeks following discharge. ) Selam De Los Santos, [NON-STAFF] - As Needed Jose Auguste [NON-STAFF] - As Needed (TLSO back brace) Activity/Diet/Wound Care/Special Instructions: 1. Patient should wear Spinomed TLSO brace for comfort and support while sitting upright at greater than 45, while working with therapy, and while ambulating; patient does not have to wear the brace while lying in bed or bathing 2. Patient should avoid excessive bending, twisting, and lifting; no lifting greater than 10 pounds Discharge Disposition: TRANSFER TO SNF/ECF
[2021-11-02 18:04] LABS: S.pneumoniae Serotype 1 (1) 0.8 mcg/mL (>=2.3); S.pneumoniae Serotype 10A (34) <0.4 mcg/mL (>=2.9); S.pneumoniae Serotype 12F (12) 0.4 mcg/mL (>=0.6); S.pneumoniae Serotype 14 (14) 0.4 mcg/mL (>=7.0); S.pneumoniae Serotype 15B (54) <0.4 mcg/mL (>=3.3); S.pneumoniae Serotype 19A (57) 11.2 mcg/mL (>=17.1); S.pneumoniae Serotype 19F (19) 1.3 mcg/mL (>=15.0); S.pneumoniae Serotype 20 (20) <0.4 mcg/mL (>=1.3); S.pneumoniae Serotype 22F (22) 2.6 mcg/mL (>=7.2); S.pneumoniae Serotype 3 (3) <0.4 mcg/mL (>=1.8); S.pneumoniae Serotype 4 (4) <0.4 mcg/mL (>=0.6); S.pneumoniae Serotype 5 (5) 3.1 mcg/mL (>=10.7); S.pneumoniae Serotype 6B (26) <0.4 mcg/mL (>=4.7); S.pneumoniae Serotype 7F (51) 1.8 mcg/mL (>=3.2); S.pneumoniae Serotype 8 (8) 0.6 mcg/mL (>=2.9)
--- NOTE | 2021-11-04 21:17 | P.PN ---
Subjective Progress Note Date: 10/28/21 Principal diagnosis: Pneumonia Patient is a 70-year-old female presenting to the hospital with left- sided chest pain and cough in this patient did have a CT suspicious for pneumonia possible community acquired On today's evaluation her that is 10/28/2021, the patient is afebrile, the patient is breathing comfortably, the patient cough has decreased in intensity not bringing up any sputum , the patient denies nausea no vomiting no abdominal pain no diarrhea Objective - Vital Signs Vital signs: Vital Signs Temp 98.2 F 10/28/21 06:44 Pulse 82 10/28/21 11:17 Resp 18 10/28/21 06:44 BP 111/67 10/28/21 06:44 Pulse Ox 93 L 10/28/21 07:21 Intake & Output 10/27/21 10/28/21 10/28/21 18:59 06:59 18:59 Output Total 50 Balance -50 Output: Emesis 50 Other: Voiding Method Diaper Diaper Incontinent Incontinent # Voids 2 1 # Bowel Movements 1 1 - Exam GENERAL DESCRIPTION: An elderly female lying in bed in no distress RESPIRATORY SYSTEM: Unlabored breathing , decreased breath sounds at bases HEART: S1 S2 regular rate and rhythm , ABDOMEN: Soft , no tenderness EXTREMITIES: No edema feet - Labs CBC & Chem 7: 10/28/21 04:31 10/28/21 04:31 Labs: Abnormal Lab Results - Last 24 Hours (Table) 10/28/21 Range/Units 04:31 Anion Gap 7.80 L (10.00-18.00) mmol/L Est GFR (CKD-EPI)AfAm 47.5 L (60.0-200.0) Est GFR (CKD-EPI)NonAf 41.0 L (60.0-200.0) BUN/Creatinine Ratio 10.92 L (12.00-20.00) Ratio Calcium 8.1 L (8.7-10.3) mg/dL Microbiology - Last 24 Hours (Table) 10/22/21 20:35 Blood Culture - Preliminary Blood No Growth after 120 hours 10/22/21 20:20 Blood Culture - Preliminary Blood No Growth after 120 hours 10/25/21 15:05 Gram Stain - Final Sputum Sputum Culture - Final Daily sp,not albicans/galbr Assessment and Plan (1) Pneumonia Status: Acute Code(s): J18.9 - PNEUMONIA, UNSPECIFIED ORGANISM SNOMED Code(s): 824800297 Plan: 1patient presented hospital with left-sided chest pain cough did have elevated white count in this patient with underlying emphysema CT did shows consolidative change in the left lung suspicious for pneumonia possible community-acquired as patient white count responded to the Rocephin and Zithromax 2- sputum for gram stain and culture has been collected and cultures are growing Daily likely colonizer 3-patient has clinical improvement with Rocephin and Zithromax, and will finish therapy with a short course of oral Ceftin Time with Patient: Less than 30
== END 2021-10-28 13:16 | DRG 871 ==
LOC: EC 17:15 → 4SSUR 22:55 → UNDODISIN 10-25 14:21
PROVIDERS: ADMIT Hospitalist; ATTEND Hospitalist
DX: A41.9 Sepsis, unspecified organism (principal); J18.9 Pneumonia, unspecified organism; M48.56XA Collapsed vertebra, not elsewhere classified, lumbar region, initial encounter for fracture; N17.9 Acute kidney failure, unspecified; M48.54XA Collapsed vertebra, not elsewhere classified, thoracic region, initial encounter for fracture; J96.11 Chronic respiratory failure with hypoxia; F17.200 Nicotine dependence, unspecified, uncomplicated; F41.9 Anxiety disorder, unspecified; G89.29 Other chronic pain; H54.61 Unqualified visual loss, right eye, normal vision left eye; I25.10 Atherosclerotic heart disease of native coronary artery without angina pectoris; I25.2 Old myocardial infarction; J43.9 Emphysema, unspecified; I50.9 Heart failure, unspecified; K59.03 Drug induced constipation; M41.86 Other forms of scoliosis, lumbar region; M51.34 Other intervertebral disc degeneration, thoracic region; N18.9 Chronic kidney disease, unspecified; R65.20 Severe sepsis without septic shock; Z20.822 Contact with and (suspected) exposure to COVID-19; T40.2X5A Adverse effect of other opioids, initial encounter; Z79.01 Long term (current) use of anticoagulants; Z79.82 Long term (current) use of aspirin; Z79.890 Hormone replacement therapy; Z79.899 Other long term (current) drug therapy; Z82.5 Family history of asthma and other chronic lower respiratory diseases; Z90.710 Acquired absence of both cervix and uterus; Z95.5 Presence of coronary angioplasty implant and graft; Z95.810 Presence of automatic (implantable) cardiac defibrillator; Z99.81 Dependence on supplemental oxygen
CPT/HCPCS: 36415; 71046; 71275; 80048; 80053; 83605; 83735; 83880; 84145; 84484; 85025; 85610; 85730; 86140; 86317; 87040; 87070; 87205; 87449; 87635; 93005; 94640; 94760; 96365; 96367; 96375; 99291